=== PATIENT | female | born 1980 | race Caucasian/White ===

== ENCOUNTER 2017-07-31 14:05 | Emergency (ER) | payer SELFPAY ==
[~2017-07-31] VITALS: Ht 162.6 cm; Wt 68.0 kg
[2017-07-31 14:12] VITALS: BP 117/80; PULSE 98; RESP 18; TEMP 98; O2SAT 98
[2017-07-31] MEDS ORDERED: CLINDAMYCIN INJ 600 MG in SODIUM CHLORIDE 0.9% INJ 100 ML IV ONE (15:00)
[2017-07-31] MEDS ORDERED: SODIUM CHLOR 0.9% 1000 ML INJ 1,000 ML IV ONE (15:00)
[2017-07-31] MEDS ORDERED: LIDOCAINE HCL 1% 50 ML VIAL INFIL ONE (15:00)
[2017-07-31] MEDS ORDERED: KETOROLAC TROMETHAMINE 30 MG/ML (IVP) VIAL IVP ONE (15:00)
--- NOTE | 2017-07-31 15:07 | PD ---
HPI Chief Complaint: Skin Problem Time Seen by Provider: 14:38 Travel History International Travel<30 days: No Contact w/Intl Traveler<30days: No Traveled to known affect area: No History of Present Illness HPI The patient is a 37-year-old female who presents to the emergency department for an abscess left forearm. The patient has a history of IV drug abuse, heroin and Dilaudid. The patient states she last used 3-4 days ago. The patient injected the left upper extremity near the elbow, has now developed an abscess. She now notes swelling of the lateral aspect of the elbow with some surrounding erythema and edema. The area is painful. She denies any fever. She denies any Co. chills or sweats. Symptoms are moderate. Pain is worse with palpation and movement. She denies any known history of DVT secondary to IV drug abuse. PFSH Past Medical History Blood Disorders: No Anxiety: Yes Depression: Yes Cancer: No Cardiovascular Problems: No Diminished Hearing: No Endocrine: No Genitourinary: No Headaches: Yes Immune Disorder: No Musculoskeletal: Yes Neurologic: Yes Psychiatric: Yes Reproductive: No Respiratory: No Seizures: No (WHEN GOING THROUGH WITHDRAWAL) ?: Not LMP: 07/26/17 Past Surgical History Other Surgery: Yes (SINUS SURG) Social History Alcohol Use: No Tobacco Use: Yes Substance Use: Yes (TWO DAYS AGO SHE STOPPED BENZO) Allergies-Medications (Allergen,Severity, Reaction): Coded Allergies: No Known Allergies (Unverified , 07/31/17) Review of Systems Except as stated in HPI: all other systems reviewed are Neg General / Constitutional: No: Fever, Chills Cardiovascular: No: Chest Pain or Discomfort Respiratory: No: Shortness of Breath Gastrointestinal: No: Nausea, Vomiting, Abdominal Pain Musculoskeletal: Positive: Edema, Pain Skin: Positive Other (Abscess left elbow) Physical Exam Narrative GENERAL: Awake, alert, pleasant 37-year-old female who appears her stated age and is in no acute respiratory distress. SKIN: Focused skin assessment warm/dry. Multiple tattoos noted. HEAD: Atraumatic. Normocephalic. EYES: Pupils equal and round. No scleral icterus. No injection or drainage. ENT: No nasal bleeding or discharge. Mucous membranes pink and moist. NECK: Trachea midline. No JVD. CARDIOVASCULAR: Regular rate and rhythm. No murmur appreciated. Heart rate in the 90s. RESPIRATORY: No accessory muscle use. Clear to auscultation. Breath sounds equal bilaterally. MUSCULOSKELETAL: The patient has an abscess located in the lateral aspect of the elbow is approximate 4 cm in diameter with underlying fluctuance and surrounding erythema. Positive left radial pulse. The patient is able to flex and extend the elbow, does not appear to be septic joint, however, range of motion does increase her pain. NEUROLOGICAL: Awake and alert. No obvious cranial nerve deficits. Motor grossly within normal limits. Normal speech. PSYCHIATRIC: Appropriate mood and affect; insight and judgment normal. Data Data Last Documented VS Vital Signs Date Time Temp Pulse Resp B/P (MAP) Pulse Ox O2 Delivery O2 Flow Rate FiO2 07/31/17 14:12 98.0 98 18 117/80 (92) 98 Orders Orders Basic Metabolic Panel (Bmp) (07/31/17 14:56) Complete Blood Count With Diff (07/31/17 14:56) Blood Culture (07/31/17 14:56) Wound Culture And Gram Stain (07/31/17 14:56) Iv Access Insert/Monitor (07/31/17 14:56) Ketorolac Inj (Toradol Inj) (07/31/17 15:00) Clindamycin Inj (Cleocin Inj) (07/31/17 15:00) Lidocaine 1% Inj (50 Ml) (Xylocaine 1% I (07/31/17 15:00) Sodium Chlor 0.9% 1000 Ml Inj (Ns 1000 M (07/31/17 15:00) Labs Laboratory Tests Test 07/31/17 15:19 White Blood Count 10.6 TH/MM3 Red Blood Count 3.88 MIL/MM3 Hemoglobin 12.0 GM/DL Hematocrit 35.1 % Mean Corpuscular Volume 90.6 FL Mean Corpuscular Hemoglobin 31.0 PG Mean Corpuscular Hemoglobin Concent 34.2 % Red Cell Distribution Width 15.5 % Platelet Count 530 TH/MM3 Mean Platelet Volume 9.0 FL Neutrophils (%) (Auto) 70.6 % Lymphocytes (%) (Auto) 19.3 % Monocytes (%) (Auto) 8.4 % Eosinophils (%) (Auto) 1.3 % Basophils (%) (Auto) 0.4 % Neutrophils # (Auto) 7.5 TH/MM3 Lymphocytes # (Auto) 2.0 TH/MM3 Monocytes # (Auto) 0.9 TH/MM3 Eosinophils # (Auto) 0.1 TH/MM3 Basophils # (Auto) 0.0 TH/MM3 CBC Comment DIFF FINAL Differential Comment Blood Urea Nitrogen 5 MG/DL Creatinine 0.70 MG/DL Random Glucose 87 MG/DL Calcium Level 8.7 MG/DL Sodium Level 135 MEQ/L Potassium Level 3.6 MEQ/L Chloride Level 99 MEQ/L Carbon Dioxide Level 27.4 MEQ/L Anion Gap 9 MEQ/L Estimat Glomerular Filtration Rate 95 ML/MIN [facility] Medical Decision Making Medical Screen Exam Complete: Yes Emergency Medical Condition: Yes Medical Record Reviewed: Yes Interpretation(s) Laboratory Tests Test 07/31/17 15:19 White Blood Count 10.6 TH/MM3 Red Blood Count 3.88 MIL/MM3 Hemoglobin 12.0 GM/DL Hematocrit 35.1 % Mean Corpuscular Volume 90.6 FL Mean Corpuscular Hemoglobin 31.0 PG Mean Corpuscular Hemoglobin Concent 34.2 % Red Cell Distribution Width 15.5 % Platelet Count 530 TH/MM3 Mean Platelet Volume 9.0 FL Neutrophils (%) (Auto) 70.6 % Lymphocytes (%) (Auto) 19.3 % Monocytes (%) (Auto) 8.4 % Eosinophils (%) (Auto) 1.3 % Basophils (%) (Auto) 0.4 % Neutrophils # (Auto) 7.5 TH/MM3 Lymphocytes # (Auto) 2.0 TH/MM3 Monocytes # (Auto) 0.9 TH/MM3 Eosinophils # (Auto) 0.1 TH/MM3 Basophils # (Auto) 0.0 TH/MM3 CBC Comment DIFF FINAL Differential Comment Blood Urea Nitrogen 5 MG/DL Creatinine 0.70 MG/DL Random Glucose 87 MG/DL Calcium Level 8.7 MG/DL Sodium Level 135 MEQ/L Potassium Level 3.6 MEQ/L Chloride Level 99 MEQ/L Carbon Dioxide Level 27.4 MEQ/L Anion Gap 9 MEQ/L Estimat Glomerular Filtration Rate 95 ML/MIN Differential Diagnosis Differential diagnosis includes abscess, cellulitis, infected wound, septic joint, IVDA, bacteremia, septicemia. Narrative Course IV was established, labs are drawn and sent, and the patient was placed on cardiac telemetry monitoring and continuous pulse oximetry monitoring. The abscess was drained at bedside. Lactic acid and blood culture were sent to lab. The patient was then administered clindamycin 600 mg intravenously 1 L of IV fluids. The patient's abscess was incised and drained by the mid-level provider, Claudio Fung PA-C, please refer to the procedure note. White count is unremarkable. The patient's blood culture and wound culture are pending. The patient is stable for outpatient follow-up, she is advised to follow-up within 48 hours for reevaluation of her abscess. She is also advised to start using drugs. Diagnosis Primary Impression: Abscess of left forearm Patient Instructions: General Instructions Additional Instructions: Medications as directed. Follow-up with your primary physician. Return if symptoms worsen or progress. Reevaluation in 48 hours. Stop using IV drugs. Med/Other Pt SpecificInfo: Prescription(s) given Scripts Clindamycin (Cleocin) 150 Mg Cap 150 MG PO Q6H for Infection for 7 Days, #28 CAP 0 Refills Prov: Kash Sellers MD 07/31/17 Sulfamethoxazole-Trimethoprim (Bactrim DS) 800-160 Mg Tab 1 TAB PO BID for Infection, #14 TAB 0 Refills Prov: Kash Sellers MD 07/31/17 Disposition: 01 DISCHARGE HOME Condition: Stable Kash Sellers MD Jul 31, 2017 15:07
[2017-07-31 15:45] LABS: AUTOMATED NEUTROPHIL # 7.5 TH/MM3 (1.8-7.7); BASOPHIL % 0.4 % (0.0-2.0); EOSINOPHIL # 0.1 TH/MM3 (0-0.4); EOSINOPHIL % 1.3 % (0.0-4.0); HEMATOCRIT 35.1 % (35.0-46.0); LYMPH % 19.3 % (9.0-44.0); MEAN CELL VOLUME 90.6 FL (80.0-100.0); MEAN CORPUSCULAR HGB CONC 34.2 % (32.0-36.0); MONO % 8.4 % (0.0-8.0); MONOCYTE # 0.9 TH/MM3 (0-0.9); NEUT % 70.6 % (16.0-70.0); PLATELET COUNT 530 TH/MM3 (150-450); RED BLOOD COUNT 3.88 MIL/MM3 (4.00-5.30); RED CELL DISTRIBUTION WIDTH 15.5 % (11.6-17.2); WHITE BLOOD COUNT 10.6 TH/MM3 (4.0-11.0)
[2017-07-31 16:16] LABS: BICARBONATE 27.4 MEQ/L (21.0-32.0); CALCIUM 8.7 MG/DL (8.5-10.1); CREATININE 0.7 MG/DL (0.50-1.00)
[2017-07-31] MEDS ORDERED: BACT800T5 PO (16:29)
[2017-07-31] MEDS ORDERED: CLIN150 PO (16:29)
--- NOTE | 2017-07-31 16:32 | PD ---
Physical Exam Date Seen by Provider: Jul 31, 2017 Time Seen by Provider: 16:31 Narrative 37-year-old female that presents to the ED for evaluation of left abscess to her left arm. I was asked drain abscess. Please refer to her note. Data Data Last Documented VS Vital Signs Date Time Temp Pulse Resp B/P (MAP) Pulse Ox O2 Delivery O2 Flow Rate FiO2 07/31/17 14:12 98.0 98 18 117/80 (92) 98 Orders Orders Basic Metabolic Panel (Bmp) (07/31/17 14:56) Complete Blood Count With Diff (07/31/17 14:56) Blood Culture (07/31/17 14:56) Wound Culture And Gram Stain (07/31/17 14:56) Iv Access Insert/Monitor (07/31/17 14:56) Ketorolac Inj (Toradol Inj) (07/31/17 15:00) Clindamycin Inj (Cleocin Inj) (07/31/17 15:00) Lidocaine 1% Inj (50 Ml) (Xylocaine 1% I (07/31/17 15:00) Sodium Chlor 0.9% 1000 Ml Inj (Ns 1000 M (07/31/17 15:00) Ed Discharge Order (07/31/17 16:30) Labs Laboratory Tests Test 07/31/17 15:19 White Blood Count 10.6 TH/MM3 Red Blood Count 3.88 MIL/MM3 Hemoglobin 12.0 GM/DL Hematocrit 35.1 % Mean Corpuscular Volume 90.6 FL Mean Corpuscular Hemoglobin 31.0 PG Mean Corpuscular Hemoglobin Concent 34.2 % Red Cell Distribution Width 15.5 % Platelet Count 530 TH/MM3 Mean Platelet Volume 9.0 FL Neutrophils (%) (Auto) 70.6 % Lymphocytes (%) (Auto) 19.3 % Monocytes (%) (Auto) 8.4 % Eosinophils (%) (Auto) 1.3 % Basophils (%) (Auto) 0.4 % Neutrophils # (Auto) 7.5 TH/MM3 Lymphocytes # (Auto) 2.0 TH/MM3 Monocytes # (Auto) 0.9 TH/MM3 Eosinophils # (Auto) 0.1 TH/MM3 Basophils # (Auto) 0.0 TH/MM3 CBC Comment DIFF FINAL Differential Comment Blood Urea Nitrogen 5 MG/DL Creatinine 0.70 MG/DL Random Glucose 87 MG/DL Calcium Level 8.7 MG/DL Sodium Level 135 MEQ/L Potassium Level 3.6 MEQ/L Chloride Level 99 MEQ/L Carbon Dioxide Level 27.4 MEQ/L Anion Gap 9 MEQ/L Estimat Glomerular Filtration Rate 95 ML/MIN [facility] Medical Record Reviewed: Yes Supervised Visit with RASHIDA: No Procedures Procedure Narrative After the risks and benefits were discussed the following procedure was performed: INCISION AND DRAINAGE OF ABSCESS: The area was prepped and was sterilely draped. A subcutaneous wheal of 1 % Xylocaine with a total number 8 mL was used to anesthetize the area. The area was properly anesthetized. A number 11 scalpel was used to make a 1 -cm incision across the area of the abscess. Cultures were obtained. The abscess was drained an irrigated with normal saline. Quarter inch iodoform packing was placed in the wound. Sterile dressing applied. Patient advised to have packing removed in two days. Diagnosis Primary Impression: Abscess of left forearm Patient Instructions: General Instructions Additional Instruction: Medications as directed. Follow-up with your primary physician. Return if symptoms worsen or progress. Reevaluation in 48 hours. Stop using IV drugs. Scripts Clindamycin (Cleocin) 150 Mg Cap 150 MG PO Q6H for Infection for 7 Days, #28 CAP 0 Refills Prov: Kash Sellers MD 07/31/17 Sulfamethoxazole-Trimethoprim (Bactrim DS) 800-160 Mg Tab 1 TAB PO BID for Infection, #14 TAB 0 Refills Prov: Kash Sellers MD 07/31/17 Disposition: 01 DISCHARGE HOME Condition: Stable Claudio Fung Jul 31, 2017 16:32
== END 2017-07-31 17:22 | disposition home or self-care (01) ==
LOC: NEPC 14:05
DX: L02.414 Cutaneous abscess of left upper limb (principal); F11.10 Opioid abuse, uncomplicated; Z72.0 Tobacco use
CPT/HCPCS: 10060; 80048; 85025; 87040; 96374; 96375; 99283; J1885; J7030

== ENCOUNTER 2017-09-07 07:33 | Inpatient (IN) ==
[2017-09-07 08:21] LABS: Baso % (Auto) 0.2 % (0.0-2.0); Eos # (Auto) 0.2 th/mm3 (0.0-0.4); Eos % (Auto) 1.2 % (0.0-4.0); Hematocrit 36.3 % (35.0-46.0); Hemoglobin 12.2 gm/dL (11.6-15.3); Lymph # (Auto) 1.3 th/mm3 (1.0-4.8); Lymph % (Auto) 8.1 % (9.0-44.0); Mean Corpuscular HGB Conc 33.5 % (32.0-36.0); Mean Corpuscular Hemoglobin 29.8 pg (27.0-34.0); Mean Corpuscular Volume 89.2 fL (80.0-100.0); Mean Platelet Volume 7.5 fL (7.0-11.0); Mono # (Auto) 1.2 th/mm3 (0.0-0.9); Mono % (Auto) 7.3 % (0.0-8.0); Neut # (Auto) 13.3 th/mm3 (1.8-7.7); Neut % (Auto) 83.2 % (16.0-70.0); Platelet Count 559 th/mm3 (150-450); Red Blood Count 4.07 mil/mm3 (4.00-5.30); Red Cell Distribution Width 14.1 % (11.6-17.2); White Blood Count 15.9 th/mm3 (4.0-11.0)
[2017-09-07 08:32] LABS: Anion Gap 5 meq/L (5-15); Blood Urea Nitrogen 7 mg/dL (7-18); Calcium 8.8 mg/dL (8.5-10.1); Carbon Dioxide 32.1 meq/L (21.0-32.0); Chloride 101 meq/L (98-107); Glomerular Filtration Rate Greater Than 89 mL/min (>89); Glucose,Random 98 mg/dL (74-106); Potassium 3.5 meq/L (3.5-5.1); Sodium 138 meq/L (136-145)
[2017-09-07] MEDS ORDERED: Clindamycin 900 mg/NS Premix 900 MG/50 ML PIGGYBACK IV.SIG ONE (10:04)
[2017-09-07] MEDS ORDERED: Morphine Sulfate Inj 2 MG/ML Vial IV.PUSH ONE (10:04)
[2017-09-07] MEDS ORDERED: Piperacil/Tazo 3.375 GM Premix 50 ML IV.SIG ONE (10:04)
--- NOTE | 2017-09-07 12:08 | ED ---
HPI General Chief complaint: Skin/Abscess/Foreign Body Stated complaint: Left arm pain/Evac Time Seen by Provider: 09/07/17 09:19 Source: patient Mode of arrival: ambulatory Limitations: no limitations History of Present Illness MD complaint: rash and abscess/boil Onset (ago): day(s) Tetanus Immunization: <5 Years Location: LUE Severity: moderate Severity scale (1-10): 8 Quality: sharp Pain Consistency: constant Relieving factors: none Exacerbating factors: none Context: none Associated symptoms: denies other symptoms Treatments prior to arrival: none Related Data Home Medications Medication Instructions Recorded Confirmed No Known Home Medications 09/07/17 09/07/17 Previous Rx's Medication Instructions Recorded sulfamethoxazole-trimethoprim 1 tab PO BID #10 tab 09/14/17 [Bactrim DS] Allergies Allergy/AdvReac Type Severity Reaction Status Date / Time vancomycin Allergy Severe Hives Verified 09/07/17 18:37 Review of Systems Except as stated in HPI: all other systems reviewed are negative PMFSH History History Provided By: Patient Medical History Medical History IV drug abuse (Acute) Surgical History Surgical History Hx of sinus surgery (Acute) Social History Social History Substance History: Active Abuse Second Hand Smoke Exposure: Yes Smoking Status: Current every day smoker Tobacco Type: Cigarettes How Often Do You Have a Drink Containing Alcohol: Never Recent Travel in [place] within the Last 8 Weeks: No Recent Out of Country Travel within the Last 8 Weeks: No Substance Abuse Detail Heroin: Substance Use Status: Active Route Used Substance Abuse: Intravenously Reason for Use: Get High Crack/Cocaine: Substance Use Status: Active Route Used Substance Abuse: Inhalation Reason for Use: Get High Immunization History Tetanus Immunization: >5 Years Hx Influenza Vaccine This Season: No Exam Narrative Exam Narrative: GENERAL: Well-nourished, well-developed patient in no apparent distress. SKIN: Warm and dry. HEAD: Atraumatic. Normocephalic. EYES: Pupils equal and round. No scleral icterus. No injection or drainage. ENT: No nasal bleeding or discharge. Mucous membranes pink and moist. NECK: Trachea midline. No JVD. CARDIOVASCULAR: Regular rate and rhythm. no murmurs rubs or gallops RESPIRATORY: No accessory muscle use. Clear to auscultation. Breath sounds equal bilaterally. GASTROINTESTINAL: Abdomen soft, non-tender, nondistended. No rebound or guarding MUSCULOSKELETAL: Extremities without clubbing, cyanosis, or edema. No obvious deformities. left elbow abscess to proximal forearm, ttp, erythematous/warm to touch, size of a softball in diameter. NEUROLOGICAL: Awake and alert. No obvious cranial nerve deficits. Motor grossly within normal limits. Five out of 5 muscle strength in the arms and legs. Normal speech. PSYCHIATRIC: Appropriate mood and affect; insight and judgment normal. Course Initial Documented Vital Signs Temperature 99.0 F 09/07/17 07:42 Pulse Rate 97 H 09/07/17 07:42 Respiratory Rate 18 09/07/17 07:42 Blood Pressure 106/63 09/07/17 07:42 Pulse Oximetry 100 09/07/17 07:42 Last Documented Vital Signs Temperature 97.9 F 09/14/17 12:00 Pulse Rate 68 09/14/17 12:00 Respiratory Rate 21 09/14/17 12:00 Blood Pressure 111/60 09/14/17 12:00 Pulse Oximetry 98 09/14/17 12:00 Medical Decision Making POC Test Results POC Urine Results: Negative Lab Data Lab results reviewed: Yes I reviewed the patient's lab results. Result diagrams: 09/14/17 08:01 09/14/17 08:01 Lab Results 09/07/17 09/07/17 09/07/17 Range/Units 08:00 08:00 08:00 WBC 15.9 H (4.0-11.0) th/mm3 RBC 4.07 (4.00-5.30) mil/mm3 Hgb 12.2 (11.6-15.3) gm/dL Hct 36.3 (35.0-46.0) % MCV 89.2 (80.0-100.0) fL MCH 29.8 (27.0-34.0) pg MCHC 33.5 (32.0-36.0) % RDW 14.1 (11.6-17.2) % Plt Count 559 H (150-450) th/mm3 MPV 7.5 (7.0-11.0) fL Neut % (Auto) 83.2 H (16.0-70.0) % Lymph % (Auto) 8.1 L (9.0-44.0) % [place] % (Auto) 7.3 (0.0-8.0) % Eos % (Auto) 1.2 (0.0-4.0) % Baso % (Auto) 0.2 (0.0-2.0) % Neut # (Auto) 13.3 H (1.8-7.7) th/mm3 Lymph # (Auto) 1.3 (1.0-4.8) th/mm3 [place] # (Auto) 1.2 H (0.0-0.9) th/mm3 Eos # (Auto) 0.2 (0.0-0.4) th/mm3 Baso # (Auto) 0.0 (0.0-0.2) th/mm3 WBC Differential . Differential Comment Auto diff final PT (9.8-11.6) sec INR Ratio Sodium 138 (136-145) meq/L Potassium 3.5 (3.5-5.1) meq/L Chloride 101 (98-107) meq/L Carbon Dioxide 32.1 H (21.0-32.0) meq/L Anion Gap 5 (5-15) meq/L BUN 7 (7-18) mg/dL Creatinine 0.67 (0.50-1.00) mg/dL Estimated GFR Greater than 89 (>89) mL/min Random Glucose 98 (74-106) mg/dL Lactic Acid 0.8 (0.4-2.0) mmol/L Calcium 8.8 (8.5-10.1) mg/dL Total Bilirubin (0.2-1.0) mg/dL Direct Bilirubin (0.0-0.2) mg/dL Indirect Bilirubin (0.0-0.8) mg/dL AST (15-37) U/L ALT (10-53) U/L Alkaline Phosphatase (45-117) U/L Total Creatine Kinase (26-192) U/L Troponin I (0.02-0.05) ng/mL Total Protein (6.4-8.2) g/dL Albumin (3.4-5.0) g/dL Urine Color (Yellw/Straw) Urine Clarity (Clear) Urine pH (5.0-8.5) Ur Specific [place] (1.002-1.035) Urine Protein (Neg-Trace) mg/dL Urine Glucose (UA) (Negative) mg/dL Urine Ketones (Negative) mg/dL Urine Occult Blood (Negative) Urine Nitrate (Negative) Urine Bilirubin (Negative) Urine Urobilinogen (Less than 2) mg/dL Ur Leukocyte Esterase (Negative) Urine RBC (0-3) /hpf Urine WBC (0-5) /hpf Ur Squamous Epith Cells (0-5) /hpf Amorphous Sediment (None) /hpf Urine Bacteria (None) /hpf Micro UA Comment Urine Culture Comments Urine Opiates Screen (Neg) Ur Barbiturates Screen (Neg) Ur Amphetamines Screen (Neg) U Benzodiazepines Scrn (Neg) Urine Cocaine Screen (Neg) U Cannabinoids Screen (Neg) Blood Type Blood Type Recheck Antibody Screen 09/07/17 09/07/17 09/07/17 Range/Units 08:00 16:30 16:30 WBC (4.0-11.0) th/mm3 RBC (4.00-5.30) mil/mm3 Hgb (11.6-15.3) gm/dL Hct (35.0-46.0) % MCV (80.0-100.0) fL MCH (27.0-34.0) pg MCHC (32.0-36.0) % RDW (11.6-17.2) % Plt Count (150-450) th/mm3 MPV (7.0-11.0) fL Neut % (Auto) (16.0-70.0) % Lymph % (Auto) (9.0-44.0) % [place] % (Auto) (0.0-8.0) % Eos % (Auto) (0.0-4.0) % Baso % (Auto) (0.0-2.0) % Neut # (Auto) (1.8-7.7) th/mm3 Lymph # (Auto) (1.0-4.8) th/mm3 [place] # (Auto) (0.0-0.9) th/mm3 Eos # (Auto) (0.0-0.4) th/mm3 Baso # (Auto) (0.0-0.2) th/mm3 WBC Differential Differential Comment PT (9.8-11.6) sec INR Ratio Sodium (136-145) meq/L Potassium (3.5-5.1) meq/L Chloride (98-107) meq/L Carbon Dioxide (21.0-32.0) meq/L Anion Gap (5-15) meq/L BUN (7-18) mg/dL Creatinine (0.50-1.00) mg/dL Estimated GFR (>89) mL/min Random Glucose (74-106) mg/dL Lactic Acid (0.4-2.0) mmol/L Calcium (8.5-10.1) mg/dL Total Bilirubin 0.7 (0.2-1.0) mg/dL Direct Bilirubin 0.2 (0.0-0.2) mg/dL Indirect Bilirubin 0.5 (0.0-0.8) mg/dL AST 13 L (15-37) U/L ALT 15 (10-53) U/L Alkaline Phosphatase 105 (45-117) U/L Total Creatine Kinase (26-192) U/L Troponin I (0.02-0.05) ng/mL Total Protein 7.4 (6.4-8.2) g/dL Albumin 3.1 L (3.4-5.0) g/dL Urine Color [place] (Yellw/Straw) Urine Clarity Turbid H (Clear) Urine pH 7.0 (5.0-8.5) Ur Specific [place] 1.021 (1.002-1.035) Urine Protein 30 H (Neg-Trace) mg/dL Urine Glucose (UA) Negative (Negative) mg/dL Urine Ketones 20 (Negative) mg/dL Urine Occult Blood Negative (Negative) Urine Nitrate Positive H (Negative) Urine Bilirubin Negative (Negative) Urine Urobilinogen 2.0 H (Less than 2) mg/dL Ur Leukocyte Esterase Trace H (Negative) Urine RBC 3 (0-3) /hpf Urine WBC 46 H (0-5) /hpf Ur Squamous Epith Cells 22 (0-5) /hpf Amorphous Sediment Rare H (None) /hpf Urine Bacteria Few H (None) /hpf Micro UA Comment Culture indicated Urine Culture Comments Culture indicated Urine Opiates Screen Pos H (Neg) Ur Barbiturates Screen Neg (Neg) Ur Amphetamines Screen Pos H (Neg) U Benzodiazepines Scrn Neg (Neg) Urine Cocaine Screen Pos H (Neg) U Cannabinoids Screen Neg (Neg) Blood Type Blood Type Recheck Antibody Screen 09/08/17 09/08/17 09/08/17 Range/Units 05:22 05:22 05:22 WBC 16.6 H (4.0-11.0) th/mm3 RBC 3.48 L (4.00-5.30) mil/mm3 Hgb 10.5 L (11.6-15.3) gm/dL Hct 30.9 L (35.0-46.0) % MCV 88.6 (80.0-100.0) fL MCH 30.1 (27.0-34.0) pg MCHC 33.9 (32.0-36.0) % RDW 14.0 (11.6-17.2) % Plt Count 553 H (150-450) th/mm3 MPV 7.4 (7.0-11.0) fL Neut % (Auto) 82.5 H (16.0-70.0) % Lymph % (Auto) 8.9 L (9.0-44.0) % [place] % (Auto) 7.6 (0.0-8.0) % Eos % (Auto) 0.8 (0.0-4.0) % Baso % (Auto) 0.2 (0.0-2.0) % Neut # (Auto) 13.7 H (1.8-7.7) th/mm3 Lymph # (Auto) 1.5 (1.0-4.8) th/mm3 [place] # (Auto) 1.3 H (0.0-0.9) th/mm3 Eos # (Auto) 0.1 (0.0-0.4) th/mm3 Baso # (Auto) 0.0 (0.0-0.2) th/mm3 WBC Differential . Differential Comment Auto diff final PT (9.8-11.6) sec INR Ratio Sodium 137 (136-145) meq/L Potassium 3.2 L (3.5-5.1) meq/L Chloride 102 (98-107) meq/L Carbon Dioxide 23.7 (21.0-32.0) meq/L Anion Gap 11 (5-15) meq/L BUN 6 L (7-18) mg/dL Creatinine 0.64 (0.50-1.00) mg/dL Estimated GFR Greater than 89 (>89) mL/min Random Glucose 76 (74-106) mg/dL Lactic Acid (0.4-2.0) mmol/L Calcium 8.1 L (8.5-10.1) mg/dL Total Bilirubin 0.7 (0.2-1.0) mg/dL Direct Bilirubin (0.0-0.2) mg/dL Indirect Bilirubin (0.0-0.8) mg/dL AST 12 L (15-37) U/L ALT 11 (10-53) U/L Alkaline Phosphatase 117 (45-117) U/L Total Creatine Kinase 26 (26-192) U/L Troponin I Less than 0.02 L (0.02-0.05) ng/mL Total Protein 6.4 D (6.4-8.2) g/dL Albumin 2.4 L D (3.4-5.0) g/dL Urine Color (Yellw/Straw) Urine Clarity (Clear) Urine pH (5.0-8.5) Ur Specific [place] (1.002-1.035) Urine Protein (Neg-Trace) mg/dL Urine Glucose (UA) (Negative) mg/dL Urine Ketones (Negative) mg/dL Urine Occult Blood (Negative) Urine Nitrate (Negative) Urine Bilirubin (Negative) Urine Urobilinogen (Less than 2) mg/dL Ur Leukocyte Esterase (Negative) Urine RBC (0-3) /hpf Urine WBC (0-5) /hpf Ur Squamous Epith Cells (0-5) /hpf Amorphous Sediment (None) /hpf Urine Bacteria (None) /hpf Micro UA Comment Urine Culture Comments Urine Opiates Screen (Neg) Ur Barbiturates Screen (Neg) Ur Amphetamines Screen (Neg) U Benzodiazepines Scrn (Neg) Urine Cocaine Screen (Neg) U Cannabinoids Screen (Neg) Blood Type Blood Type Recheck Antibody Screen 09/08/17 09/08/17 09/09/17 Range/Units 05:22 05:22 12:22 WBC 11.2 H (4.0-11.0) th/mm3 RBC 3.35 L (4.00-5.30) mil/mm3 Hgb 9.7 L (11.6-15.3) gm/dL Hct 29.8 L (35.0-46.0) % MCV 88.8 (80.0-100.0) fL MCH 29.0 (27.0-34.0) pg MCHC 32.7 (32.0-36.0) % RDW 14.5 (11.6-17.2) % Plt Count 550 H (150-450) th/mm3 MPV 7.4 (7.0-11.0) fL Neut % (Auto) 80.7 H (16.0-70.0) % Lymph % (Auto) 13.0 (9.0-44.0) % [place] % (Auto) 5.2 (0.0-8.0) % Eos % (Auto) 0.8 (0.0-4.0) % Baso % (Auto) 0.3 (0.0-2.0) % Neut # (Auto) 9.1 H (1.8-7.7) th/mm3 Lymph # (Auto) 1.5 (1.0-4.8) th/mm3 [place] # (Auto) 0.6 (0.0-0.9) th/mm3 Eos # (Auto) 0.1 (0.0-0.4) th/mm3 Baso # (Auto) 0.0 (0.0-0.2) th/mm3 WBC Differential . Differential Comment Auto diff final PT 11.3 (9.8-11.6) sec INR 1.1 Ratio Sodium (136-145) meq/L Potassium (3.5-5.1) meq/L Chloride (98-107) meq/L Carbon Dioxide (21.0-32.0) meq/L Anion Gap (5-15) meq/L BUN (7-18) mg/dL Creatinine (0.50-1.00) mg/dL Estimated GFR (>89) mL/min Random Glucose (74-106) mg/dL Lactic Acid (0.4-2.0) mmol/L Calcium (8.5-10.1) mg/dL Total Bilirubin (0.2-1.0) mg/dL Direct Bilirubin (0.0-0.2) mg/dL Indirect Bilirubin (0.0-0.8) mg/dL AST (15-37) U/L ALT (10-53) U/L Alkaline Phosphatase (45-117) U/L Total Creatine Kinase (26-192) U/L Troponin I (0.02-0.05) ng/mL Total Protein (6.4-8.2) g/dL Albumin (3.4-5.0) g/dL Urine Color ([place]ellw/Straw) Urine Clarity (Clear) Urine pH (5.0-8.5) Ur Specific [place] (1.002-1.035) Urine Protein (Neg-Trace) mg/dL Urine Glucose (UA) (Negative) mg/dL Urine Ketones (Negative) mg/dL Urine Occult Blood (Negative) Urine Nitrate (Negative) Urine Bilirubin (Negative) Urine Urobilinogen (Less than 2) mg/dL Ur Leukocyte Esterase (Negative) Urine RBC (0-3) /hpf Urine WBC (0-5) /hpf Ur Squamous Epith Cells (0-5) /hpf Amorphous Sediment (None) /hpf Urine Bacteria (None) /hpf Micro UA Comment Urine Culture Comments Urine Opiates Screen (Neg) Ur Barbiturates Screen (Neg) Ur Amphetamines Screen (Neg) U Benzodiazepines Scrn (Neg) Urine Cocaine Screen (Neg) U Cannabinoids Screen (Neg) Blood Type O Positive Blood Type Recheck Required Antibody Screen Negative 09/09/17 09/10/17 09/10/17 Range/Units 12:22 07:44 07:44 WBC 7.5 (4.0-11.0) th/mm3 RBC 3.10 L (4.00-5.30) mil/mm3 Hgb 9.2 L (11.6-15.3) gm/dL Hct 27.3 L (35.0-46.0) % MCV 88.3 (80.0-100.0) fL MCH 29.6 (27.0-34.0) pg MCHC 33.5 (32.0-36.0) % RDW 14.4 (11.6-17.2) % Plt Count 554 H (150-450) th/mm3 MPV 7.6 (7.0-11.0) fL Neut % (Auto) 62.9 (16.0-70.0) % Lymph % (Auto) 26.0 (9.0-44.0) % [place] % (Auto) 7.5 (0.0-8.0) % Eos % (Auto) 3.1 (0.0-4.0) % Baso % (Auto) 0.5 (0.0-2.0) % Neut # (Auto) 4.7 (1.8-7.7) th/mm3 Lymph # (Auto) 1.9 (1.0-4.8) th/mm3 [place] # (Auto) 0.6 (0.0-0.9) th/mm3 Eos # (Auto) 0.2 (0.0-0.4) th/mm3 Baso # (Auto) 0.0 (0.0-0.2) th/mm3 WBC Differential . Differential Comment Auto diff final PT (9.8-11.6) sec INR Ratio Sodium 141 143 (136-145) meq/L Potassium 3.6 4.0 (3.5-5.1) meq/L Chloride 105 108 H (98-107) meq/L Carbon Dioxide 24.7 25.1 (21.0-32.0) meq/L Anion Gap 11 10 (5-15) meq/L BUN 7 10 (7-18) mg/dL Creatinine 0.57 0.69 (0.50-1.00) mg/dL Estimated GFR Greater than 89 Greater than 89 (>89) mL/min Random Glucose 114 H 73 L (74-106) mg/dL Lactic Acid (0.4-2.0) mmol/L Calcium 8.4 L 8.5 (8.5-10.1) mg/dL Total Bilirubin 0.2 (0.2-1.0) mg/dL Direct Bilirubin (0.0-0.2) mg/dL Indirect Bilirubin (0.0-0.8) mg/dL AST 12 L (15-37) U/L ALT 12 (10-53) U/L Alkaline Phosphatase 101 (45-117) U/L Total Creatine Kinase (26-192) U/L Troponin I (0.02-0.05) ng/mL Total Protein 6.3 L (6.4-8.2) g/dL Albumin 2.2 L (3.4-5.0) g/dL Urine Color ([place]/Straw) Urine Clarity (Clear) Urine pH (5.0-8.5) Ur Specific [place] (1.002-1.035) Urine Protein (Neg-Trace) mg/dL Urine Glucose (UA) (Negative) mg/dL Urine Ketones (Negative) mg/dL Urine Occult Blood (Negative) Urine Nitrate (Negative) Urine Bilirubin (Negative) Urine Urobilinogen (Less than 2) mg/dL Ur Leukocyte Esterase (Negative) Urine RBC (0-3) /hpf Urine WBC (0-5) /hpf Ur Squamous Epith Cells (0-5) /hpf Amorphous Sediment (None) /hpf Urine Bacteria (None) /hpf Micro UA Comment Urine Culture Comments Urine Opiates Screen (Neg) Ur Barbiturates Screen (Neg) Ur Amphetamines Screen (Neg) U Benzodiazepines Scrn (Neg) Urine Cocaine Screen (Neg) U Cannabinoids Screen (Neg) Blood Type Blood Type Recheck Antibody Screen 09/11/17 09/11/17 09/12/17 Range/Units 13:40 13:40 07:43 WBC 8.1 8.5 (4.0-11.0) th/mm3 RBC 3.38 L 3.45 L (4.00-5.30) mil/mm3 Hgb 10.0 L 10.2 L (11.6-15.3) gm/dL Hct 30.1 L 30.5 L (35.0-46.0) % MCV 89.1 88.4 (80.0-100.0) fL MCH 29.6 29.4 (27.0-34.0) pg MCHC 33.3 33.3 (32.0-36.0) % RDW 14.6 14.4 (11.6-17.2) % Plt Count 648 H 679 H (150-450) th/mm3 MPV 7.3 7.3 (7.0-11.0) fL Neut % (Auto) 64.0 (16.0-70.0) % Lymph % (Auto) 26.6 (9.0-44.0) % [place] % (Auto) 5.4 (0.0-8.0) % Eos % (Auto) 3.1 (0.0-4.0) % Baso % (Auto) 0.9 (0.0-2.0) % Neut # (Auto) 5.4 (1.8-7.7) th/mm3 Lymph # (Auto) 2.3 (1.0-4.8) th/mm3 [place] # (Auto) 0.5 (0.0-0.9) th/mm3 Eos # (Auto) 0.3 (0.0-0.4) th/mm3 Baso # (Auto) 0.1 (0.0-0.2) th/mm3 WBC Differential . Differential Comment Auto diff final PT (9.8-11.6) sec INR Ratio Sodium 141 (136-145) meq/L Potassium 3.9 (3.5-5.1) meq/L Chloride 106 (98-107) meq/L Carbon Dioxide 26.6 (21.0-32.0) meq/L Anion Gap 8 (5-15) meq/L BUN 10 (7-18) mg/dL Creatinine 0.69 (0.50-1.00) mg/dL Estimated GFR Greater than 89 (>89) mL/min Random Glucose 104 (74-106) mg/dL Lactic Acid (0.4-2.0) mmol/L Calcium 8.3 L (8.5-10.1) mg/dL Total Bilirubin (0.2-1.0) mg/dL Direct Bilirubin (0.0-0.2) mg/dL Indirect Bilirubin (0.0-0.8) mg/dL AST (15-37) U/L ALT (10-53) U/L Alkaline Phosphatase (45-117) U/L Total Creatine Kinase (26-192) U/L Troponin I (0.02-0.05) ng/mL Total Protein (6.4-8.2) g/dL Albumin (3.4-5.0) g/dL Urine Color ([place]/Straw) Urine Clarity (Clear) Urine pH (5.0-8.5) Ur Specific [place] (1.002-1.035) Urine Protein (Neg-Trace) mg/dL Urine Glucose (UA) (Negative) mg/dL Urine Ketones (Negative) mg/dL Urine Occult Blood (Negative) Urine Nitrate (Negative) Urine Bilirubin (Negative) Urine Urobilinogen (Less than 2) mg/dL Ur Leukocyte Esterase (Negative) Urine RBC (0-3) /hpf Urine WBC (0-5) /hpf Ur Squamous Epith Cells (0-5) /hpf Amorphous Sediment (None) /hpf Urine Bacteria (None) /hpf Micro UA Comment Urine Culture Comments Urine Opiates Screen (Neg) Ur Barbiturates Screen (Neg) Ur Amphetamines Screen (Neg) U Benzodiazepines Scrn (Neg) Urine Cocaine Screen (Neg) U Cannabinoids Screen (Neg) Blood Type Blood Type Recheck Antibody Screen 09/12/17 09/13/17 09/13/17 Range/Units 07:43 06:56 06:56 WBC 6.2 (4.0-11.0) th/mm3 RBC 3.53 L (4.00-5.30) mil/mm3 Hgb 10.4 L (11.6-15.3) gm/dL Hct 31.5 L (35.0-46.0) % MCV 89.2 (80.0-100.0) fL MCH 29.4 (27.0-34.0) pg MCHC 33.0 (32.0-36.0) % RDW 14.3 (11.6-17.2) % Plt Count 674 H (150-450) th/mm3 MPV 7.2 (7.0-11.0) fL Neut % (Auto) 44.9 (16.0-70.0) % Lymph % (Auto) 42.3 (9.0-44.0) % [place] % (Auto) 8.0 (0.0-8.0) % Eos % (Auto) 3.9 (0.0-4.0) % Baso % (Auto) 0.9 (0.0-2.0) % Neut # (Auto) 2.8 (1.8-7.7) th/mm3 Lymph # (Auto) 2.6 (1.0-4.8) th/mm3 [place] # (Auto) 0.5 (0.0-0.9) th/mm3 Eos # (Auto) 0.2 (0.0-0.4) th/mm3 Baso # (Auto) 0.1 (0.0-0.2) th/mm3 WBC Differential . Differential Comment Auto diff final PT (9.8-11.6) sec INR Ratio Sodium 140 140 (136-145) meq/L Potassium 4.4 4.3 (3.5-5.1) meq/L Chloride 105 103 (98-107) meq/L Carbon Dioxide 30.1 29.2 (21.0-32.0) meq/L Anion Gap 5 8 (5-15) meq/L BUN 12 16 (7-18) mg/dL Creatinine 0.75 0.73 (0.50-1.00) mg/dL Estimated GFR 88 L Greater than 89 (>89) mL/min Random Glucose 75 78 (74-106) mg/dL Lactic Acid (0.4-2.0) mmol/L Calcium 8.6 8.5 (8.5-10.1) mg/dL Total Bilirubin 0.1 L 0.1 L (0.2-1.0) mg/dL Direct Bilirubin (0.0-0.2) mg/dL Indirect Bilirubin (0.0-0.8) mg/dL AST 11 L 10 L (15-37) U/L ALT 13 11 (10-53) U/L Alkaline Phosphatase 83 83 (45-117) U/L Total Creatine Kinase (26-192) U/L Troponin I (0.02-0.05) ng/mL Total Protein 6.1 L 6.1 L (6.4-8.2) g/dL Albumin 2.4 L 2.5 L (3.4-5.0) g/dL Urine Color ([place]ellw/Straw) Urine Clarity (Clear) Urine pH (5.0-8.5) Ur Specific [place] (1.002-1.035) Urine Protein (Neg-Trace) mg/dL Urine Glucose (UA) (Negative) mg/dL Urine Ketones (Negative) mg/dL Urine Occult Blood (Negative) Urine Nitrate (Negative) Urine Bilirubin (Negative) Urine Urobilinogen (Less than 2) mg/dL Ur Leukocyte Esterase (Negative) Urine RBC (0-3) /hpf Urine WBC (0-5) /hpf Ur Squamous Epith Cells (0-5) /hpf Amorphous Sediment (None) /hpf Urine Bacteria (None) /hpf Micro UA Comment Urine Culture Comments Urine Opiates Screen (Neg) Ur Barbiturates Screen (Neg) Ur Amphetamines Screen (Neg) U Benzodiazepines Scrn (Neg) Urine Cocaine Screen (Neg) U Cannabinoids Screen (Neg) Blood Type Blood Type Recheck Antibody Screen 09/14/17 09/14/17 Range/Units 08:01 08:01 WBC 6.0 (4.0-11.0) th/mm3 RBC 3.42 L (4.00-5.30) mil/mm3 Hgb 10.2 L (11.6-15.3) gm/dL Hct 30.6 L (35.0-46.0) % MCV 89.4 (80.0-100.0) fL MCH 29.9 (27.0-34.0) pg MCHC 33.4 (32.0-36.0) % RDW 14.6 (11.6-17.2) % Plt Count 670 H (150-450) th/mm3 MPV 7.3 (7.0-11.0) fL Neut % (Auto) 44.6 (16.0-70.0) % Lymph % (Auto) 42.6 (9.0-44.0) % [place] % (Auto) 7.8 (0.0-8.0) % Eos % (Auto) 3.7 (0.0-4.0) % Baso % (Auto) 1.3 (0.0-2.0) % Neut # (Auto) 2.7 (1.8-7.7) th/mm3 Lymph # (Auto) 2.5 (1.0-4.8) th/mm3 [place] # (Auto) 0.5 (0.0-0.9) th/mm3 Eos # (Auto) 0.2 (0.0-0.4) th/mm3 Baso # (Auto) 0.1 (0.0-0.2) th/mm3 WBC Differential . Differential Comment Auto diff final PT (9.8-11.6) sec INR Ratio Sodium 140 (136-145) meq/L Potassium 4.3 (3.5-5.1) meq/L Chloride 104 (98-107) meq/L Carbon Dioxide 28.7 (21.0-32.0) meq/L Anion Gap 7 (5-15) meq/L BUN 14 (7-18) mg/dL Creatinine 0.81 (0.50-1.00) mg/dL Estimated GFR 80 L (>89) mL/min Random Glucose 84 (74-106) mg/dL Lactic Acid (0.4-2.0) mmol/L Calcium 8.4 L (8.5-10.1) mg/dL Total Bilirubin Less than 0.1 L (0.2-1.0) mg/dL Direct Bilirubin (0.0-0.2) mg/dL Indirect Bilirubin (0.0-0.8) mg/dL AST 11 L (15-37) U/L ALT 11 (10-53) U/L Alkaline Phosphatase 86 (45-117) U/L Total Creatine Kinase (26-192) U/L Troponin I (0.02-0.05) ng/mL Total Protein 6.0 L (6.4-8.2) g/dL Albumin 2.4 L (3.4-5.0) g/dL Urine Color (Yellw/Straw) Urine Clarity (Clear) Urine pH (5.0-8.5) Ur Specific [place] (1.002-1.035) Urine Protein (Neg-Trace) mg/dL Urine Glucose (UA) (Negative) mg/dL Urine Ketones (Negative) mg/dL Urine Occult Blood (Negative) Urine Nitrate (Negative) Urine Bilirubin (Negative) Urine Urobilinogen (Less than 2) mg/dL Ur Leukocyte Esterase (Negative) Urine RBC (0-3) /hpf Urine WBC (0-5) /hpf Ur Squamous Epith Cells (0-5) /hpf Amorphous Sediment (None) /hpf Urine Bacteria (None) /hpf Micro UA Comment Urine Culture Comments Urine Opiates Screen (Neg) Ur Barbiturates Screen (Neg) Ur Amphetamines Screen (Neg) U Benzodiazepines Scrn (Neg) Urine Cocaine Screen (Neg) U Cannabinoids Screen (Neg) Blood Type Blood Type Recheck Antibody Screen Imaging Data Radiologist's impression: Forearm MRI 09/07/17 00:00 CONCLUSION: 1. Greater than 9 cm subcutaneous abscess about the medial aspect of the proximal forearm surrounding the ulna without signal abnormality within the marrow of the ulna. There is evidence of some involvement of the adjacent dorsal musculature. Discharge Plan Discharge Disposition Patient Disposition: 01 Discharge Home Discharge Condition Condition: Stable Discharge Order Discharge Orders: Discharge Order (Routine); Ordered 09/14/17 Ordered By: Olga Roberts Discharge Details Anticipated Discharge Date: 09/14/17 Discharge Comment: pt has ride to sober living house. Diagnosis: IVDU (intravenous drug user), Abscess of upper arm and forearm, left Physicians Team ED Provider: Papi Cannon Primary Care Provider: Primary Care Naima,Suad Attending Provider: Mali Womack Other Providers: Kodak Morillo Discharge Interventions Interventions: ED Discharge Assessment Last Done: 09/07/17 18:35 Status ED Status: Left Department Discharge Information Discharge Date/Time: 09/07/17 18:36
[2017-09-07] MEDS ORDERED: Gadobutrol PF 7.5 MMOL/7.5 ML Vial (for RAD) IV.SIG ONE (13:13)
--- NOTE | 2017-09-07 14:23 | P.HPFP ---
History of Present Illness Primary Care Physician: No Primary Care Physician <Mali Womack - 09/07/17 21:30> No Primary Care Physician <Marta Grace - 09/07/17 14:23> Chief Complaint: Left arm pain <Marta Grace 09/07/17 20:15> History of Present Illness: Ms. Contreras is a 37-year-old white female with a past medical history of IV drug use presenting today with left arm pain. She states that she started having excruciating pain in that arm about 1-2 days ago. She originally thought she that she had an abscess. She used heroin in that arm 2 days ago. She uses it daily. She last used yesterday. She usually injects in her right arm wherever there is an open area. She states that the pain was preceded by swelling and redness a few days before. She reports fevers/chills since last night, night sweats, racing heart. She also states that she has had left-sided chest pain, but is unable to describe it due to her drifting in and out of sleep. PMH: none PSH: sinus surgery Meds: none FHx Mother- healthy father- healthy [place] Alcohol- none Cigarettes- 1 ppd since 18yo Illicit- cocaine, heroin <Marta Grace 09/07/17 20:15> - Diagnosis (1) Cellulitis of left arm (2) UTI (urinary tract infection) (3) IVDU (intravenous drug user) (4) Nutrition, metabolism, and development symptoms (5) DVT prophylaxis <Mali Womack - 09/07/17 21:30> (1) Cellulitis of left arm (2) UTI (urinary tract infection) (3) IVDU (intravenous drug user) (4) Nutrition, metabolism, and development symptoms (5) DVT prophylaxis <Marta Grace 09/07/17 20:16> Review of Systems Constitutional: Reports chills, Reports fever(s), Reports headache(s) <Marta Grace 09/07/17 14:23> Eyes: Reports blurry vision <Marta Grace 09/07/17 14:23> Cardiovascular: Reports chest pain, Reports excessive sweating <Marta Grace 09/07/17 14:23> Respiratory: Denies cough, Denies shortness of breath <Marta Grace 14:23> Gastrointestinal: Reports abdominal pain <Marta Grace 09/07/17 14:23> Genitourinary: Reports difficulty urinating, Reports painful urination, Denies blood in urine <Marta Grace 09/07/17 14:23> Neurologic: Reports tingling/numbness/burning sensations <Marta Grace 09/07 14:23> PMFSH - History History Provided By: Patient <Marta Grace 09/07/17 14:23> - Medical History Medical History: Medical History (Last Reviewed 09/07/17 @ 18:37 by Yecenia Dale RN) IV drug abuse <Mali Womack 09/07/17 21:28> Medical History (Last Reviewed 09/07/17 @ 18:37 by Yecenia Dale RN) IV drug abuse <Marta Grace 09/07/17 20:15> - Surgical History Surgical History: Surgical History (Last Reviewed 09/07/17 @ 18:37 by Yecenia Dale RN) Hx of sinus surgery <Mali Womack 09/07/17 21:28> Surgical History (Last Reviewed 09/07/17 @ 18:37 by Yecenia aDle, KARLA) Hx of sinus surgery <Marta Grace 09/07/17 20:15> - Tobacco History Second Hand Smoke Exposure: Yes <Marta Grace 09/07/17 14:23> Tobacco Use In Past 30 Days: Yes <Marta Grace 09/07/17 14:23> Smoking Status: Current every day smoker <Marta Grace 09/07/17 14:23> Tobacco Type: Cigarettes <Marta Grace 09/07/17 14:23> - Alcohol History How Often Do You Have a Drink Containing Alcohol: Never <Marta Grace 14:23> - Substance Use History Substance History: Active Abuse <Marta Grace 09/07/17 14:23> - Substance Use Type Crack/Cocaine Status: Active <Marta Grace 09/07/17 14:23> Route Used: Inhalation <Marta Grace 09/07/17 14:23> Reason for Use: Get High <Marta Grace 09/07/17 14:23> Heroin Status: Active <Marta Grace 09/07/17 14:23> Route Used: Intravenously <Marta Grace 09/07/17 14:23> Reason for Use: Get High <Marta Grace 09/07/17 14:23> Methamphetamine Status: Active <Marta Grace 09/07/17 20:15> Route Used: Intravenously <Marta Grace 09/07/17 20:15> Frequency: STATES RECENTLY <Marta Grace 09/07/17 20:15> Reason for Use: Get High <Marta Grace 09/07/17 20:15> - Travel History Recent Travel in the [facility] Within the Last 8 Weeks: No <Marta Grace 09/07/17 14:23> Recent Travel Out of the Country Within the Last 8 Weeks: No <Marta Grace 09/07/17 14:23> - Immunization History Tetanus Immunization: >5 Years <Marta Grace 09/07/17 14:23> Hx Influenza Vaccine This Season: No <Marta Grace 09/07/17 14:23> Medications and Allergies Allergies Allergy/AdvReac Type Severity Reaction Status Date / Time vancomycin Allergy Severe Hives Verified 09/07/17 18:37 <Mali Womack - 09/07/17 21:30> Home Medications Medication Instructions Recorded Confirmed Type No Known Home Medications 09/07/17 09/07/17 History <Mali Womack - 09/07/17 21:30> Active Medications: Active Medications Acetaminophen (Tylenol) 650 mg PO Q4H PRN PRN Reason: Temp > 100.4 Last Admin: 09/07/17 17:39 Dose: 650 mg Heparin Sodium (Porcine) (Heparin Inj) 5,000 units SQ Q12H BRIE Last Admin: 09/07/17 17:39 Dose: 5,000 units Sodium Chloride (Ns Inj) 1,000 mls @ 100 mls/hr IV.CONT .Q10H BRIE Last Admin: 09/07/17 17:39 Dose: 100 mls/hr Piperacillin/Tazobactam/Dextrose (Zosyn 3.375 Gm Premix) 50 mls @ 100 mls/hr IV.SIG Q6H BRIE Clindamycin/Sodium Chloride (Cleocin 900 Mg/Ns Premix) 900 mg in 50 mls @ 100 mls/hr IV.SIG Q8H BRIE Lactobacillus Acidophilus (Lactinex) 1 tab PO TID BRIE Morphine Sulfate (Morphine Inj) 4 mg IV.PUSH Q3H PRN PRN Reason: PAIN 6-10;IF UNABLE TO TAKE PO Last Admin: 09/07/17 19:40 Dose: 4 mg Morphine Sulfate (Morphine Inj) 4 mg IV.PUSH Q3H PRN PRN Reason: BREAKTHROUGH PAIN Morphine Sulfate (Morphine Inj) 2 mg IV.PUSH Q3H PRN PRN Reason: PAIN 3-5; IF UABLE TO TAKE PO Naloxone HCl (Narcan Inj) 0.4 mg IV.PUSH UNSCH PRN PRN Reason: SEE LABEL COMMENTS Ondansetron HCl (Zofran Odt) 4 mg PO Q6H PRN PRN Reason: NAUSEA OR VOMITING Senna/Docusate Sodium (Miguelina-Colace) 1 tab PO BID BRIE Sodium Chloride (Ns Flush) 2 ml IV.FLUSH BID BRIE Sodium Chloride (Ns Flush) 2 ml IV.FLUSH UNSCH PRN PRN Reason: FLUSH AFTER USING IV ACCESS <Mali Womack - 09/07/17 21:30> Active Medications Sodium Chloride (Ns Flush) 2 ml IV.FLUSH BID BRIE Sodium Chloride (Ns Flush) 2 ml IV.FLUSH UNSCH PRN PRN Reason: FLUSH AFTER USING IV ACCESS <Marta Grace - 09/07/17 14:23> Exam Vital signs: Vital Signs 09/07/17 07:42 09/07/17 08:01 09/07/17 10:37 Temperature 99.0 F 98.1 F Pulse Rate 97 H 81 Respiratory Rate 18 17 Blood Pressure 106/63 114/69 Pulse Oximetry 100 99 99 09/07/17 10:38 09/07/17 11:36 09/07/17 13:55 Temperature 97.8 F 98.1 F Pulse Rate 83 86 Respiratory Rate 17 16 17 Blood Pressure 120/71 118/83 Pulse Oximetry 99 09/07/17 14:50 09/07/17 18:25 09/07/17 19:47 Temperature 101.4 F H 100.4 F H Pulse Rate 96 H 105 H 98 H Respiratory Rate 18 18 16 Blood Pressure 112/71 116/68 111/64 Pulse Oximetry 97 98 98 Intake & Output 09/07/17 09/07/17 09/08/17 06:59 18:59 06:59 Intake Total 100 / 100 Balance 100 / 100 Weight 56.8 kg Intake: IV 100 / 100 Cleocin 900 mg/NS Premix 900 mg 50 / 50 In 50 ml @ 100 mls/hr IV.SIG ONCE ONE Rx#:[id number] Zosyn 3.375 GM Premix 50 ML @ 50 / 50 100 mls/hr IV.SIG ONCE ONE Rx#: [id number] Other: # Voids 1 Weight On Admission 56.8 kg <Mali Womack - 09/07/17 21:30> Vital Signs 09/07/17 07:42 09/07/17 08:01 09/07/17 10:37 Temperature 99.0 F 98.1 F Pulse Rate 97 H 81 Respiratory Rate 18 17 Blood Pressure 106/63 114/69 Pulse Oximetry 100 99 99 09/07/17 10:38 09/07/17 11:36 Temperature 97.8 F Pulse Rate 83 Respiratory Rate 17 16 Blood Pressure 120/71 Pulse Oximetry 99 Intake & Output 09/06/17 09/07/17 09/07/17 18:59 06:59 18:59 Intake Total 100 / 100 Balance 100 / 100 Weight 49.895 kg Intake: IV 100 / 100 Cleocin 900 mg/NS Premix 900 mg 50 / 50 In 50 ml @ 100 mls/hr IV.SIG ONCE ONE Rx#:[id number] Zosyn 3.375 GM Premix 50 ML @ 50 / 50 100 mls/hr IV.SIG ONCE ONE Rx#: [id number] <LeslyMarta G - 09/07/17 14:23> Narrative: GENERAL: Thin white female asleep in bed, in no acute distress ( became tearful during examination) SKIN: Warm and dry. Left forearm: [id number] raised (3cm) indurated area with warmth and erythema. Exquisitely tender to palpation. Right arm: 2x2cm raised erythematous, indurated area lateral to antecubital fossa. Tender to palpation. HEAD: Atraumatic. Normocephalic. EYES: No scleral icterus. No injection or drainage. ENT: No nasal bleeding or discharge. NECK: Trachea midline. No JVD. CARDIOVASCULAR: Regular rate and rhythm. Prominent S1 heard best in mitral area. RESPIRATORY: No accessory muscle use. Clear to auscultation anteriorly. Breath sounds equal bilaterally. GASTROINTESTINAL: Abdomen soft, non-tender, nondistended. Hepatic and splenic margins not palpable. MUSCULOSKELETAL: Extremities without clubbing, cyanosis, or edema. No obvious deformities. NEUROLOGICAL: Awake and alert. No obvious cranial nerve deficits. Motor grossly within normal limits. Normal speech. <Marta Grace - 09/07/17 20:15> Results - Labs Result diagrams: 09/07/17 08:00 09/07/17 08:00 <Mali Womack - 09/07/17 21:30> Abnormal lab results 09/07/17 09/07/17 09/07/17 Range/Units 08:00 08:00 08:00 WBC 15.9 H (4.0-11.0) th/mm3 Plt Count 559 H (150-450) th/mm3 Neut % (Auto) 83.2 H (16.0-70.0) % Lymph % (Auto) 8.1 L (9.0-44.0) % Neut # (Auto) 13.3 H (1.8-7.7) th/mm3 [place] # (Auto) 1.2 H (0.0-0.9) th/mm3 Carbon Dioxide 32.1 H (21.0-32.0) meq/L AST 13 L (15-37) U/L Albumin 3.1 L (3.4-5.0) g/dL Urine Clarity (Clear) Urine Protein (Neg-Trace) mg/dL Urine Nitrate (Negative) Urine Urobilinogen (Less than 2) mg/dL Ur Leukocyte Esterase (Negative) Urine WBC (0-5) /hpf Amorphous Sediment (None) /hpf Urine Bacteria (None) /hpf Urine Opiates Screen (Neg) Ur Amphetamines Screen (Neg) Urine Cocaine Screen (Neg) 09/07/17 09/07/17 Range/Units 16:30 16:30 WBC (4.0-11.0) th/mm3 Plt Count (150-450) th/mm3 Neut % (Auto) (16.0-70.0) % Lymph % (Auto) (9.0-44.0) % Neut # (Auto) (1.8-7.7) th/mm3 [place] # (Auto) (0.0-0.9) th/mm3 Carbon Dioxide (21.0-32.0) meq/L AST (15-37) U/L Albumin (3.4-5.0) g/dL Urine Clarity Turbid H (Clear) Urine Protein 30 H (Neg-Trace) mg/dL Urine Nitrate Positive H (Negative) Urine Urobilinogen 2.0 H (Less than 2) mg/dL Ur Leukocyte Esterase Trace H (Negative) Urine WBC 46 H (0-5) /hpf Amorphous Sediment Rare H (None) /hpf Urine Bacteria Few H (None) /hpf Urine Opiates Screen Pos H (Neg) Ur Amphetamines Screen Pos H (Neg) Urine Cocaine Screen Pos H (Neg) Short CBC 09/07/17 Range/Units 08:00 WBC 15.9 H (4.0-11.0) th/mm3 Hgb 12.2 (11.6-15.3) gm/dL Hct 36.3 (35.0-46.0) % Plt Count 559 H (150-450) th/mm3 BMP 09/07/17 08:00 Sodium 138 Potassium 3.5 Chloride 101 Carbon Dioxide 32.1 H BUN 7 Creatinine 0.67 Calcium 8.8 Liver Function 09/07/17 Range/Units 08:00 Total Bilirubin 0.7 (0.2-1.0) mg/dL Direct Bilirubin 0.2 (0.0-0.2) mg/dL AST 13 L (15-37) U/L ALT 15 (10-53) U/L Alkaline Phosphatase 105 (45-117) U/L Albumin 3.1 L (3.4-5.0) g/dL Urine 09/07/17 Range/Units 16:30 Urine Color Yanna (Yellw/Straw) Urine Clarity Turbid H (Clear) Urine pH 7.0 (5.0-8.5) Ur Specific [place] 1.021 (1.002-1.035) Urine Protein 30 H (Neg-Trace) mg/dL Urine Glucose (UA) Negative (Negative) mg/dL <Katina Womacke - 09/07/17 21:30> Abnormal lab results 09/07/17 09/07/17 Range/Units 08:00 08:00 WBC 15.9 H (4.0-11.0) th/mm3 Plt Count 559 H (150-450) th/mm3 Neut % (Auto) 83.2 H (16.0-70.0) % Lymph % (Auto) 8.1 L (9.0-44.0) % Neut # (Auto) 13.3 H (1.8-7.7) th/mm3 [place] # (Auto) 1.2 H (0.0-0.9) th/mm3 Carbon Dioxide 32.1 H (21.0-32.0) meq/L Short CBC 09/07/17 Range/Units 08:00 WBC 15.9 H (4.0-11.0) th/mm3 Hgb 12.2 (11.6-15.3) gm/dL Hct 36.3 (35.0-46.0) % Plt Count 559 H (150-450) th/mm3 BMP 09/07/17 08:00 Sodium 138 Potassium 3.5 Chloride 101 Carbon Dioxide 32.1 H BUN 7 Creatinine 0.67 Calcium 8.8 <Marta Grace - 09/07/17 14:23> Caprini VTE Risk Assessment Caprini VTE Risk Assessment: Moderate/High Risk (score >= 2) <Marta Grace - 09/07/17 20:15> Caprini Risk Assessment Model: Point Value = 1 Point Value = 2 Point Value = 3 Point Value = 5 Age 41-60 Minor surgery BMI > 25 kg/m2 Swollen legs Varicose veins or History of unexplained or recurrent spontaneous Oral contraceptives or hormone replacement Sepsis (< 1 month) Serious lung disease, including pneumonia (< 1 month) Abnormal pulmonary function Acute myocardial infarction Congestive heart failure (< 1 month) History of inflammatory bowel disease Medical patient at bed rest Age 61-74 Arthroscopic surgery Major open surgery (> 45 min) Laparoscopic surgery (> 45 min) Malignancy Confined to bed (> 72 hours) Immobilizing plaster cast Central venous access Age >= 75 History of VTE Family history of VTE Factor V Leiden Prothrombin [id number] Lupus anticoagulant Anticardiolipin antibodies Elevated serum homocysteine Heparin-induced thrombocytopenia Other congenital or acquired thrombophilia Stroke (< 1 month) Elective arthroplasty Hip, pelvis, or leg fracture Acute spinal cord injury (< 1 month) <Mali Womack - 09/07/17 21:30> Point Value = 1 Point Value = 2 Point Value = 3 Point Value = 5 Age 41-60 Minor surgery BMI > 25 kg/m2 Swollen legs Varicose veins or History of unexplained or recurrent spontaneous Oral contraceptives or hormone replacement Sepsis (< 1 month) Serious lung disease, including pneumonia (< 1 month) Abnormal pulmonary function Acute myocardial infarction Congestive heart failure (< 1 month) History of inflammatory bowel disease Medical patient at bed rest Age 61-74 Arthroscopic surgery Major open surgery (> 45 min) Laparoscopic surgery (> 45 min) Malignancy Confined to bed (> 72 hours) Immobilizing plaster cast Central venous access Age >= 75 History of VTE Family history of VTE Factor V Leiden Prothrombin [id number] Lupus anticoagulant Anticardiolipin antibodies Elevated serum homocysteine Heparin-induced thrombocytopenia Other congenital or acquired thrombophilia Stroke (< 1 month) Elective arthroplasty Hip, pelvis, or leg fracture Acute spinal cord injury (< 1 month) <Marta Grace - 09/07/17 14:23> Prophylaxis Regimen: Total Risk Factor Score Risk Level Prophylaxis Regimen 0-1 Low Early ambulation 2 Moderate Order ONE of the following: *Sequential Compression Device (SCD) *Heparin 5000 units SQ BID 3-4 Higher Order ONE of the following medications: *Heparin 5000 units SQ TID *Enoxaparin/Lovenox 40 mg SQ daily (WT < 150 kg, CrCl > 30 mL/min) *Enoxaparin/Lovenox 30 mg SQ daily (WT < 150 kg, CrCl > 10-29 mL/min) *Enoxaparin/Lovenox 30 mg SQ BID (WT < 150 kg, CrCl > 30 mL/min) AND/OR *Sequential Compression Device (SCD) 5 or more Highest Order ONE of the following medications: *Heparin 5000 units SQ TID (Preferred with Epidurals) *Enoxaparin/Lovenox 40 mg SQ daily (WT < 150 kg, CrCl > 30 mL/min) *Enoxaparin/Lovenox 30 mg SQ daily (WT < 150 kg, CrCl > 10-29 mL/min) *Enoxaparin/Lovenox 30 mg SQ BID (WT < 150 kg, CrCl > 30 mL/min) AND *Sequential Compression Device (SCD) <Mali Womack - 09/07/17 21:30> Total Risk Factor Score Risk Level Prophylaxis Regimen 0-1 Low Early ambulation 2 Moderate Order ONE of the following: *Sequential Compression Device (SCD) *Heparin 5000 units SQ BID 3-4 Higher Order ONE of the following medications: *Heparin 5000 units SQ TID *Enoxaparin/Lovenox 40 mg SQ daily (WT < 150 kg, CrCl > 30 mL/min) *Enoxaparin/Lovenox 30 mg SQ daily (WT < 150 kg, CrCl > 10-29 mL/min) *Enoxaparin/Lovenox 30 mg SQ BID (WT < 150 kg, CrCl > 30 mL/min) AND/OR *Sequential Compression Device (SCD) 5 or more Highest Order ONE of the following medications: *Heparin 5000 units SQ TID (Preferred with Epidurals) *Enoxaparin/Lovenox 40 mg SQ daily (WT < 150 kg, CrCl > 30 mL/min) *Enoxaparin/Lovenox 30 mg SQ daily (WT < 150 kg, CrCl > 10-29 mL/min) *Enoxaparin/Lovenox 30 mg SQ BID (WT < 150 kg, CrCl > 30 mL/min) AND *Sequential Compression Device (SCD) <Marta Grace - 09/07/17 14:23> Assessment and Plan - Assessment (1) Cellulitis of left arm Code(s): L03.114 - Cellulitis of left upper limb Status: Acute (2) UTI (urinary tract infection) Code(s): N39.0 - Urinary tract infection, site not specified Status: Acute (3) IVDU (intravenous drug user) Code(s): F19.90 - Other psychoactive substance use, unspecified, uncomplicated Status: Chronic (4) Nutrition, metabolism, and development symptoms Code(s): R63.8 - Other symptoms and signs concerning food and fluid intake Status: Acute (5) DVT prophylaxis Status: Acute <Mali Womack - 09/07/17 21:30> (1) Cellulitis of left arm Code(s): L03.114 - Cellulitis of left upper limb Status: Acute Plan: 37-year-old female with history of IV drug use presenting with left arm pain with cellulitis and likely abscess. She had leukocytosis, neutrophil predominate, up to 15.9. Patient did not meet SIRS criteria on admission. However, she developed a fever and tachycardia later. Fluctuance was not noted on exam and imaging was not performed in ED. -MRI of left forearm ordered -When MRI has resulted, will use that to determine whether to consult surgery -N.p.o. -NS at 100 mLs/hour -Clindamycin 900 mg IV given in ED, will continue this every 8 hours -Zosyn 3.375 g IV given in ED, will continue this every 6 hours -Patient has a high tolerance to opioids, will give morphine as needed for pain and adjust as needed -Tylenol as needed for fever -Warm compresses (2) UTI (urinary tract infection) Code(s): N39.0 - Urinary tract infection, site not specified Status: Acute Plan: Patient reports painful urination and difficulty urinating. UA on admission is positive for nitrate, trace leukocyte esterase, few bacteria -culture pending -Patient already is on Zosyn as above, can act as a dual therapy (3) IVDU (intravenous drug user) Code(s): F19.90 - Other psychoactive substance use, unspecified, uncomplicated Status: Chronic Plan: Patient admits to using cocaine and heroin. Admitted to nursing staff that she was injecting meth as well. -UDS pending -Will monitor for signs of withdrawal (4) Nutrition, metabolism, and development symptoms Code(s): R63.8 - Other symptoms and signs concerning food and fluid intake Status: Acute Plan: Fluids: NS @ 100ml/hr Electrolytes: monitor and replete as needed Nutrition: N.p.o. GI Prophylaxis: None indicated at this time (5) DVT prophylaxis Status: Acute Plan: DVT Prophylaxis: Early ambulation. Heparin 5000U subQ q12hr <Marta Grace - 09/07/17 20:16> - Assessment and Plan 37-year-old white female with history of IVDU presenting with left arm pain. Diagnosed with cellulitis and likely abscess. MRI pending. Once resulted will determine whether we need to consult surgery. <Marta Grace - 09/07/17 20:15> Discussed Condition With: Dr. Womack, Dr. Treadwell, Dr. Rodriguez, ED physician <LeslyGustavo marshyahaira Hood - 09/07/17 20:15> Discharge Planning: Case management consulted. Patient is homeless and self- pay status. <Marta Grace Sana - 09/07/17 20:15> - Attending Attestation Patient seen and examined, and discussed with resident team this afternoon. I agree with assessment and management as documented and discussed with me. Pt admitted for left arm cellulitis and abscess, after injecting arm with heroin. Await MRI results to determine if surgery indicated - and if gen surg vs ortho vs hand surg. Additional diagnosis: Sepsis: Pt meets sepsis criteria based on fever, WBC count, and tachycardia. Antibiotics have been initiated. I certify that two-midnight stay is anticipated based on diagnoses and documentation provided. <Mali Womack - 09/07/17 21:28>
[2017-09-07] MEDS ORDERED: Heparin - SQ 10,000 UNITS/ML Vial SQ SCH (17:00)
[2017-09-07] MEDS: Acetaminophen 325 MG Tablet PO PRN (17:39)
[2017-09-07] MEDS: Sod Chloride 0.9% Inj 1,000 ML IV.CONT SCH (17:39)
[2017-09-07] MEDS ORDERED: Naloxone Inj 0.4 MG/ML Vial IV.PUSH PRN (17:49)
[2017-09-07] MEDS ORDERED: Morphine Inj 4 MG/ML Vial IV.PUSH PRN (17:49)
[2017-09-07 18:22] LABS: Amorphous Sediment,Urine Rare /hpf; Bacteria,Urine Few /hpf; Bilirubin,Urine Negative (Negative); Clarity,Urine Turbid (Clear); Color,Urine Amber (Yellw/Straw); Glucose,Urine (UA) Negative (Negative); Leukocyte Esterase,Urine Trace (Negative); Nitrite,Urine Positive (Negative); Specific Gravity,Urine 1.021 (1.002-1.035); Squamous Epithelial Cell,Urine 22 /hpf (0-5)
[2017-09-07 18:30] LABS: Albumin 3.1 g/dL (3.4-5.0)
[2017-09-07 18:32] LABS: Total Protein 7.4 g/dL (6.4-8.2)
[2017-09-07] MEDS: Morphine Inj 4 MG/ML Vial IV.PUSH PRN (19:40)
[2017-09-07 21:07] LABS: Amphetamine Screen,Urine Pos (Neg); Barbiturate Screen,Urine Neg (Neg); Cannabinoid Screen,Urine Neg (Neg); Cocaine Screen,Urine Pos (Neg)
[2017-09-07 21:19] LABS: Opiate Screen,Urine Pos (Neg)
[2017-09-07] MEDS: Senna/Docusate Sodium 8.6/50 MG Tablet PO SCH (21:53)
[2017-09-07] MEDS: Piperacil/Tazo 3.375 GM Premix 50 ML IV.SIG SCH (21:53)
[2017-09-07] MEDS: Clindamycin 900 mg/NS Premix 900 MG/50 ML PIGGYBACK IV.SIG SCH (21:54)
[2017-09-07] MEDS: Lactobacillus Acidophilus/L. Spores Tablet PO SCH (22:00)
--- NOTE | 2017-09-07 23:26 | MR ---
EXAM DATE: 09/07/2017 8:31 PM EDT AGE/SEX: 37 years / Female INDICATIONS: Evaluate for abscess CLINICAL DATA: This is the patient's initial encounter. Patient reports that signs and symptoms have been present for 1 day and indicates a pain score of 5/10. MEDICAL/SURGICAL HISTORY: . IVDU. . Sinus surgery. COMPARISON: No prior exams available for comparison. TECHNIQUE: Multiplanar, multisequence MRI examination was performed without and with ml Gadavist (ga dobutrol) contrast as single exam dose. FINDINGS: There is an irregular margin fluid collection in the subcutaneous soft tissues medial to the proximal ulna which demonstrates irregular peripheral enhancement and measures 9.1 cm in length and 3.1 cm in width, characteristic of abscess. This surrounds the medial aspect of the proximal ulna, but no sign al abnormality within the marrow of the ulna. There is some signal abnormality and abnormal enhanceme nt within the adjacent muscles dorsally with the vascular enhancement measuring 1.5 x 1.0 cm. There i s diffuse skin thickening about the proximal forearm.. CONCLUSION: 1. Greater than 9 cm subcutaneous abscess about the medial aspect of the proximal forearm surroundin g the ulna without signal abnormality within the marrow of the ulna. There is evidence of some involv ement of the adjacent dorsal musculature. Electronically signed by: Onel Hui MD 09/07/2017 11:24 PM EDT
[2017-09-08] MEDS: Piperacil/Tazo 3.375 GM Premix 50 ML IV.SIG SCH ×4 (02:25→20:39)
[2017-09-08] MEDS: Morphine Inj 4 MG/ML Vial IV.PUSH PRN ×6 (04:05→20:36)
[2017-09-08] MEDS: Clindamycin 900 mg/NS Premix 900 MG/50 ML PIGGYBACK IV.SIG SCH ×3 (04:08→20:41)
[2017-09-08] MEDS: Sod Chloride 0.9% Inj 1,000 ML IV.CONT SCH ×2 (04:09→14:14)
[2017-09-08 05:54] LABS: INR 1.1 Ratio; Prothrombin Time 11.3 sec (9.8-11.6)
[2017-09-08 05:59] LABS: Baso % (Auto) 0.2 % (0.0-2.0); Eos # (Auto) 0.1 th/mm3 (0.0-0.4); Eos % (Auto) 0.8 % (0.0-4.0); Hematocrit 30.9 % (35.0-46.0); Hemoglobin 10.5 gm/dL (11.6-15.3); Lymph # (Auto) 1.5 th/mm3 (1.0-4.8); Lymph % (Auto) 8.9 % (9.0-44.0); Mean Corpuscular HGB Conc 33.9 % (32.0-36.0); Mean Corpuscular Hemoglobin 30.1 pg (27.0-34.0); Mean Corpuscular Volume 88.6 fL (80.0-100.0); Mean Platelet Volume 7.4 fL (7.0-11.0); Mono # (Auto) 1.3 th/mm3 (0.0-0.9); Mono % (Auto) 7.6 % (0.0-8.0); Neut # (Auto) 13.7 th/mm3 (1.8-7.7); Neut % (Auto) 82.5 % (16.0-70.0); Platelet Count 553 th/mm3 (150-450); Red Blood Count 3.48 mil/mm3 (4.00-5.30); White Blood Count 16.6 th/mm3 (4.0-11.0)
[2017-09-08 06:19] LABS: Creatine Kinase 26 U/L (26-192)
[2017-09-08 06:20] LABS: Alanine Aminotransferase 11 U/L (10-53); Albumin 2.4 g/dL (3.4-5.0); Alkaline Phosphatase 117 U/L (45-117); Anion Gap 11 meq/L (5-15); Aspartate Aminotransferase 12 U/L (15-37); Blood Urea Nitrogen 6 mg/dL (7-18); Calcium 8.1 mg/dL (8.5-10.1); Carbon Dioxide 23.7 meq/L (21.0-32.0); Chloride 102 meq/L (98-107); Glomerular Filtration Rate Greater Than 89 mL/min (>89); Glucose,Random 76 mg/dL (74-106); Potassium 3.2 meq/L (3.5-5.1); Sodium 137 meq/L (136-145); Total Protein 6.4 g/dL (6.4-8.2)
[2017-09-08] MEDS: Lactobacillus Acidophilus/L. Spores Tablet PO SCH ×3 (08:23→17:24)
[2017-09-08] MEDS: Senna/Docusate Sodium 8.6/50 MG Tablet PO SCH ×2 (08:23→20:40)
[2017-09-08] MEDS ORDERED: Lidocaine 1% Inj 50 ML Vial INFILTRATN ONE (10:30)
[2017-09-08] MEDS ORDERED: Lidocaine PF 1% Inj 30 ML Vial INFILTRATN ONE (11:00)
--- NOTE | 2017-09-08 11:32 | P.PCN ---
<Marta Grace - Last Filed: 09/08/17 18:38> Date of procedure: 09/08/17 Pre-op diagnosis: left forearm abscess Post-op diagnosis: same Procedure: Incision and Drainage, wound culture Was given Ativan 1 mg and morphine 4 mg IV 45 minutes before the procedure The procedure was explained and consents were signed Procedure - Incision and Drainage Resident - Marta Grace MD Attending - Mali Womack MD Time Out 1100 Patient positioned appropriately, 5 cc lidocaine without epinephrine was used as a local anesthetic. #11 blade scalpel used for single incision. Blunt dissection of loculated adhesions was performed. Copius drainage of pus of about 200ml (culture obtained). Wound packed with gauze. Procedure tolerated without complications. Wound dressed with sterile 4x4 guaze and paper tape. Anesthesia: local Surgeon: Marta Grace [employer] Suspension Coordinator: Mali Womack Estimated blood loss (mL): 50 (Estimated 200ml of pus drained) Pathology: other (wound culture sent) Condition: stable Disposition: no change <Mali Womack - Last Filed: 09/08/17 20:36> Procedure: Attending note: I was present for entire procedure. MALI WOMACK MD
--- NOTE | 2017-09-08 12:16 | P.PNFP ---
Subjective Interval history: Patient seen and examined this morning. She states that she had fevers and chills overnight along with significant pain in her left arm and left shoulder. No chest pain, no shortness of breath, no abdominal pain, she was able to use the bedside commode. She is still n.p.o. and would like to eat. She consented for us to do a bedside I&D. See previous procedure note. <LeslyMarta G - 09/08/17 18:33> Results - Labs Result diagrams: 09/08/17 05:22 09/08/17 05:22 <Katina Womacke - 09/08/17 20:35> Abnormal lab results 09/07/17 09/08/17 09/08/17 Range/Units 16:30 05:22 05:22 WBC 16.6 H (4.0-11.0) th/mm3 RBC 3.48 L (4.00-5.30) mil/mm3 Hgb 10.5 L (11.6-15.3) gm/dL Hct 30.9 L (35.0-46.0) % Plt Count 553 H (150-450) th/mm3 Neut % (Auto) 82.5 H (16.0-70.0) % Lymph % (Auto) 8.9 L (9.0-44.0) % Neut # (Auto) 13.7 H (1.8-7.7) th/mm3 [place] # (Auto) 1.3 H (0.0-0.9) th/mm3 Potassium (3.5-5.1) meq/L BUN (7-18) mg/dL Calcium (8.5-10.1) mg/dL AST (15-37) U/L Troponin I Less than 0.02 L (0.02-0.05) ng/mL Albumin (3.4-5.0) g/dL Urine Opiates Screen Pos H (Neg) Ur Amphetamines Screen Pos H (Neg) Urine Cocaine Screen Pos H (Neg) 09/08/17 Range/Units 05:22 WBC (4.0-11.0) th/mm3 RBC (4.00-5.30) mil/mm3 Hgb (11.6-15.3) gm/dL Hct (35.0-46.0) % Plt Count (150-450) th/mm3 Neut % (Auto) (16.0-70.0) % Lymph % (Auto) (9.0-44.0) % Neut # (Auto) (1.8-7.7) th/mm3 [place] # (Auto) (0.0-0.9) th/mm3 Potassium 3.2 L (3.5-5.1) meq/L BUN 6 L (7-18) mg/dL Calcium 8.1 L (8.5-10.1) mg/dL AST 12 L (15-37) U/L Troponin I (0.02-0.05) ng/mL Albumin 2.4 L D (3.4-5.0) g/dL Urine Opiates Screen (Neg) Ur Amphetamines Screen (Neg) Urine Cocaine Screen (Neg) Short CBC 09/08/17 Range/Units 05:22 WBC 16.6 H (4.0-11.0) th/mm3 Hgb 10.5 L (11.6-15.3) gm/dL Hct 30.9 L (35.0-46.0) % Plt Count 553 H (150-450) th/mm3 BMP 09/08/17 05:22 Sodium 137 Potassium 3.2 L Chloride 102 Carbon Dioxide 23.7 BUN 6 L Creatinine 0.64 Calcium 8.1 L Cardiac Enzymes 09/08/17 Range/Units 05:22 Total Creatine Kinase 26 (26-192) U/L Troponin I Less than 0.02 L (0.02-0.05) ng/mL Liver Function 09/08/17 Range/Units 05:22 Total Bilirubin 0.7 (0.2-1.0) mg/dL AST 12 L (15-37) U/L ALT 11 (10-53) U/L Alkaline Phosphatase 117 (45-117) U/L Albumin 2.4 L D (3.4-5.0) g/dL <Mali Womack - 09/08/17 20:35> Abnormal lab results 09/07/17 09/07/17 09/07/17 Range/Units 08:00 16:30 16:30 WBC (4.0-11.0) th/mm3 RBC (4.00-5.30) mil/mm3 Hgb (11.6-15.3) gm/dL Hct (35.0-46.0) % Plt Count (150-450) th/mm3 Neut % (Auto) (16.0-70.0) % Lymph % (Auto) (9.0-44.0) % Neut # (Auto) (1.8-7.7) th/mm3 [place] # (Auto) (0.0-0.9) th/mm3 Potassium (3.5-5.1) meq/L BUN (7-18) mg/dL Calcium (8.5-10.1) mg/dL AST 13 L (15-37) U/L Troponin I (0.02-0.05) ng/mL Albumin 3.1 L (3.4-5.0) g/dL Urine Clarity Turbid H (Clear) Urine Protein 30 H (Neg-Trace) mg/dL Urine Nitrate Positive H (Negative) Urine Urobilinogen 2.0 H (Less than 2) mg/dL Ur Leukocyte Esterase Trace H (Negative) Urine WBC 46 H (0-5) /hpf Amorphous Sediment Rare H (None) /hpf Urine Bacteria Few H (None) /hpf Urine Opiates Screen Pos H (Neg) Ur Amphetamines Screen Pos H (Neg) Urine Cocaine Screen Pos H (Neg) 09/08/17 09/08/17 09/08/17 Range/Units 05:22 05:22 05:22 WBC 16.6 H (4.0-11.0) th/mm3 RBC 3.48 L (4.00-5.30) mil/mm3 Hgb 10.5 L (11.6-15.3) gm/dL Hct 30.9 L (35.0-46.0) % Plt Count 553 H (150-450) th/mm3 Neut % (Auto) 82.5 H (16.0-70.0) % Lymph % (Auto) 8.9 L (9.0-44.0) % Neut # (Auto) 13.7 H (1.8-7.7) th/mm3 [place] # (Auto) 1.3 H (0.0-0.9) th/mm3 Potassium 3.2 L (3.5-5.1) meq/L BUN 6 L (7-18) mg/dL Calcium 8.1 L (8.5-10.1) mg/dL AST 12 L (15-37) U/L Troponin I Less than 0.02 L (0.02-0.05) ng/mL Albumin 2.4 L D (3.4-5.0) g/dL Urine Clarity (Clear) Urine Protein (Neg-Trace) mg/dL Urine Nitrate (Negative) Urine Urobilinogen (Less than 2) mg/dL Ur Leukocyte Esterase (Negative) Urine WBC (0-5) /hpf Amorphous Sediment (None) /hpf Urine Bacteria (None) /hpf Urine Opiates Screen (Neg) Ur Amphetamines Screen (Neg) Urine Cocaine Screen (Neg) Short CBC 09/08/17 Range/Units 05:22 WBC 16.6 H (4.0-11.0) th/mm3 Hgb 10.5 L (11.6-15.3) gm/dL Hct 30.9 L (35.0-46.0) % Plt Count 553 H (150-450) th/mm3 BMP 09/08/17 05:22 Sodium 137 Potassium 3.2 L Chloride 102 Carbon Dioxide 23.7 BUN 6 L Creatinine 0.64 Calcium 8.1 L Cardiac Enzymes 09/08/17 Range/Units 05:22 Total Creatine Kinase 26 (26-192) U/L Troponin I Less than 0.02 L (0.02-0.05) ng/mL Liver Function 09/07/17 09/08/17 Range/Units 08:00 05:22 Total Bilirubin 0.7 0.7 (0.2-1.0) mg/dL Direct Bilirubin 0.2 (0.0-0.2) mg/dL AST 13 L 12 L (15-37) U/L ALT 15 11 (10-53) U/L Alkaline Phosphatase 105 117 (45-117) U/L Albumin 3.1 L 2.4 L D (3.4-5.0) g/dL Urine 09/07/17 Range/Units 16:30 Urine Color Y[place] (Yellw/Straw) Urine Clarity Turbid H (Clear) Urine pH 7.0 (5.0-8.5) Ur Specific [place] 1.021 (1.002-1.035) Urine Protein 30 H (Neg-Trace) mg/dL Urine Glucose (UA) Negative (Negative) mg/dL <[place]a G - 09/08/17 12:16> - Imaging Impressions Forearm MRI 09/07/17 00:00 CONCLUSION: 1. Greater than 9 cm subcutaneous abscess about the medial aspect of the proximal forearm surrounding the ulna without signal abnormality within the marrow of the ulna. There is evidence of some involvement of the adjacent dorsal musculature. <Mali Womack - 09/08/17 20:35> Impressions Forearm MRI 09/07/17 00:00 CONCLUSION: 1. Greater than 9 cm subcutaneous abscess about the medial aspect of the proximal forearm surrounding the ulna without signal abnormality within the marrow of the ulna. There is evidence of some involvement of the adjacent dorsal musculature. <Marta Grace - 09/08/17 12:16> Physical Exam Vital signs: Vital Signs 09/07/17 23:21 09/08/17 00:53 09/08/17 03:42 Temperature 98.9 F Pulse Rate 83 94 H Respiratory Rate 17 18 17 Blood Pressure 117/74 109/62 Pulse Oximetry 100 99 09/08/17 08:00 09/08/17 09:32 09/08/17 10:09 Temperature 99.1 F Pulse Rate 86 82 Respiratory Rate 16 16 18 Blood Pressure 103/62 104/66 Pulse Oximetry 99 99 09/08/17 11:55 09/08/17 12:46 09/08/17 16:00 Temperature 98.7 F 100.0 F H Pulse Rate 90 105 H Respiratory Rate 16 16 18 Blood Pressure 117/73 119/66 Pulse Oximetry 97 100 09/08/17 19:52 09/08/17 20:11 Temperature 100.4 F H Pulse Rate 109 H Respiratory Rate 18 18 Blood Pressure 100/58 L Pulse Oximetry 98 Intake & Output 09/08/17 09/08/17 09/09/17 06:59 18:59 06:59 Intake Total 1200 / 1200 1150 / 1150 Balance 1200 / 1200 1150 / 1150 Intake: IV 1200 / 1200 1150 / 1150 NS Inj 1,000 ML @ 100 mls/hr IV 1000 / 1000 1000 / 1000 .CONT .Q10H BRIE Rx#:[id number] Cleocin 900 mg/NS Premix 900 mg 100 / 100 50 / 50 In 50 ml @ 100 mls/hr IV.SIG Q8H BRIE Rx#:[id number] Zosyn 3.375 GM Premix 50 ML @ 100 / 100 100 / 100 100 mls/hr IV.SIG Q6H BRIE Rx#: [id number] Other: # Voids 3 # Bowel Movements 0 <Mali Womack - 09/08/17 20:35> Vital Signs 09/07/17 13:55 09/07/17 14:50 09/07/17 18:25 Temperature 98.1 F 101.4 F H 100.4 F H Pulse Rate 86 96 H 105 H Respiratory Rate 17 18 18 Blood Pressure 118/83 112/71 116/68 Pulse Oximetry 97 98 09/07/17 19:47 09/07/17 23:21 09/08/17 00:53 Temperature Pulse Rate 98 H 83 Respiratory Rate 16 17 18 Blood Pressure 111/64 117/74 Pulse Oximetry 98 100 09/08/17 03:42 09/08/17 08:00 09/08/17 09:32 Temperature 98.9 F 99.1 F Pulse Rate 94 H 86 Respiratory Rate 17 16 16 Blood Pressure 109/62 103/62 Pulse Oximetry 99 99 09/08/17 10:09 09/08/17 11:55 Temperature 98.7 F Pulse Rate 82 90 Respiratory Rate 18 16 Blood Pressure 104/66 117/73 Pulse Oximetry 99 97 Intake & Output 09/07/17 09/08/17 09/08/17 18:59 06:59 18:59 Intake Total 100 / 100 1200 / 1200 50 / 50 Balance 100 / 100 1200 / 1200 50 / 50 Weight 56.8 kg Intake: IV 100 / 100 1200 / 1200 50 / 50 NS Inj 1,000 ML @ 100 mls/hr IV 1000 / 1000 .CONT .Q10H BRIE Rx#:[id number] Cleocin 900 mg/NS Premix 900 mg 50 / 50 100 / 100 In 50 ml @ 100 mls/hr IV.SIG Q8H BRIE Rx#:[id number] Zosyn 3.375 GM Premix 50 ML @ 50 / 50 100 / 100 50 / 50 100 mls/hr IV.SIG Q6H BRIE Rx#: [id number] Other: # Voids 1 Weight On Admission 56.8 kg <Marta Grace Sana - 09/08/17 12:16> Narrative: GENERAL: Thin white female asleep in bed, in no acute distress ( became tearful during examination) SKIN: Warm and dry. Left forearm: [id number] raised (3cm) indurated area with warmth and erythema. The more centralized area was fluctuant and showed areas with pus formation. Exquisitely tender to palpation. Right arm: 2x2cm raised erythematous, indurated area lateral to antecubital fossa. Tender to palpation. HEAD: Atraumatic. Normocephalic. EYES: No scleral icterus. No injection or drainage. ENT: No nasal bleeding or discharge. NECK: Trachea midline. No JVD. CARDIOVASCULAR: Regular rate and rhythm. Prominent S1 heard best in mitral area. RESPIRATORY: No accessory muscle use. Clear to auscultation anteriorly. Breath sounds equal bilaterally. GASTROINTESTINAL: Abdomen soft, non-tender, nondistended. Hepatic and splenic margins not palpable. MUSCULOSKELETAL: Extremities without clubbing, cyanosis, or edema. No obvious deformities. NEUROLOGICAL: Awake and alert. No obvious cranial nerve deficits. Motor grossly within normal limits. Normal speech. <Marta Grace - 09/08/17 18:10> Assessment and Plan - Assessment (1) Cellulitis of left arm Code(s): L03.114 - Cellulitis of left upper limb Status: Acute (2) UTI (urinary tract infection) Code(s): N39.0 - Urinary tract infection, site not specified Status: Acute (3) IVDU (intravenous drug user) Code(s): F19.90 - Other psychoactive substance use, unspecified, uncomplicated Status: Chronic (4) Nutrition, metabolism, and development symptoms Code(s): R63.8 - Other symptoms and signs concerning food and fluid intake Status: Acute (5) DVT prophylaxis Status: Acute <Mali Womack - 09/08/17 20:35> (1) Cellulitis of left arm Code(s): L03.114 - Cellulitis of left upper limb Status: Acute Plan: 37-year-old female with history of IV drug use presenting with left arm pain with cellulitis and likely abscess. She had leukocytosis, neutrophil predominate, up to 15.9. Patient did not meet SIRS criteria on admission. However, she developed a fever and tachycardia later. Fluctuance was not noted on exam and imaging was not performed in ED. MRI of left forearm showed a greater than 9 cm subcutaneous abscess about the medial aspect of the proximal forearm from surrounding the ulna without signal abnormality within the marrow of the ulna. There is evidence of some involvement of the adjacent dorsal musculature. -status post bedside I&D on 09/08 -NS at 100 mLs/hour -Clindamycin 900 mg IV every 8 hours (09/07- ) -Zosyn 3.375 g IV every 6 hours (09/07- ) -Patient has a high tolerance to opioids, will DC morphine pain scale post I&D and give Percocets with morphine as needed for breakthrough, can adjust as needed -Tylenol as needed for fever (2) UTI (urinary tract infection) Code(s): N39.0 - Urinary tract infection, site not specified Status: Acute Plan: Patient reports painful urination and difficulty urinating. UA on admission is positive for nitrate, trace leukocyte esterase, few bacteria -culture shows immature growth, requires reintubation -Patient already is on Zosyn as above, can act as a dual therapy (3) IVDU (intravenous drug user) Code(s): F19.90 - Other psychoactive substance use, unspecified, uncomplicated Status: Chronic Plan: Patient admits to using cocaine and heroin. Admitted to nursing staff that she was injecting meth as well. -UDS positive for opiates, amphetamines, cocaine -Will monitor for signs of withdrawal (4) Nutrition, metabolism, and development symptoms Code(s): R63.8 - Other symptoms and signs concerning food and fluid intake Status: Acute Plan: Fluids: NS @ 100ml/hr Electrolytes: monitor and replete as needed Nutrition: Regular diet GI Prophylaxis: None indicated at this time (5) DVT prophylaxis Status: Acute Plan: DVT Prophylaxis: Early ambulation. SCDs <Marta Grace - 09/08/17 18:22> - Assessment and Plan 37-year-old white female with history of IVDU presenting with left arm pain. Diagnosed with cellulitis and likely abscess. MRI shows a large abscess. Patient status post bedside I&D on 09/08 <Marta Grace - 09/08/17 18:33> Discussed Condition With: Dr. Womack <Marta Grace - 09/08/17 18:33> Discharge Planning: Case management consulted. Patient is homeless and self- pay status. <Marta Grace 09/08/17 18:33> - Attending Attestation Patient seen and examined, discussed with resident team. I agree with assessment and management as documented and discussed with me. I&D performed today. Pt continues to complain of pain at left forearm, at site of abscess. Continue IV antibiotics. <Mali Womack - 09/08/17 20:35>
--- NOTE | 2017-09-08 15:04 | ECHRPT ---
Indication: SEPSIS POSS. ENDOCARDITIS CONCLUSIONS The left ventricular systolic function is normal with an estimated ejection fraction in the range of 60-65%. Normal left ventricular size. Wall thickness is normal. No regional wall motion abnormalities are present. BP: / HR: Rhythm: Sinus MEASUREMENTS (Male / Female) Normal Values Technical Quality:Fair 2D ECHO LV Diastolic Diameter PLAX 3.5 cm 4.2 - 5.9 / 3.9 - 5.3 cm LV Systolic Diameter PLAX 2.5 cm IVS Diastolic Thickness 0.9 cm 0.6 - 1.0 / 0.6 - 0.9 cm LVPW Diastolic Thickness 0.9 cm 0.6 - 1.0 / 0.6 - 0.9 cm LV Relative Wall Thickness 0.5 RV Internal Dim ED PLAX 2.3 cm LVOT Diameter 1.9 cm LA Systolic Diameter LX 1.8 cm 3.0 - 4.0 / 2.7 - 3.8 cm M-MODE Aortic Root Diameter MM 1.8 cm AV Cusp Separation MM 1.7 cm DOPPLER PV Peak Velocity 102.0 cm/s PV Peak Gradient 4.2 mmHg FINDINGS LEFT VENTRICLE The left ventricular systolic function is normal with an estimated ejection fraction in the range of 60-65%. Normal left ventricular size. Wall thickness is normal. No regional wall motion abnormalities are present. Clay Bee MD, FACC, [facility] [place] (Electronically Signed) Final Date:08 September 2017 15:03
[2017-09-08] MEDS ORDERED: Diphtheria/Tetanus/Pertussis Vaccine Inj 0.5 ML Syringe IM ONE (15:54)
[2017-09-08] MEDS: Acetaminophen 325 MG Tablet PO PRN (20:40)
[2017-09-09] MEDS: Piperacil/Tazo 3.375 GM Premix 50 ML IV.SIG SCH ×4 (04:40→23:22)
[2017-09-09] MEDS: Sod Chloride 0.9% Inj 1,000 ML IV.CONT SCH ×2 (05:06→11:29)
[2017-09-09] MEDS: Clindamycin 900 mg/NS Premix 900 MG/50 ML PIGGYBACK IV.SIG SCH ×3 (05:40→23:23)
[2017-09-09] MEDS: Senna/Docusate Sodium 8.6/50 MG Tablet PO SCH ×2 (08:43→23:33)
[2017-09-09] MEDS: oxyCODONE/Acetaminophen 10/325 Tablet PO PRN ×3 (08:43→23:30)
[2017-09-09] MEDS: Lactobacillus Acidophilus/L. Spores Tablet PO SCH ×3 (08:43→23:32)
--- NOTE | 2017-09-09 11:59 | P.PNFP ---
Subjective Interval history: Patient seen and examined this morning. She states that her pain medications are not working and she feeling pain in her left shoulder now. She is also feeling feverish. She states that she ate a little bit of her food. She has had 2 loose stools this morning. No nausea or vomiting. No chest pain or shortness of breath. <Marta Grace Sana - 09/09/17 15:00> Results - Labs Result diagrams: 09/09/17 12:22 09/09/17 12:22 <Katina Womacke - 09/09/17 20:54> Abnormal lab results 09/09/17 09/09/17 Range/Units 12:22 12:22 WBC 11.2 H (4.0-11.0) th/mm3 RBC 3.35 L (4.00-5.30) mil/mm3 Hgb 9.7 L (11.6-15.3) gm/dL Hct 29.8 L (35.0-46.0) % Plt Count 550 H (150-450) th/mm3 Neut % (Auto) 80.7 H (16.0-70.0) % Neut # (Auto) 9.1 H (1.8-7.7) th/mm3 Random Glucose 114 H (74-106) mg/dL Calcium 8.4 L (8.5-10.1) mg/dL AST 12 L (15-37) U/L Total Protein 6.3 L (6.4-8.2) g/dL Albumin 2.2 L (3.4-5.0) g/dL Short CBC 09/09/17 Range/Units 12:22 WBC 11.2 H (4.0-11.0) th/mm3 Hgb 9.7 L (11.6-15.3) gm/dL Hct 29.8 L (35.0-46.0) % Plt Count 550 H (150-450) th/mm3 BMP 09/09/17 12:22 Sodium 141 Potassium 3.6 Chloride 105 Carbon Dioxide 24.7 BUN 7 Creatinine 0.57 Calcium 8.4 L Liver Function 09/09/17 Range/Units 12:22 Total Bilirubin 0.2 (0.2-1.0) mg/dL AST 12 L (15-37) U/L ALT 12 (10-53) U/L Alkaline Phosphatase 101 (45-117) U/L Albumin 2.2 L (3.4-5.0) g/dL <Mali Womack - 09/09/17 20:54> Physical Exam Vital signs: Vital Signs 09/08/17 23:35 09/09/17 04:00 09/09/17 08:00 Temperature 98.5 F 98.4 F 98.5 F Pulse Rate 91 H 78 82 Respiratory Rate 16 16 18 Blood Pressure 98/53 L 101/59 L 120/73 Pulse Oximetry 97 98 98 09/09/17 12:00 09/09/17 16:00 09/09/17 18:00 Temperature 98.3 F 97.8 F 97.2 F L Pulse Rate 77 70 64 Respiratory Rate 16 16 14 Blood Pressure 94/49 L 94/59 L Pulse Oximetry 99 100 Intake & Output 09/09/17 09/09/17 09/10/17 06:59 18:59 06:59 Intake Total 1150 / 1150 2260 / 2260 Balance 1150 / 1150 2260 / 2260 Intake: IV 1150 / 1150 1200 / 1200 NS Inj 1,000 ML @ 100 mls/hr IV 1000 / 1000 1000 / 1000 .CONT .Q10H BRIE Rx#:[id number] Cleocin 900 mg/NS Premix 900 mg 50 / 50 100 / 100 In 50 ml @ 100 mls/hr IV.SIG Q8H BRIE Rx#:[id number] Zosyn 3.375 GM Premix 50 ML @ 100 / 100 100 / 100 100 mls/hr IV.SIG Q6H BRIE Rx#: [id number] Oral 1060 / 1060 Other: # Voids 4 # Bowel Movements 1 <Mali Womack - 09/09/17 20:54> Vital Signs 09/08/17 12:46 09/08/17 16:00 09/08/17 19:52 Temperature 100.0 F H 100.4 F H Pulse Rate 105 H 109 H Respiratory Rate 16 18 18 Blood Pressure 119/66 100/58 L Pulse Oximetry 100 98 09/08/17 20:11 09/08/17 23:35 09/09/17 04:00 Temperature 98.5 F 98.4 F Pulse Rate 91 H 78 Respiratory Rate 18 16 16 Blood Pressure 98/53 L 101/59 L Pulse Oximetry 97 98 09/09/17 08:00 Temperature 98.5 F Pulse Rate 82 Respiratory Rate 18 Blood Pressure 120/73 Pulse Oximetry 98 Intake & Output 09/08/17 09/09/17 09/09/17 18:59 06:59 18:59 Intake Total 1150 / 1150 1150 / 1150 50 / 50 Balance 1150 / 1150 1150 / 1150 50 / 50 Intake: IV 1150 / 1150 1150 / 1150 50 / 50 NS Inj 1,000 ML @ 100 mls/hr IV 1000 / 1000 1000 / 1000 .CONT .Q10H BRIE Rx#:[id number] Cleocin 900 mg/NS Premix 900 mg 50 / 50 50 / 50 50 / 50 In 50 ml @ 100 mls/hr IV.SIG Q8H BRIE Rx#:[id number] Zosyn 3.375 GM Premix 50 ML @ 100 / 100 100 / 100 100 mls/hr IV.SIG Q6H BRIE Rx#: [id number] Other: # Voids 3 # Bowel Movements 0 <Marta Grace - 09/09/17 11:59> Narrative: GENERAL: Thin white female asleep in bed, in no acute distress ( became tearful during examination) SKIN: Warm and dry. Left forearm: [id number] area with edema, less erythema than yesterday. Incision site with packing that is draining blood mixed with pus. 2x3cm ecchymosis inferior to incision Exquisitely tender to palpation. Right arm: 3x2cm raised erythematous, indurated area lateral to antecubital fossa. Has expanded since yesterday. Tender to palpation. HEAD: Atraumatic. Normocephalic. EYES: No scleral icterus. No injection or drainage. ENT: No nasal bleeding or discharge. NECK: Trachea midline. No JVD. CARDIOVASCULAR: Regular rate and rhythm. Prominent S1 heard best in mitral area. RESPIRATORY: No accessory muscle use. Clear to auscultation anteriorly. Breath sounds equal bilaterally. GASTROINTESTINAL: Abdomen soft, non-tender, nondistended. Hepatic and splenic margins not palpable. MUSCULOSKELETAL: Extremities without clubbing, cyanosis, or edema. No obvious deformities. NEUROLOGICAL: Awake and alert. No obvious cranial nerve deficits. Motor grossly within normal limits. Normal speech. <Marta Grace - 09/09/17 15:00> Assessment and Plan - Assessment (1) Cellulitis of left arm Code(s): L03.114 - Cellulitis of left upper limb Status: Acute (2) UTI (urinary tract infection) Code(s): N39.0 - Urinary tract infection, site not specified Status: Acute (3) IVDU (intravenous drug user) Code(s): F19.90 - Other psychoactive substance use, unspecified, uncomplicated Status: Chronic (4) Nutrition, metabolism, and development symptoms Code(s): R63.8 - Other symptoms and signs concerning food and fluid intake Status: Acute (5) DVT prophylaxis Status: Acute <Mali Womack - 09/09/17 20:54> (1) Cellulitis of left arm Code(s): L03.114 - Cellulitis of left upper limb Status: Acute Plan: 37-year-old female with history of IV drug use presenting with left arm pain with cellulitis and likely abscess. She had leukocytosis, neutrophil predominate, up to 15.9. Patient did not meet SIRS criteria on admission. However, she developed a fever and tachycardia later. Fluctuance was not noted on exam and imaging was not performed in ED. Patient is status post bedside I&D on 09/08 with about 200ml of pus drained. 09/09 Leukocytosis is decreasing, now at 11.2. No fevers overnight. MRI of left forearm showed a greater than 9 cm subcutaneous abscess about the medial aspect of the proximal forearm from surrounding the ulna without signal abnormality within the marrow of the ulna. There is evidence of some involvement of the adjacent dorsal musculature. -Bld cx NGTD (note that it was drawn after patient had received abx in ED) -Clindamycin 900 mg IV every 8 hours (09/07- ) -Zosyn 3.375 g IV every 6 hours (09/07- ) -Patient has a high tolerance to opioids, will DC morphine pain scale post I&D and give Percocets with morphine as needed for breakthrough, can adjust as needed -Tylenol as needed for fever (2) UTI (urinary tract infection) Code(s): N39.0 - Urinary tract infection, site not specified Status: Acute Plan: Patient reports painful urination and difficulty urinating. UA on admission is positive for nitrate, trace leukocyte esterase, few bacteria -culture shows mixed shelli, probable contaminants -Patient already is on Zosyn as above, can act as a dual therapy (3) IVDU (intravenous drug user) Code(s): F19.90 - Other psychoactive substance use, unspecified, uncomplicated Status: Chronic Plan: Patient admits to using cocaine and heroin. Admitted to nursing staff that she was injecting meth as well. -UDS positive for opiates, amphetamines, cocaine -Will monitor for signs of withdrawal (4) Nutrition, metabolism, and development symptoms Code(s): R63.8 - Other symptoms and signs concerning food and fluid intake Status: Acute Plan: Fluids: tolerating po Electrolytes: monitor and replete as needed Nutrition: Regular diet GI Prophylaxis: None indicated at this time (5) DVT prophylaxis Status: Acute Plan: DVT Prophylaxis: Early ambulation. SCDs <Marta Grace - 09/09/17 14:35> - Assessment and Plan 37-year-old white female with history of IVDU presenting with left arm pain. Diagnosed with cellulitis and likely abscess. MRI shows a large abscess. Patient status post bedside I&D on 09/08 <Marta Grace - 09/09/17 11:59> Discharge Planning: Case management consulted. Patient is homeless and self- pay status. <Marta Grace - 09/09/17 11:59> - Attending Attestation Patient seen and examined, discussed this morning with Dr. Grace. I agree with assessment and management as documented and discussed with me. Pt complains of left arm pain. She does report pain is a little better. Dressing/packing change today. Discussed with patient she should try to determine where she could go after discharge / contact any friends/family to make discharge plans. Continue IV antibiotics. Await wound culture. <Mali Womack - 09/09/17 20:54>
[2017-09-09] MEDS: Morphine Inj 4 MG/ML Vial IV.PUSH PRN ×2 (12:03→16:00)
[2017-09-09 12:40] LABS: Baso % (Auto) 0.3 % (0.0-2.0); Eos # (Auto) 0.1 th/mm3 (0.0-0.4); Eos % (Auto) 0.8 % (0.0-4.0); Hematocrit 29.8 % (35.0-46.0); Hemoglobin 9.7 gm/dL (11.6-15.3); Lymph # (Auto) 1.5 th/mm3 (1.0-4.8); Mean Corpuscular HGB Conc 32.7 % (32.0-36.0); Mean Corpuscular Volume 88.8 fL (80.0-100.0); Mean Platelet Volume 7.4 fL (7.0-11.0); Mono # (Auto) 0.6 th/mm3 (0.0-0.9); Mono % (Auto) 5.2 % (0.0-8.0); Neut # (Auto) 9.1 th/mm3 (1.8-7.7); Neut % (Auto) 80.7 % (16.0-70.0); Platelet Count 550 th/mm3 (150-450); Red Blood Count 3.35 mil/mm3 (4.00-5.30); Red Cell Distribution Width 14.5 % (11.6-17.2); White Blood Count 11.2 th/mm3 (4.0-11.0)
[2017-09-09 13:03] LABS: Alanine Aminotransferase 12 U/L (10-53); Albumin 2.2 g/dL (3.4-5.0); Anion Gap 11 meq/L (5-15); Aspartate Aminotransferase 12 U/L (15-37); Blood Urea Nitrogen 7 mg/dL (7-18); Calcium 8.4 mg/dL (8.5-10.1); Carbon Dioxide 24.7 meq/L (21.0-32.0); Chloride 105 meq/L (98-107); Glomerular Filtration Rate Greater Than 89 mL/min (>89); Glucose,Random 114 mg/dL (74-106); Potassium 3.6 meq/L (3.5-5.1); Sodium 141 meq/L (136-145)
[2017-09-09 13:06] LABS: Alkaline Phosphatase 101 U/L (45-117); Total Protein 6.3 g/dL (6.4-8.2)
[2017-09-09] MEDS: Ketorolac Inj 30 MG/ML (IVP) Vial IV.PUSH SCH ×2 (15:13→23:31)
[2017-09-10] MEDS: Morphine Inj 4 MG/ML Vial IV.PUSH PRN ×5 (00:22→23:03)
[2017-09-10] MEDS: Piperacil/Tazo 3.375 GM Premix 50 ML IV.SIG SCH ×2 (04:45→06:32)
[2017-09-10] MEDS: Ketorolac Inj 30 MG/ML (IVP) Vial IV.PUSH SCH ×4 (04:46→21:13)
[2017-09-10] MEDS: Clindamycin 900 mg/NS Premix 900 MG/50 ML PIGGYBACK IV.SIG SCH (05:08)
[2017-09-10] MEDS ORDERED: Piperacil/Tazo 3.375 GM Premix 50 ML IV.SIG SCH (06:00)
[2017-09-10] MEDS: oxyCODONE/Acetaminophen 10/325 Tablet PO PRN ×3 (06:08→21:33)
[2017-09-10] MEDS: Lactobacillus Acidophilus/L. Spores Tablet PO SCH ×3 (08:14→18:02)
[2017-09-10] MEDS: Senna/Docusate Sodium 8.6/50 MG Tablet PO SCH ×2 (08:14→21:14)
[2017-09-10 08:43] LABS: Baso % (Auto) 0.5 % (0.0-2.0); Eos # (Auto) 0.2 th/mm3 (0.0-0.4); Eos % (Auto) 3.1 % (0.0-4.0); Hematocrit 27.3 % (35.0-46.0); Hemoglobin 9.2 gm/dL (11.6-15.3); Lymph # (Auto) 1.9 th/mm3 (1.0-4.8); Mean Corpuscular HGB Conc 33.5 % (32.0-36.0); Mean Corpuscular Hemoglobin 29.6 pg (27.0-34.0); Mean Corpuscular Volume 88.3 fL (80.0-100.0); Mean Platelet Volume 7.6 fL (7.0-11.0); Mono # (Auto) 0.6 th/mm3 (0.0-0.9); Mono % (Auto) 7.5 % (0.0-8.0); Neut # (Auto) 4.7 th/mm3 (1.8-7.7); Neut % (Auto) 62.9 % (16.0-70.0); Platelet Count 554 th/mm3 (150-450); Red Cell Distribution Width 14.4 % (11.6-17.2); White Blood Count 7.5 th/mm3 (4.0-11.0)
[2017-09-10 09:13] LABS: Anion Gap 10 meq/L (5-15); Blood Urea Nitrogen 10 mg/dL (7-18); Calcium 8.5 mg/dL (8.5-10.1); Carbon Dioxide 25.1 meq/L (21.0-32.0); Chloride 108 meq/L (98-107); Glomerular Filtration Rate Greater Than 89 mL/min (>89); Glucose,Random 73 mg/dL (74-106); Sodium 143 meq/L (136-145)
--- NOTE | 2017-09-10 10:43 | P.PNFP ---
Subjective Interval history: Patient seen and examined this morning. Patient has moderate pain in the right arm worse upon movement and palpation. She states that the pain medication helps relieve her pain temporarily, but does not take it away completely. It has continued to drain blood and pus since the packing was changed yesterday. She has been tolerating food well since yesterday evening. Denies fever, chills, nausea, vomiting, abdominal pain, urinary problems, diarrhea, constipation or leg pain. Patient is currently homeless, but states that she may have a friend that she will be able to stay with upon discharge. Discussed patient's situation with case management yesterday, who states they can look into temporary hotel stay if patient does not have safe discharge. <Ashley Treadwell - 09/10/17 12:26> Results - Labs Result diagrams: 09/10/17 07:44 09/10/17 07:44 <Mali Womack - 09/10/17 15:47> Abnormal lab results 09/10/17 09/10/17 Range/Units 07:44 07:44 RBC 3.10 L (4.00-5.30) mil/mm3 Hgb 9.2 L (11.6-15.3) gm/dL Hct 27.3 L (35.0-46.0) % Plt Count 554 H (150-450) th/mm3 Chloride 108 H (98-107) meq/L Random Glucose 73 L (74-106) mg/dL Short CBC 09/10/17 Range/Units 07:44 WBC 7.5 (4.0-11.0) th/mm3 Hgb 9.2 L (11.6-15.3) gm/dL Hct 27.3 L (35.0-46.0) % Plt Count 554 H (150-450) th/mm3 BMP 09/10/17 07:44 Sodium 143 Potassium 4.0 Chloride 108 H Carbon Dioxide 25.1 BUN 10 Creatinine 0.69 Calcium 8.5 <Mali Womack - 09/10/17 15:47> Abnormal lab results 09/09/17 09/09/17 09/10/17 Range/Units 12:22 12:22 07:44 WBC 11.2 H (4.0-11.0) th/mm3 RBC 3.35 L 3.10 L (4.00-5.30) mil/mm3 Hgb 9.7 L 9.2 L (11.6-15.3) gm/dL Hct 29.8 L 27.3 L (35.0-46.0) % Plt Count 550 H 554 H (150-450) th/mm3 Neut % (Auto) 80.7 H (16.0-70.0) % Neut # (Auto) 9.1 H (1.8-7.7) th/mm3 Chloride (98-107) meq/L Random Glucose 114 H (74-106) mg/dL Calcium 8.4 L (8.5-10.1) mg/dL AST 12 L (15-37) U/L Total Protein 6.3 L (6.4-8.2) g/dL Albumin 2.2 L (3.4-5.0) g/dL 09/10/17 Range/Units 07:44 WBC (4.0-11.0) th/mm3 RBC (4.00-5.30) mil/mm3 Hgb (11.6-15.3) gm/dL Hct (35.0-46.0) % Plt Count (150-450) th/mm3 Neut % (Auto) (16.0-70.0) % Neut # (Auto) (1.8-7.7) th/mm3 Chloride 108 H (98-107) meq/L Random Glucose 73 L (74-106) mg/dL Calcium (8.5-10.1) mg/dL AST (15-37) U/L Total Protein (6.4-8.2) g/dL Albumin (3.4-5.0) g/dL Short CBC 09/09/17 09/10/17 Range/Units 12:22 07:44 WBC 11.2 H 7.5 (4.0-11.0) th/mm3 Hgb 9.7 L 9.2 L (11.6-15.3) gm/dL Hct 29.8 L 27.3 L (35.0-46.0) % Plt Count 550 H 554 H (150-450) th/mm3 BMP 09/09/17 09/10/17 12:22 07:44 Sodium 141 143 Potassium 3.6 4.0 Chloride 105 108 H Carbon Dioxide 24.7 25.1 BUN 7 10 Creatinine 0.57 0.69 Calcium 8.4 L 8.5 Liver Function 09/09/17 Range/Units 12:22 Total Bilirubin 0.2 (0.2-1.0) mg/dL AST 12 L (15-37) U/L ALT 12 (10-53) U/L Alkaline Phosphatase 101 (45-117) U/L Albumin 2.2 L (3.4-5.0) g/dL <Ashley Treadwell B - 09/10/17 10:43> Physical Exam Vital signs: Vital Signs 09/09/17 16:00 09/09/17 18:00 09/09/17 20:00 Temperature 97.8 F 97.2 F L 98.1 F Pulse Rate 70 64 60 Respiratory Rate 16 14 18 Blood Pressure 94/49 L 94/59 L 99/56 L Pulse Oximetry 99 100 99 09/10/17 00:00 09/10/17 04:00 09/10/17 08:00 Temperature 98 F 97.8 F 97 F L Pulse Rate 65 64 62 Respiratory Rate 17 15 16 Blood Pressure 100/62 109/59 L 102/66 Pulse Oximetry 100 99 98 09/10/17 12:00 Temperature 97.8 F Pulse Rate 70 Respiratory Rate 17 Blood Pressure 102/58 L Pulse Oximetry 97 Intake & Output 09/09/17 09/10/17 09/10/17 18:59 06:59 18:59 Intake Total 2260 / 2260 680 / 680 Balance 2260 / 2260 680 / 680 Intake: IV 1200 / 1200 200 / 200 NS Inj 1,000 ML @ 100 mls/hr IV 1000 / 1000 .CONT .Q10H BRIE Rx#:[id number] Cleocin 900 mg/NS Premix 900 mg 100 / 100 100 / 100 In 50 ml @ 100 mls/hr IV.SIG Q8H BRIE Rx#:[id number] Zosyn 3.375 GM Premix 50 ML @ 100 / 100 100 / 100 100 mls/hr IV.SIG Q6H BRIE Rx#: [id number] Oral 1060 / 1060 480 / 480 Other: # Voids 4 Date of Last Bowel Movement 09/09/17 # Bowel Movements 1 <Mali Womack - 09/10/17 15:47> Vital Signs 09/09/17 12:00 09/09/17 16:00 09/09/17 18:00 Temperature 98.3 F 97.8 F 97.2 F L Pulse Rate 77 70 64 Respiratory Rate 16 16 14 Blood Pressure 94/49 L 94/59 L Pulse Oximetry 99 100 09/09/17 20:00 09/10/17 00:00 09/10/17 04:00 Temperature 98.1 F 98 F 97.8 F Pulse Rate 60 65 64 Respiratory Rate 18 17 15 Blood Pressure 99/56 L 100/62 109/59 L Pulse Oximetry 99 100 99 09/10/17 08:00 Temperature 97 F L Pulse Rate 62 Respiratory Rate 16 Blood Pressure 102/66 Pulse Oximetry 98 Intake & Output 09/09/17 09/10/17 09/10/17 18:59 06:59 18:59 Intake Total 2260 / 2260 680 / 680 Balance 2260 / 2260 680 / 680 Intake: IV 1200 / 1200 200 / 200 NS Inj 1,000 ML @ 100 mls/hr IV 1000 / 1000 .CONT .Q10H BRIE Rx#:[id number] Cleocin 900 mg/NS Premix 900 mg 100 / 100 100 / 100 In 50 ml @ 100 mls/hr IV.SIG Q8H BRIE Rx#:[id number] Zosyn 3.375 GM Premix 50 ML @ 100 / 100 100 / 100 100 mls/hr IV.SIG Q6H BRIE Rx#: [id number] Oral 1060 / 1060 480 / 480 Other: # Voids 4 Date of Last Bowel Movement 09/09/17 # Bowel Movements 1 <Ashley Treadwell B - 09/10/17 10:43> Narrative: GENERAL: Thin white female asleep in bed, in no acute distress SKIN: Warm and dry. Left forearm: [id number] area with induration, less erythema than yesterday. Incision site with packing that is draining blood mixed with pus. 2 4x4cm gauze soaked in blood and pus, changed on exam. 2x3cm ecchymosis inferior to incision. Moderately tender to palpation. Left arm from elbow to dorsum of hand with non-pitting edema. Radial pulses 2+. Normal sensation. Capillary refill under 2 seconds. Right arm: 3x2cm raised erythematous, indurated area lateral to antecubital fossa. Has expanded since yesterday. Tender to palpation. HEAD: Atraumatic. Normocephalic. EYES: No scleral icterus. No injection or drainage. ENT: No nasal bleeding or discharge. NECK: Trachea midline. No JVD. CARDIOVASCULAR: Regular rate and rhythm. Prominent S1 heard best in mitral area. RESPIRATORY: No accessory muscle use. Clear to auscultation anteriorly. Breath sounds equal bilaterally. GASTROINTESTINAL: Abdomen soft, non-tender, nondistended. Hepatic and splenic margins not palpable. MUSCULOSKELETAL: Extremities without clubbing, or cyanosis. NEUROLOGICAL: Awake and alert. No obvious cranial nerve deficits. Motor grossly within normal limits. Normal speech. <Ashley Treadwell Aneudy - 09/10/17 12:26> Assessment and Plan - Assessment (1) Cellulitis of left arm Code(s): L03.114 - Cellulitis of left upper limb Status: Acute (2) UTI (urinary tract infection) Code(s): N39.0 - Urinary tract infection, site not specified Status: Acute (3) IVDU (intravenous drug user) Code(s): F19.90 - Other psychoactive substance use, unspecified, uncomplicated Status: Chronic (4) Nutrition, metabolism, and development symptoms Code(s): R63.8 - Other symptoms and signs concerning food and fluid intake Status: Acute (5) DVT prophylaxis Status: Acute <Mali Womack - 09/10/17 15:47> (1) Cellulitis of left arm Code(s): L03.114 - Cellulitis of left upper limb Status: Acute Plan: 37-year-old female with history of IV drug use presenting with left arm pain with cellulitis and likely abscess. She had leukocytosis, neutrophil predominate, up to 15.9. Patient did not meet SIRS criteria on admission. However, she developed a fever and tachycardia later. Fluctuance was not noted on exam and imaging was not performed in ED. Patient is status post bedside I&D on 09/08 with about 200ml of pus drained. 09/10 Leukocytosis is decreasing, now at 7.5. No fevers overnight. MRI of left forearm showed a greater than 9 cm subcutaneous abscess about the medial aspect of the proximal forearm from surrounding the ulna without signal abnormality within the marrow of the ulna. There is evidence of some involvement of the adjacent dorsal musculature. -Bld cx NGTD (note that it was drawn after patient had received abx in ED) -wound culture grew heavy normal skin shelli -will de-escalate antibiotics as appropriate -Started Cefazolin 1g every 8 hours (09/10- ) -Clindamycin 900 mg IV every 8 hours (09/07-09/10), discontinued following wound culture results. -Zosyn 3.375 g IV every 6 hours (09/07-09/10), discontinued following wound culture results. -Patient has a high tolerance to opioids, will DC morphine pain scale post I&D and give Percocets with morphine as needed for breakthrough, can adjust as needed. -Tylenol as needed for fever -Continue to pack and re-dress wound daily (2) UTI (urinary tract infection) Code(s): N39.0 - Urinary tract infection, site not specified Status: Acute Plan: Patient reports painful urination and difficulty urinating. UA on admission is positive for nitrate, trace leukocyte esterase, few bacteria -culture shows mixed shelli, probable contaminants (3) IVDU (intravenous drug user) Code(s): F19.90 - Other psychoactive substance use, unspecified, uncomplicated Status: Chronic Plan: Patient admits to using cocaine and heroin. Admitted to nursing staff that she was injecting meth as well. -UDS positive for opiates, amphetamines, cocaine -Will monitor for signs of withdrawal (4) Nutrition, metabolism, and development symptoms Code(s): R63.8 - Other symptoms and signs concerning food and fluid intake Status: Acute Plan: Fluids: tolerating po Electrolytes: monitor and replete as needed Nutrition: Regular diet GI Prophylaxis: None indicated at this time (5) DVT prophylaxis Status: Acute Plan: DVT Prophylaxis: Early ambulation. SCDs <Ashley Treadwell - 09/10/17 12:03> - Assessment and Plan 37-year-old white female with history of IVDU presenting with left arm pain. Diagnosed with cellulitis and likely abscess. MRI shows a large abscess. Patient status post bedside I&D on 09/08. <Ashley Treadwell - 09/10/17 12:26> - Attending Attestation Patient seen, examined, and discussed with Dr Treadwell this morning. I agree with assessment and management as documented and discussed with me. Corrected documentation: In subjective: it is Left arm with pain and tenderness. Pt reports overall pain is a little improved. She continues to have drainage from I&D site. Packing changed yesterday by nursing. Deescalate antibiotics, based on wound culture. <Mali Womack - 09/10/17 15:47>
[2017-09-11] MEDS: Ketorolac Inj 30 MG/ML (IVP) Vial IV.PUSH SCH ×4 (03:31→20:46)
[2017-09-11] MEDS: oxyCODONE/Acetaminophen 10/325 Tablet PO PRN ×4 (03:33→21:33)
[2017-09-11] MEDS: Morphine Inj 4 MG/ML Vial IV.PUSH PRN ×6 (05:50→22:50)
[2017-09-11] MEDS: Senna/Docusate Sodium 8.6/50 MG Tablet PO SCH ×2 (08:50→20:47)
[2017-09-11] MEDS: Lactobacillus Acidophilus/L. Spores Tablet PO SCH ×3 (08:50→18:57)
--- NOTE | 2017-09-11 09:22 | P.PNADD ---
Addendum to Inpatient Note Reason for Addendum: Additional Documentation Additional information: Off Service Note This is a pleasant 37 year old female with history of IVDA presented with left arm abscess following heroin injection into that arm two days prior. Patient placed on Clindamycin and Zosyn due to patients allergy to Vancomycin in the ED. MR of left arm ordered at admission, which showed 9x9 cm subcutaneous abscess about the medial aspect of the proximal forearm from surrounding the ulna without signal abnormality within the marrow of the ulna. Hand surgery consulted, who stated that bedside I&D would be sufficient due to lack of involvement of underlying musculature or bone. Patient is now s/p bedside I&D on 09/08. Continued packing and re-dressing of the wound daily. Patient has a high tolerance to opioids, patient given scheduled Percocet, with morphine as needed for breakthrough, which can be adjusted as needed. Patient is currently homeless. CM consulted for anticipated discharge in a couple of days due to patients unstable living situation and open wound on discharge. Patient states that she may be able to stay with a friend who lives in a house in [place]. She states that she is not close with her mother, Emily Villarreal ([phone]), but notes that if she is called and updated of the patient's situation and course of hospital stay, she may be able to be discharged to her mother's house in [place]. CM states that they can provide transport. If neither of these options for discharge work, may consider short stay at [facility].
--- NOTE | 2017-09-11 09:48 | P.PNFP ---
Subjective Interval history: Patient was seen and examined this morning. She complains of nausea and diffuse abdominal pain. She describes the pain as a dull pain located diffusely around the abdomen, that started this morning. She also complains of left arm pain upon movement. She has been tolerating food well. She denies any fevers, chills, vomiting, dizziness, urinary problems, diarrhea, chest pain or shortness of breath. Case management was consulted today regarding her discharge status. Patient states that she has a friend that she can possibly stay with, or her mother in [place]. Patient provided us with mother's number and asked for us to call her. Her number is [phone] and her name is Emily Villarreal. Patient will talk to her friend and update us later today. <Olga Roberts - 09/11/17 09:52> Results - Labs Result diagrams: 09/11/17 13:40 09/11/17 13:40 <Mali Womack - 09/11/17 20:30> Abnormal lab results 09/11/17 09/11/17 Range/Units 13:40 13:40 RBC 3.38 L (4.00-5.30) mil/mm3 Hgb 10.0 L (11.6-15.3) gm/dL Hct 30.1 L (35.0-46.0) % Plt Count 648 H (150-450) th/mm3 Calcium 8.3 L (8.5-10.1) mg/dL Short CBC 09/11/17 Range/Units 13:40 WBC 8.1 (4.0-11.0) th/mm3 Hgb 10.0 L (11.6-15.3) gm/dL Hct 30.1 L (35.0-46.0) % Plt Count 648 H (150-450) th/mm3 [facility] 09/11/17 13:40 Sodium 141 Potassium 3.9 Chloride 106 Carbon Dioxide 26.6 BUN 10 Creatinine 0.69 Calcium 8.3 L <Mali Womack - 09/11/17 20:30> Abnormal lab results 09/10/17 Range/Units 07:44 Chloride 108 H (98-107) meq/L Random Glucose 73 L (74-106) mg/dL [facility] 09/10/17 07:44 Sodium 143 Potassium 4.0 Chloride 108 H Carbon Dioxide 25.1 BUN 10 Creatinine 0.69 Calcium 8.5 <Olga Roberts - 09/11/17 09:48> Physical Exam Vital signs: Vital Signs 09/10/17 23:44 09/11/17 04:00 09/11/17 08:00 Temperature 97.8 F 98.1 F 97.7 F Pulse Rate 69 64 92 H Respiratory Rate 16 15 16 Blood Pressure 101/62 96/50 L 106/65 Pulse Oximetry 100 99 98 09/11/17 12:00 09/11/17 16:00 Temperature 97.6 F 97.7 F Pulse Rate 72 63 Respiratory Rate 18 16 Blood Pressure 91/49 L 90/60 L Pulse Oximetry 97 98 Intake & Output 09/11/17 09/11/17 09/12/17 06:59 18:59 06:59 Intake Total 100 / 100 1640 / 1640 Output Total 4 / 4 Balance 100 / 100 1636 / 1636 Intake: IV 100 / 100 200 / 200 Ancef Inj 1,000 MG In NS Inj 100 / 100 200 / 200 100 ML @ 200 mls/hr IV.SIG Q8H BRIE Rx#:[id number] Oral 1440 / 1440 Output: Urine 4 / 4 Other: # Bowel Movements 0 <Mali Womack - 09/11/17 20:30> Vital Signs 09/10/17 12:00 09/10/17 16:00 09/10/17 20:00 Temperature 97.8 F 98.0 F 97.9 F Pulse Rate 70 71 69 Respiratory Rate 17 14 16 Blood Pressure 102/58 L 95/56 L 98/61 L Pulse Oximetry 97 97 99 09/10/17 23:44 09/11/17 04:00 Temperature 97.8 F 98.1 F Pulse Rate 69 64 Respiratory Rate 16 15 Blood Pressure 101/62 96/50 L Pulse Oximetry 100 99 Intake & Output 09/10/17 09/11/17 09/11/17 18:59 06:59 18:59 Intake Total 100 / 100 100 / 100 Balance 100 / 100 100 / 100 Intake: IV 100 / 100 100 / 100 Ancef Inj 1,000 MG In NS Inj 100 / 100 100 / 100 100 ML @ 200 mls/hr IV.SIG Q8H BRIE Rx#:[id number] Other: # Voids 3 # Bowel Movements 1 <Olga Roberts 09/11/17 09:48> Narrative: General: Thin white female laying in bed, in no acute distress. <Olga Roberts 09/11/17 09:48> - Routine HEENT Exam Head: Present: normocephalic, atraumatic <Olga Roberts 09/11/17 09:48> - Routine Respiratory Exam Present: CTA bilaterally. Absent: accessory muscle use, rhonchi, wheezes, crackles <Olga Roberts 09/11/17 09:48> - Routine Cardiovascular Exam Present: RRR, murmur <Olga Roberts 09/11/17 09:48> Comments: Grade 2 systolic murmur appreciated over the L sternal border <Olga Roberts 09/11/17 09:48> - Routine Abdominal Exam Present: soft, normoactive bowel sounds, tenderness <Olga Roberts 09:48> Comments: tenderness to deep palpation in the periumbilical region <Olga Roberts 09/11/17 09:48> - Routine Extremities Exam Present: pulses intact, tenderness <Olga Roberts 09/11/17 09:48> - Routine Skin Exam Comments: Right forearm: 3 X3 cm area of erythematous fluctuance. Possibly abscess. Located lateral to the antecubital fossa. Size has remained the same since yesterday. Tender to palpation. Area is not warm to touch. Left forearm: 10 x 10 cm area with induration, less erythema than yesterday. Incision site seems to no longer be draining pus, more like a serosanguineous fluid. Packing was filled with blood mixed with pus when dressing was changed. Area is tender to palpation. Slight swelling surrounding the lesion that has decreased from yesterday's evaluation. Radial pulses 2+. Normal sensation in the left fingertips. Cap refill under 2 seconds. Hand Scudder strength 5 out of 5. <Olga Roberts 09/11/17 09:48> Assessment and Plan - Assessment (1) Cellulitis of left arm Code(s): L03.114 - Cellulitis of left upper limb Status: Acute (2) Systolic murmur Code(s): R01.1 - Cardiac murmur, unspecified Status: Acute (3) Abdominal pain Code(s): R10.9 - Unspecified abdominal pain Status: Acute (4) IVDU (intravenous drug user) Code(s): F19.90 - Other psychoactive substance use, unspecified, uncomplicated Status: Chronic (5) UTI (urinary tract infection) Code(s): N39.0 - Urinary tract infection, site not specified Status: Resolved (6) Nutrition, metabolism, and development symptoms Code(s): R63.8 - Other symptoms and signs concerning food and fluid intake Status: Acute (7) DVT prophylaxis Status: Acute <Mali Womack - 09/11/17 20:30> (1) Cellulitis of left arm Code(s): L03.114 - Cellulitis of left upper limb Status: Acute Plan: 37-year-old female with history of IV drug use presenting with left arm pain with cellulitis and likely abscess. She had leukocytosis, neutrophil predominate, up to 15.9. Patient did not meet SIRS criteria on admission. However, she developed a fever and tachycardia later. Fluctuance was not noted on exam and imaging was not performed in ED. Patient is status post bedside I&D on 09/08 with about 200ml of pus drained. 09/10 Leukocytosis is decreasing, was at 7.5 from yesterday. 09/11: Pending a.m. labs. No fevers overnight. Vitals Stable. MRI of left forearm showed a greater than 9 cm subcutaneous abscess about the medial aspect of the proximal forearm from surrounding the ulna without signal abnormality within the marrow of the ulna. There is evidence of some involvement of the adjacent dorsal musculature. -Bld cx NGTD (note that it was drawn after patient had received abx in ED) -wound culture grew heavy normal skin shelli -will de-escalate antibiotics as appropriate -Started Cefazolin 1g every 8 hours (09/10- ) Plan to switch to p.o. in anticipation of discharge. -Clindamycin 900 mg IV every 8 hours (09/07-09/10): Discontinued following wound culture results. -Zosyn 3.375 g IV every 6 hours (09/07-09/10): discontinued following wound culture results. -Patient has a high tolerance to opioids, will DC morphine pain scale post I&D and give Percocet with morphine as needed for breakthrough, can adjust as needed. -Tylenol as needed for fever. -Continue to pack and re-dress wound daily Patient is unable to be discharged due to unstable living situation and an open wound that needs frequent redressing. Case management was consulted and is aware of the need to provide a secure living situation for patient before discharge. Patient is aware and will try to reach out to her friend. The medicine team will contact her mother and gain more information on the living situation and if she can return to mother's house. (2) Systolic murmur Code(s): R01.1 - Cardiac murmur, unspecified Status: Acute Plan: Grade 2 systolic murmur appreciated over the L sternal Border. With Hx of IVDU, Concerns for Endocarditis: No Splinter hemorrhages seen on PE. Echo Done on 09/[address] Parnell: but no specific details on vegetations. Will reach out to Cardiology tomorrow. Appreciate recommendations (3) Abdominal pain Code(s): R10.9 - Unspecified abdominal pain Status: Acute Plan: Patient describes diffuse abdominal pain with associated nausea this morning. Patient has no change in bowel movements. Denies any dysuria. Could possibly be due to withdrawal symptoms. Zofran 4 mg p.o. every 6 as needed. Monitor for withdrawal symptoms: Diaphoresis, tachycardia, abdominal pain, anxiety. (4) IVDU (intravenous drug user) Code(s): F19.90 - Other psychoactive substance use, unspecified, uncomplicated Status: Chronic Plan: Patient admits to using cocaine and heroin. Admitted to nursing staff that she was injecting meth as well. -UDS positive for opiates, amphetamines, cocaine -Will monitor for signs of withdrawal (5) UTI (urinary tract infection) Code(s): N39.0 - Urinary tract infection, site not specified Status: Resolved Plan: Patient reported painful urination and difficulty urinating on admission. UA on admission is positive for nitrate, trace leukocyte esterase, few bacteria -culture shows mixed shelli, probable contaminants Patient denies any urinary symptoms today. Now resolved. (6) Nutrition, metabolism, and development symptoms Code(s): R63.8 - Other symptoms and signs concerning food and fluid intake Status: Acute Plan: Fluids: tolerating po Electrolytes: monitor and replete as needed Nutrition: Regular diet GI Prophylaxis: None indicated at this time (7) DVT prophylaxis Status: Acute Plan: DVT Prophylaxis: Early ambulation. SCDs <Olga Roberts - 09/11/17 10:01> - Assessment and Plan 37-year-old white female with history of IVDU presenting with left arm pain. Diagnosed with cellulitis and likely abscess. MRI shows a large abscess. Patient status post bedside I&D on 09/08. <Olga Roberts - 09/11/17 09:52> - Attending Attestation Patient seen and examined this afternoon, discussed with resident team. I agree with assessment and management as documented and discussed with me. Pt reports not feeling well today, when asked to describe further, she stated " I don't know". Area is less edematous. Less induration. Discussed pt with nurse, who reports that patient refused packing change yesterday. Discussed with patient the importance of having daily packing changes. <Mali Womack - 09/11/17 20:30>
[2017-09-11 14:20] LABS: Hematocrit 30.1 % (35.0-46.0); Mean Corpuscular HGB Conc 33.3 % (32.0-36.0); Mean Corpuscular Hemoglobin 29.6 pg (27.0-34.0); Mean Corpuscular Volume 89.1 fL (80.0-100.0); Mean Platelet Volume 7.3 fL (7.0-11.0); Platelet Count 648 th/mm3 (150-450); Red Blood Count 3.38 mil/mm3 (4.00-5.30); Red Cell Distribution Width 14.6 % (11.6-17.2); White Blood Count 8.1 th/mm3 (4.0-11.0)
[2017-09-11 14:44] LABS: Anion Gap 8 meq/L (5-15); Blood Urea Nitrogen 10 mg/dL (7-18); Calcium 8.3 mg/dL (8.5-10.1); Carbon Dioxide 26.6 meq/L (21.0-32.0); Chloride 106 meq/L (98-107); Glomerular Filtration Rate Greater Than 89 mL/min (>89); Glucose,Random 104 mg/dL (74-106); Potassium 3.9 meq/L (3.5-5.1); Sodium 141 meq/L (136-145)
[2017-09-12] MEDS: Ketorolac Inj 30 MG/ML (IVP) Vial IV.PUSH SCH ×5 (01:45→21:22)
[2017-09-12] MEDS: oxyCODONE/Acetaminophen 10/325 Tablet PO PRN ×3 (05:07→18:53)
[2017-09-12] MEDS: Morphine Inj 4 MG/ML Vial IV.PUSH PRN ×4 (06:41→21:30)
[2017-09-12 08:17] LABS: Baso # (Auto) 0.1 th/mm3 (0.0-0.2); Baso % (Auto) 0.9 % (0.0-2.0); Eos # (Auto) 0.3 th/mm3 (0.0-0.4); Eos % (Auto) 3.1 % (0.0-4.0); Hematocrit 30.5 % (35.0-46.0); Hemoglobin 10.2 gm/dL (11.6-15.3); Lymph # (Auto) 2.3 th/mm3 (1.0-4.8); Lymph % (Auto) 26.6 % (9.0-44.0); Mean Corpuscular HGB Conc 33.3 % (32.0-36.0); Mean Corpuscular Hemoglobin 29.4 pg (27.0-34.0); Mean Corpuscular Volume 88.4 fL (80.0-100.0); Mean Platelet Volume 7.3 fL (7.0-11.0); Mono # (Auto) 0.5 th/mm3 (0.0-0.9); Mono % (Auto) 5.4 % (0.0-8.0); Neut # (Auto) 5.4 th/mm3 (1.8-7.7); Platelet Count 679 th/mm3 (150-450); Red Blood Count 3.45 mil/mm3 (4.00-5.30); Red Cell Distribution Width 14.4 % (11.6-17.2); White Blood Count 8.5 th/mm3 (4.0-11.0)
[2017-09-12 08:42] LABS: Alanine Aminotransferase 13 U/L (10-53); Albumin 2.4 g/dL (3.4-5.0); Anion Gap 5 meq/L (5-15); Aspartate Aminotransferase 11 U/L (15-37); Blood Urea Nitrogen 12 mg/dL (7-18); Calcium 8.6 mg/dL (8.5-10.1); Carbon Dioxide 30.1 meq/L (21.0-32.0); Chloride 105 meq/L (98-107); Glomerular Filtration Rate 88 mL/min (>89); Glucose,Random 75 mg/dL (74-106); Potassium 4.4 meq/L (3.5-5.1); Sodium 140 meq/L (136-145)
[2017-09-12 08:44] LABS: Alkaline Phosphatase 83 U/L (45-117); Total Protein 6.1 g/dL (6.4-8.2)
[2017-09-12] MEDS: Senna/Docusate Sodium 8.6/50 MG Tablet PO SCH ×2 (09:02→21:23)
[2017-09-12] MEDS: Lactobacillus Acidophilus/L. Spores Tablet PO SCH ×3 (09:02→17:57)
--- NOTE | 2017-09-12 13:15 | P.PNFP ---
Subjective Interval history: Patient was seen and examined this morning. She states that she is not feeling well this morning. She complains of nausea and abdominal pain. Has not taken anything for the nausea. She states that the abscess on her right elbow has gotten worse and grown in size. The pain on her left arm wound has remained the same. She has spoken to her friend about possibly living with him in anticipation for discharge. She says he is still unsure about her living with him but she will continue to ask. She is requested for us to speak to her mother in hopes of staying with her after discharge. She denies any fevers, night sweats, chills, chest pain, shortness of breath, abdominal pain, or urinary symptoms. No other events occurred overnight. All questions and concerns were answered at bedside. <Olga Roberts - 09/12/17 13:15> Results - Labs Result diagrams: 09/12/17 07:43 09/12/17 07:43 <Mali Womack - 09/12/17 20:47> Abnormal lab results 09/12/17 09/12/17 Range/Units 07:43 07:43 RBC 3.45 L (4.00-5.30) mil/mm3 Hgb 10.2 L (11.6-15.3) gm/dL Hct 30.5 L (35.0-46.0) % Plt Count 679 H (150-450) th/mm3 Estimated GFR 88 L (>89) mL/min Total Bilirubin 0.1 L (0.2-1.0) mg/dL AST 11 L (15-37) U/L Total Protein 6.1 L (6.4-8.2) g/dL Albumin 2.4 L (3.4-5.0) g/dL Short CBC 09/12/17 Range/Units 07:43 WBC 8.5 (4.0-11.0) th/mm3 Hgb 10.2 L (11.6-15.3) gm/dL Hct 30.5 L (35.0-46.0) % Plt Count 679 H (150-450) th/mm3 BMP 09/12/17 07:43 Sodium 140 Potassium 4.4 Chloride 105 Carbon Dioxide 30.1 BUN 12 Creatinine 0.75 Calcium 8.6 Liver Function 09/12/17 Range/Units 07:43 Total Bilirubin 0.1 L (0.2-1.0) mg/dL AST 11 L (15-37) U/L ALT 13 (10-53) U/L Alkaline Phosphatase 83 (45-117) U/L Albumin 2.4 L (3.4-5.0) g/dL <Mali Womack - 09/12/17 20:47> Abnormal lab results 09/11/17 09/11/17 09/12/17 Range/Units 13:40 13:40 07:43 RBC 3.38 L 3.45 L (4.00-5.30) mil/mm3 Hgb 10.0 L 10.2 L (11.6-15.3) gm/dL Hct 30.1 L 30.5 L (35.0-46.0) % Plt Count 648 H 679 H (150-450) th/mm3 Estimated GFR (>89) mL/min Calcium 8.3 L (8.5-10.1) mg/dL Total Bilirubin (0.2-1.0) mg/dL AST (15-37) U/L Total Protein (6.4-8.2) g/dL Albumin (3.4-5.0) g/dL 09/12/17 Range/Units 07:43 RBC (4.00-5.30) mil/mm3 Hgb (11.6-15.3) gm/dL Hct (35.0-46.0) % Plt Count (150-450) th/mm3 Estimated GFR 88 L (>89) mL/min Calcium (8.5-10.1) mg/dL Total Bilirubin 0.1 L (0.2-1.0) mg/dL AST 11 L (15-37) U/L Total Protein 6.1 L (6.4-8.2) g/dL Albumin 2.4 L (3.4-5.0) g/dL Short CBC 09/11/17 09/12/17 Range/Units 13:40 07:43 WBC 8.1 8.5 (4.0-11.0) th/mm3 Hgb 10.0 L 10.2 L (11.6-15.3) gm/dL Hct 30.1 L 30.5 L (35.0-46.0) % Plt Count 648 H 679 H (150-450) th/mm3 BMP 09/11/17 09/12/17 13:40 07:43 Sodium 141 140 Potassium 3.9 4.4 Chloride 106 105 Carbon Dioxide 26.6 30.1 BUN 10 12 Creatinine 0.69 0.75 Calcium 8.3 L 8.6 Liver Function 09/12/17 Range/Units 07:43 Total Bilirubin 0.1 L (0.2-1.0) mg/dL AST 11 L (15-37) U/L ALT 13 (10-53) U/L Alkaline Phosphatase 83 (45-117) U/L Albumin 2.4 L (3.4-5.0) g/dL <Olga Roberts - 09/12/17 13:15> Physical Exam Vital signs: Vital Signs 09/12/17 00:00 09/12/17 04:00 09/12/17 07:52 Temperature 98.3 F 98 F 97.6 F Pulse Rate 67 65 58 L Respiratory Rate 16 16 19 Blood Pressure 97/60 L 94/64 L 106/6 L Pulse Oximetry 98 97 98 09/12/17 12:00 09/12/17 12:06 09/12/17 15:33 Temperature 98 F 97.2 F L Pulse Rate 68 72 Respiratory Rate 18 16 18 Blood Pressure 103/56 L 100/55 L Pulse Oximetry 98 100 Intake & Output 09/12/17 09/12/17 09/13/17 06:59 18:59 06:59 Intake Total 100 / 100 450 / 450 Balance 100 / 100 450 / 450 Intake: IV 100 / 100 100 / 100 Ancef Inj 1,000 MG In NS Inj 100 / 100 100 / 100 100 ML @ 200 mls/hr IV.SIG Q8H [facility] Rx#:[id number] Oral 350 / 350 Other: # Voids 2 <Vey,Mali - 09/12/17 20:47> Vital Signs 09/11/17 16:00 09/11/17 20:00 09/12/17 00:00 Temperature 97.7 F 98.1 F 98.3 F Pulse Rate 63 65 67 Respiratory Rate 16 16 16 Blood Pressure 90/60 L 106/66 97/60 L Pulse Oximetry 98 98 98 09/12/17 04:00 09/12/17 07:52 09/12/17 12:00 Temperature 98 F 97.6 F 98 F Pulse Rate 65 58 L 68 Respiratory Rate 16 19 18 Blood Pressure 94/64 L 106/6 L 103/56 L Pulse Oximetry 97 98 98 09/12/17 12:06 Temperature Pulse Rate Respiratory Rate 16 Blood Pressure Pulse Oximetry Intake & Output 09/11/17 09/12/17 09/12/17 18:59 06:59 18:59 Intake Total 1640 / 1640 100 / 100 100 / 100 Output Total 4 / 4 Balance 1636 / 1636 100 / 100 100 / 100 Intake: IV 200 / 200 100 / 100 100 / 100 Ancef Inj 1,000 MG In NS Inj 200 / 200 100 / 100 100 / 100 100 ML @ 200 mls/hr IV.SIG Q8H [facility] Rx#:[id number] Oral 1440 / 1440 Output: Urine 4 / Other: # Bowel Movements 0 <ZairapatrickOlga 09/12/17 13:15> Narrative: Female laying in bed, groaning, grimacing in pain. <ArmandoOlga - 09/12/17 13:28> - Constitutional no acute distress <ArmandoOlga - 09/12/17 13:28> - Routine HEENT Exam Head: Present: normocephalic, atraumatic <ZairapatrickOlga - 09/12/17 13:28> - Routine Respiratory Exam Present: CTA bilaterally. Absent: rhonchi, stridor, wheezes <ArmandoOlga - 09/12/17 13:28> - Routine Cardiovascular Exam Present: RRR, S1, S2 <ArmandoOlga - 09/12/17 13:28> - Routine Abdominal Exam Present: soft, normoactive bowel sounds, tenderness <ArmandoOlga - 13:28> Comments: Suprapubic tenderness to palpation. <ArmandoOlga - 09/12/17 13:28> - Routine Skin Exam Comments: Right forearm: 44 cm area of erythematous fluctuance. Possibly abscess. Located lateral to the antecubital fossa. Size is increased from yesterday. It is tender to palpation and warm to the touch. Forearm: 10 x 10 cm area of induration, scant amount of erythema present as yesterday. Incision site continues to drain serosanguineous fluid. Incision site seems to be draining less than yesterday. Area is dye tank tender to palpation and warm to the touch. <Olga Roberts - 09/12/17 13:28> Assessment and Plan - Assessment (1) Cellulitis of left arm Code(s): L03.114 - Cellulitis of left upper limb Status: Acute (2) Systolic murmur Code(s): R01.1 - Cardiac murmur, unspecified Status: Acute (3) Abdominal pain Code(s): R10.9 - Unspecified abdominal pain Status: Acute (4) IVDU (intravenous drug user) Code(s): F19.90 - Other psychoactive substance use, unspecified, uncomplicated Status: Chronic (5) UTI (urinary tract infection) Code(s): N39.0 - Urinary tract infection, site not specified Status: Resolved (6) Nutrition, metabolism, and development symptoms Code(s): R63.8 - Other symptoms and signs concerning food and fluid intake Status: Acute (7) DVT prophylaxis Status: Acute <Mali Womack - 09/12/17 20:47> (1) Cellulitis of left arm Code(s): L03.114 - Cellulitis of left upper limb Status: Acute Plan: 37-year-old female with history of IV drug use presenting with left arm pain with cellulitis and likely abscess. She had leukocytosis, neutrophil predominate, up to 15.9. Patient did not meet SIRS criteria on admission. However, she developed a fever and tachycardia later. Fluctuance was not noted on exam and imaging was not performed in ED. Patient is status post bedside I&D on 09/08 with about 200ml of pus drained. 09/10 Leukocytosis is decreasing, was at 7.5 from yesterday. 09/11: Pending a.m. labs. No fevers overnight. Vitals Stable. 09/12: WBC count increased from 7.5 to 8.5 overnight. Continue to monitor. MRI of left forearm showed a greater than 9 cm subcutaneous abscess about the medial aspect of the proximal forearm from surrounding the ulna without signal abnormality within the marrow of the ulna. There is evidence of some involvement of the adjacent dorsal musculature. -Bld cx NGTD (note that it was drawn after patient had received abx in ED) -wound culture grew heavy normal skin shelli -will de-escalate antibiotics as appropriate -Started Cefazolin 1g every 8 hours (09/10- ) Plan to switch to p.o. in anticipation of discharge. -Clindamycin 900 mg IV every 8 hours (09/07-09/10): Discontinued following wound culture results. -Zosyn 3.375 g IV every 6 hours (09/07-09/10): discontinued following wound culture results. -Patient has a high tolerance to opioids, will DC morphine pain scale post I&D and give Percocet with morphine as needed for breakthrough, can adjust as needed. -Tylenol as needed for fever. -Continue to pack and re-dress wound daily Patient is unable to be discharged due to unstable living situation and an open wound that needs frequent redressing. Case management was consulted and is aware of the need to provide a secure living situation for patient before discharge. Patient has contacted her friend who was hesitant to take her into his house after discharge. She will continue to ask him. Tried contacting Emily Villarreal her mother, with no response. Went to Voicemail. Will retry at a later time. - Right arm abscess has increased in size and is fluctuant. Plan for I&D later today. (2) Systolic murmur Code(s): R01.1 - Cardiac murmur, unspecified Status: Acute Plan: Grade 2 systolic murmur appreciated over the L sternal Border. With Hx of IVDU, Concerns for Endocarditis: No Splinter hemorrhages seen on PE. Echo Done on 09/[address] Parnell: but no specific details on vegetations. Will reach out to Cardiology. Appreciate recommendations (3) Abdominal pain Code(s): R10.9 - Unspecified abdominal pain Status: Acute Plan: Patient describes suprapubic abdominal pain with associated nausea this morning. Patient has no change in bowel movements. Denies any dysuria. Could possibly be due to withdrawal symptoms. Zofran 4 mg p.o. every 6 as needed. Monitor for withdrawal symptoms: Diaphoresis, tachycardia, abdominal pain, anxiety. (4) IVDU (intravenous drug user) Code(s): F19.90 - Other psychoactive substance use, unspecified, uncomplicated Status: Chronic Plan: Patient admits to using cocaine and heroin. Admitted to nursing staff that she was injecting meth as well. -UDS positive for opiates, amphetamines, cocaine -Will monitor for signs of withdrawal (5) UTI (urinary tract infection) Code(s): N39.0 - Urinary tract infection, site not specified Status: Resolved Plan: Patient reported painful urination and difficulty urinating on admission. UA on admission is positive for nitrate, trace leukocyte esterase, few bacteria -culture shows mixed shelli, probable contaminants Patient denies any urinary symptoms today. Now resolved. (6) Nutrition, metabolism, and development symptoms Code(s): R63.8 - Other symptoms and signs concerning food and fluid intake Status: Acute Plan: Fluids: tolerating po Electrolytes: monitor and replete as needed Nutrition: Regular diet GI Prophylaxis: None indicated at this time (7) DVT prophylaxis Status: Acute Plan: DVT Prophylaxis: Early ambulation. SCDs <Olga Roberts - 09/12/17 16:08> - Assessment and Plan 37-year-old white female with history of IVDU presenting with left arm pain. Diagnosed with cellulitis and likely abscess. MRI shows a large abscess. Patient status post bedside I&D on 09/08. <Olga Roberts - 09/12/17 13:15> - Attending Attestation Patient seen, examined, and discussed this morning with resident team. I agree with assessment and management as documented with me. Left forearm abscess is much improved. This afternoon: At packing change today of left forearm abscess by physicians after Right elbow abscess I&D, wound was cleaned with lidocaine 1%. Healthy granulation tissue was noted, and the decision was to no longer pack the wound, as it was superficial. Silvadene with daily dressing changes was ordered. <Mali Womack - 09/12/17 20:47>
[2017-09-12] MEDS ORDERED: Morphine Inj 4 MG/ML Vial IV.PUSH ONE (14:15)
--- NOTE | 2017-09-12 16:04 | P.PCN ---
<Olga Proctor - Last Filed: 09/12/17 16:07> Date of procedure: 09/12/17 Pre-op diagnosis: Right forearm abscess Post-op diagnosis: same Procedure: Incision and drainage, wound culture Ativan 1 mg and morphine 4 mg IV was given 30 minutes before the procedure The procedure was explained and consents were signed Procedure: Incision and drainage Resident: Olga Proctor MD Attending: Mali Nayak MD Timeout 1500 Patient positioned appropriately, 5 cc of lidocaine without epinephrine was used as a local anesthetic. #15 blade scalpel was used for single incision. Blunt dissection of loculated adhesions was performed. Copious drainage of pus and serosanguineous fluid of about 50 mL was seen. Cultures obtained. Procedure tolerated without complications. Wound dressed with sterile 4 x 4 gauze and paper tape. Anesthesia: local Surgeon: Olga Proctor Technical Cable Jointer: Mali Montes Estimated blood loss (mL): 50 Pathology: other (wound culture sent) Condition: stable Disposition: no change <Mali Montes - Last Filed: 09/12/17 20:45> Procedure: Attending note: I was present for entire procedure. MALI MONTES MD
[2017-09-13] MEDS: Ketorolac Inj 30 MG/ML (IVP) Vial IV.PUSH SCH ×4 (02:10→20:38)
[2017-09-13] MEDS: oxyCODONE/Acetaminophen 10/325 Tablet PO PRN ×3 (02:14→14:54)
[2017-09-13] MEDS: Morphine Inj 4 MG/ML Vial IV.PUSH PRN ×5 (04:19→20:40)
[2017-09-13 07:53] LABS: Baso # (Auto) 0.1 th/mm3 (0.0-0.2); Baso % (Auto) 0.9 % (0.0-2.0); Eos # (Auto) 0.2 th/mm3 (0.0-0.4); Eos % (Auto) 3.9 % (0.0-4.0); Hematocrit 31.5 % (35.0-46.0); Hemoglobin 10.4 gm/dL (11.6-15.3); Lymph # (Auto) 2.6 th/mm3 (1.0-4.8); Lymph % (Auto) 42.3 % (9.0-44.0); Mean Corpuscular Hemoglobin 29.4 pg (27.0-34.0); Mean Corpuscular Volume 89.2 fL (80.0-100.0); Mean Platelet Volume 7.2 fL (7.0-11.0); Mono # (Auto) 0.5 th/mm3 (0.0-0.9); Neut # (Auto) 2.8 th/mm3 (1.8-7.7); Neut % (Auto) 44.9 % (16.0-70.0); Platelet Count 674 th/mm3 (150-450); Red Blood Count 3.53 mil/mm3 (4.00-5.30); Red Cell Distribution Width 14.3 % (11.6-17.2); White Blood Count 6.2 th/mm3 (4.0-11.0)
[2017-09-13 08:20] LABS: Albumin 2.5 g/dL (3.4-5.0); Anion Gap 8 meq/L (5-15); Aspartate Aminotransferase 10 U/L (15-37); Blood Urea Nitrogen 16 mg/dL (7-18); Calcium 8.5 mg/dL (8.5-10.1); Carbon Dioxide 29.2 meq/L (21.0-32.0); Chloride 103 meq/L (98-107); Glomerular Filtration Rate Greater Than 89 mL/min (>89); Glucose,Random 78 mg/dL (74-106); Potassium 4.3 meq/L (3.5-5.1); Sodium 140 meq/L (136-145)
[2017-09-13 08:22] LABS: Alanine Aminotransferase 11 U/L (10-53)
[2017-09-13 08:24] LABS: Alkaline Phosphatase 83 U/L (45-117); Total Protein 6.1 g/dL (6.4-8.2)
[2017-09-13] MEDS: Lactobacillus Acidophilus/L. Spores Tablet PO SCH ×3 (08:36→18:09)
[2017-09-13] MEDS: Senna/Docusate Sodium 8.6/50 MG Tablet PO SCH ×2 (08:37→20:40)
--- NOTE | 2017-09-13 16:35 | P.PNFP ---
Subjective Interval history: Patient was examined and seen at bedside this morning. She still complains of abdominal pain and nausea with associated body aches. She states that the pain in both her arms feel a little bit better today. She she has not used any anti- emetic Meds for nausea. Her last menstrual period was about 2 months ago. She doubts that this abdominal pain is due to withdrawal symptoms. She thinks that her abdominal pain could be the onset of her menstrual cycle. She denies any fevers, night sweats, chills, chest pain, shortness of breath, abdominal pain, urinary symptoms. <Olga Roberts - 09/13/17 16:35> Results - Labs Result diagrams: 09/13/17 06:56 09/13/17 06:56 <Mali Womack - 09/13/17 20:09> Abnormal lab results 09/13/17 09/13/17 Range/Units 06:56 06:56 RBC 3.53 L (4.00-5.30) mil/mm3 Hgb 10.4 L (11.6-15.3) gm/dL Hct 31.5 L (35.0-46.0) % Plt Count 674 H (150-450) th/mm3 Total Bilirubin 0.1 L (0.2-1.0) mg/dL AST 10 L (15-37) U/L Total Protein 6.1 L (6.4-8.2) g/dL Albumin 2.5 L (3.4-5.0) g/dL Short CBC 09/13/17 Range/Units 06:56 WBC 6.2 (4.0-11.0) th/mm3 Hgb 10.4 L (11.6-15.3) gm/dL Hct 31.5 L (35.0-46.0) % Plt Count 674 H (150-450) th/mm3 BMP 09/13/17 06:56 Sodium 140 Potassium 4.3 Chloride 103 Carbon Dioxide 29.2 BUN 16 Creatinine 0.73 Calcium 8.5 Liver Function 09/13/17 Range/Units 06:56 Total Bilirubin 0.1 L (0.2-1.0) mg/dL AST 10 L (15-37) U/L ALT 11 (10-53) U/L Alkaline Phosphatase 83 (45-117) U/L Albumin 2.5 L (3.4-5.0) g/dL <Mali Womack - 09/13/17 20:09> Abnormal lab results 09/13/17 09/13/17 Range/Units 06:56 06:56 RBC 3.53 L (4.00-5.30) mil/mm3 Hgb 10.4 L (11.6-15.3) gm/dL Hct 31.5 L (35.0-46.0) % Plt Count 674 H (150-450) th/mm3 Total Bilirubin 0.1 L (0.2-1.0) mg/dL AST 10 L (15-37) U/L Total Protein 6.1 L (6.4-8.2) g/dL Albumin 2.5 L (3.4-5.0) g/dL Short CBC 09/13/17 Range/Units 06:56 WBC 6.2 (4.0-11.0) th/mm3 Hgb 10.4 L (11.6-15.3) gm/dL Hct 31.5 L (35.0-46.0) % Plt Count 674 H (150-450) th/mm3 BMP 09/13/17 06:56 Sodium 140 Potassium 4.3 Chloride 103 Carbon Dioxide 29.2 BUN 16 Creatinine 0.73 Calcium 8.5 Liver Function 09/13/17 Range/Units 06:56 Total Bilirubin 0.1 L (0.2-1.0) mg/dL AST 10 L (15-37) U/L ALT 11 (10-53) U/L Alkaline Phosphatase 83 (45-117) U/L Albumin 2.5 L (3.4-5.0) g/dL <Olga Roberts - 09/13/17 16:35> Physical Exam Vital signs: Vital Signs 09/12/17 22:30 09/13/17 00:00 09/13/17 04:23 Temperature 98.8 F 98 F Pulse Rate 64 67 Respiratory Rate 17 18 18 Blood Pressure 101/62 105/65 Pulse Oximetry 97 96 09/13/17 06:00 09/13/17 08:00 09/13/17 12:00 Temperature 98 F 98 F 98.5 F Pulse Rate 60 56 L 64 Respiratory Rate 19 8 L 20 Blood Pressure 113/55 L 104/58 L Pulse Oximetry 98 99 98 09/13/17 16:00 Temperature 98.5 F Pulse Rate 76 Respiratory Rate 20 Blood Pressure 108/69 Pulse Oximetry 99 Intake & Output 09/13/17 09/13/17 09/14/17 06:59 18:59 06:59 Intake Total 1790 / 1790 1280 / 1280 Output Total 2 / 2 Balance 1790 / 1790 1278 / 1278 Intake: IV 200 / 200 200 / 200 Ancef Inj 1,000 MG In NS Inj 200 / 200 200 / 200 100 ML @ 200 mls/hr IV.SIG Q8H BRIE Rx#:[id number] Oral 1590 / 1590 1080 / 1080 Output: Urine 2 / 2 Other: # Voids 3 3 Date of Last Bowel Movement 09/11/17 09/10/17 # Bowel Movements 0 0 <MellissaKatina rameye - 09/13/17 20:09> Vital Signs 09/12/17 20:00 09/12/17 22:30 09/13/17 00:00 Temperature 98.8 F 98 F Pulse Rate 64 67 Respiratory Rate 17 17 18 Blood Pressure 101/62 105/65 Pulse Oximetry 97 96 09/13/17 04:23 09/13/17 06:00 09/13/17 08:00 Temperature 98 F 98 F Pulse Rate 60 56 L Respiratory Rate 18 19 8 L Blood Pressure 113/55 L Pulse Oximetry 98 99 09/13/17 12:00 Temperature 98.5 F Pulse Rate 64 Respiratory Rate 20 Blood Pressure 104/58 L Pulse Oximetry 98 Intake & Output 09/12/17 09/13/17 09/13/17 18:59 06:59 18:59 Intake Total 450 / 450 1790 / 1790 460 / 460 Output Total 2 / 2 Balance 450 / 450 1790 / 1790 458 / 458 Intake: IV 100 / 100 200 / 200 100 / 100 Ancef Inj 1,000 MG In NS Inj 100 / 100 200 / 200 100 / 100 100 ML @ 200 mls/hr IV.SIG Q8H BRIE Rx#:[id number] Oral 350 / 350 1590 / 1590 360 / 360 Output: Urine 2 / 2 Other: # Voids 2 3 Date of Last Bowel Movement 09/11/17 09/11/17 # Bowel Movements 0 <LaquaOlga - 09/13/17 16:35> Narrative: Well-appearing female, laying in bed, in no acute distress. <Olga Roberts 09/13/17 16:35> - Routine HEENT Exam Head: Present: normocephalic, atraumatic <Olga Roberts 09/13/17 16:35> - Routine Respiratory Exam Present: CTA bilaterally <Olga Roberts 09/13/17 16:35> - Routine Cardiovascular Exam Present: RRR, murmur <Olga Roberts 09/13/17 16:35> Comments: Grade 2 out of 3 systolic murmur appreciated over the left sternal border. <Olga Roberts 09/13/17 16:35> - Routine Abdominal Exam Present: soft, normoactive bowel sounds <Olga Roberts 09/13/17 16:35> Comments: Suprapubic tenderness to palpation. <Olga Roberts 09/13/17 16:35> - Routine Skin Exam Comments: Right forearm: 2 x 2 centimeter area of erythematous fluctuance. Located lateral to the antecubital fossa. 1 cm healed scab present from incision due to I&D yesterday. Tender to palpation and warm to the touch. Left forearm: 9 x 9 cm area of induration, no pus seen in the wound today. The wound is still erythematous. Incision site draining less serosanguineous fluid. Area is less tender to palpation and still warm to the touch. <Olga Roberts 09/13/17 16:35> Assessment and Plan - Assessment (1) Cellulitis of left arm Code(s): L03.114 - Cellulitis of left upper limb Status: Acute (2) Systolic murmur Code(s): R01.1 - Cardiac murmur, unspecified Status: Acute (3) Abdominal pain Code(s): R10.9 - Unspecified abdominal pain Status: Acute (4) IVDU (intravenous drug user) Code(s): F19.90 - Other psychoactive substance use, unspecified, uncomplicated Status: Chronic (5) UTI (urinary tract infection) Code(s): N39.0 - Urinary tract infection, site not specified Status: Resolved (6) Nutrition, metabolism, and development symptoms Code(s): R63.8 - Other symptoms and signs concerning food and fluid intake Status: Acute (7) DVT prophylaxis Status: Acute <Mali Womack - 09/13/17 20:09> (1) Cellulitis of left arm Code(s): L03.114 - Cellulitis of left upper limb Status: Acute Plan: 37-year-old female with history of IV drug use presenting with left arm pain with cellulitis and likely abscess. She had leukocytosis, neutrophil predominate, up to 15.9. Patient did not meet SIRS criteria on admission. However, she developed a fever and tachycardia later. Fluctuance was not noted on exam and imaging was not performed in ED. Patient is status post bedside I&D on 09/08 with about 200ml of pus drained. 09/10 Leukocytosis is decreasing, was at 7.5 from yesterday. 09/11: Pending a.m. labs. No fevers overnight. Vitals Stable. 09/12: WBC count increased from 7.5 to 8.5 overnight. Continue to monitor. MRI of left forearm showed a greater than 9 cm subcutaneous abscess about the medial aspect of the proximal forearm from surrounding the ulna without signal abnormality within the marrow of the ulna. There is evidence of some involvement of the adjacent dorsal musculature. -Bld cx NGTD (note that it was drawn after patient had received abx in ED) -wound culture grew heavy normal skin shelli -will de-escalate antibiotics as appropriate -Started Cefazolin 1g every 8 hours (09/10- ) Plan to switch to p.o. in anticipation of discharge. -Clindamycin 900 mg IV every 8 hours (09/07-09/10): Discontinued following wound culture results. -Zosyn 3.375 g IV every 6 hours (09/07-09/10): discontinued following wound culture results. -Patient has a high tolerance to opioids, will DC morphine pain scale post I&D and give Percocet with morphine as needed for breakthrough, can adjust as needed. -Tylenol as needed for fever. 09/13: I&D done successfully on 09/12. 50 mL of serosanguineous fluid and pus drained. Wound culture from right arm I&D (09/12): Staph coag positive. Considering that her white count is trending downward from 8.5 to 6.2 today. Vital signs stable. Patient is afebrile. Will continue on current antibiotics. Will consider switching to clindamycin if vital signs become worse overnight. -Continue to re-dress both wounds daily. Continue to apply silver sulfadiazine to left forearm wound. Patient is unable to be discharged due to unstable living situation and an open wound that needs frequent redressing. Case management was consulted and is aware of the need to provide a secure living situation for patient before discharge. Case management will organize patient to have a 3 day stay at the [facility]. Patient has contacted her friend who was hesitant to take her into his house after discharge. She will continue to ask him. Tried contacting Emily Villarreal her mother, with no response. Left a voicemail stating to call the [facility] call center and to page me directly. (2) Systolic murmur Code(s): R01.1 - Cardiac murmur, unspecified Status: Acute Plan: Grade 2 systolic murmur appreciated over the L sternal Border. With Hx of IVDU, Concerns for Endocarditis: No Splinter hemorrhages seen on PE. Echo Done on 09/[address] Parnell: No pathology and vegetations noted. (3) Abdominal pain Code(s): R10.9 - Unspecified abdominal pain Status: Acute Plan: Patient describes suprapubic abdominal pain with associated nausea this morning. Patient has no change in bowel movements. Denies any dysuria. Could possibly be due to withdrawal symptoms. Could be onset of menstrual cycle. Patient unsure of the last sexual encounter. Beta-hCG in ED was negative. Could potentially be positive now that it is a later date. Zofran 4 mg p.o. every 6 as needed. Beta hCG ordered. Monitor for withdrawal symptoms: Diaphoresis, tachycardia, abdominal pain, anxiety. (4) IVDU (intravenous drug user) Code(s): F19.90 - Other psychoactive substance use, unspecified, uncomplicated Status: Chronic Plan: Patient admits to using cocaine and heroin. Admitted to nursing staff that she was injecting meth as well. -UDS positive for opiates, amphetamines, cocaine -Will monitor for signs of withdrawal (5) UTI (urinary tract infection) Code(s): N39.0 - Urinary tract infection, site not specified Status: Resolved Plan: Patient reported painful urination and difficulty urinating on admission. UA on admission is positive for nitrate, trace leukocyte esterase, few bacteria -culture shows mixed shelli, probable contaminants Patient denies any urinary symptoms today. Now resolved. (6) Nutrition, metabolism, and development symptoms Code(s): R63.8 - Other symptoms and signs concerning food and fluid intake Status: Acute Plan: Fluids: tolerating po Electrolytes: monitor and replete as needed Nutrition: Regular diet GI Prophylaxis: None indicated at this time (7) DVT prophylaxis Status: Acute Plan: DVT Prophylaxis: Early ambulation. SCDs <Olga Roberts - 09/13/17 16:39> - Assessment and Plan 37-year-old white female with history of IVDU presenting with left arm pain. Diagnosed with cellulitis and likely abscess. MRI shows a large abscess. Patient status post bedside I&D on 09/08 (L arm) and 09/12 (R arm) <Olga Roberts - 09/13/17 16:35> - Attending Attestation Patient seen and examined this morning, discussed with resident team. I agree with assessment and management as documented and discussed with me. I was present for dressing change by RN today. Left forearm wound is healing well, with good granulation tissue. Silvadene applied. Right elbow abscess - incision gently repoened and bloody drainage expressed, although minimal. Anticipate discharge tomorrow. <Mali Womack - 09/13/17 20:09>
[2017-09-14] MEDS: oxyCODONE/Acetaminophen 10/325 Tablet PO PRN ×2 (00:39→09:54)
[2017-09-14] MEDS: Morphine Inj 4 MG/ML Vial IV.PUSH PRN ×2 (02:13→11:58)
[2017-09-14] MEDS: Ketorolac Inj 30 MG/ML (IVP) Vial IV.PUSH SCH ×2 (02:13→09:55)
[2017-09-14 08:51] LABS: Baso # (Auto) 0.1 th/mm3 (0.0-0.2); Baso % (Auto) 1.3 % (0.0-2.0); Eos # (Auto) 0.2 th/mm3 (0.0-0.4); Eos % (Auto) 3.7 % (0.0-4.0); Hematocrit 30.6 % (35.0-46.0); Hemoglobin 10.2 gm/dL (11.6-15.3); Lymph # (Auto) 2.5 th/mm3 (1.0-4.8); Lymph % (Auto) 42.6 % (9.0-44.0); Mean Corpuscular HGB Conc 33.4 % (32.0-36.0); Mean Corpuscular Hemoglobin 29.9 pg (27.0-34.0); Mean Corpuscular Volume 89.4 fL (80.0-100.0); Mean Platelet Volume 7.3 fL (7.0-11.0); Mono # (Auto) 0.5 th/mm3 (0.0-0.9); Mono % (Auto) 7.8 % (0.0-8.0); Neut # (Auto) 2.7 th/mm3 (1.8-7.7); Neut % (Auto) 44.6 % (16.0-70.0); Platelet Count 670 th/mm3 (150-450); Red Blood Count 3.42 mil/mm3 (4.00-5.30); Red Cell Distribution Width 14.6 % (11.6-17.2)
[2017-09-14 09:15] LABS: Albumin 2.4 g/dL (3.4-5.0); Anion Gap 7 meq/L (5-15); Aspartate Aminotransferase 11 U/L (15-37); Blood Urea Nitrogen 14 mg/dL (7-18); Calcium 8.4 mg/dL (8.5-10.1); Carbon Dioxide 28.7 meq/L (21.0-32.0); Chloride 104 meq/L (98-107); Glomerular Filtration Rate 80 mL/min (>89); Glucose,Random 84 mg/dL (74-106); Potassium 4.3 meq/L (3.5-5.1); Sodium 140 meq/L (136-145)
[2017-09-14 09:19] LABS: Alanine Aminotransferase 11 U/L (10-53); Alkaline Phosphatase 86 U/L (45-117)
[2017-09-14] MEDS: Lactobacillus Acidophilus/L. Spores Tablet PO SCH ×2 (09:54→12:30)
[2017-09-14] MEDS: Senna/Docusate Sodium 8.6/50 MG Tablet PO SCH (09:56)
--- NOTE | 2017-09-14 10:22 | P.PNFP ---
Subjective Interval history: Patient was seen and examined at bedside this morning. When asked how she was feeling overnight she says she is doing fine. Patient was able to talk to her mother yesterday and will be going to a sober living home, "[facility]". She states that she was in some pain overnight but was denied any pain medications. She also had associated chills overnight. States that she is not currently in pain today. Denies any chest pain, shortness of breath, abdominal pain, nausea, problems with urination or defecation. All questions were answered at bedside. <Olga Roberts - 09/14/17 10:21> Results - Labs Result diagrams: 09/14/17 08:01 09/14/17 08:01 <Mali Womack - 09/14/17 16:48> Abnormal lab results 09/14/17 09/14/17 Range/Units 08:01 08:01 RBC 3.42 L (4.00-5.30) mil/mm3 Hgb 10.2 L (11.6-15.3) gm/dL Hct 30.6 L (35.0-46.0) % Plt Count 670 H (150-450) th/mm3 Estimated GFR 80 L (>89) mL/min Calcium 8.4 L (8.5-10.1) mg/dL Total Bilirubin Less than 0.1 L (0.2-1.0) mg/dL AST 11 L (15-37) U/L Total Protein 6.0 L (6.4-8.2) g/dL Albumin 2.4 L (3.4-5.0) g/dL Short CBC 09/14/17 Range/Units 08:01 WBC 6.0 (4.0-11.0) th/mm3 Hgb 10.2 L (11.6-15.3) gm/dL Hct 30.6 L (35.0-46.0) % Plt Count 670 H (150-450) th/mm3 BMP 09/14/17 08:01 Sodium 140 Potassium 4.3 Chloride 104 Carbon Dioxide 28.7 BUN 14 Creatinine 0.81 Calcium 8.4 L Liver Function 09/14/17 Range/Units 08:01 Total Bilirubin Less than 0.1 L (0.2-1.0) mg/dL AST 11 L (15-37) U/L ALT 11 (10-53) U/L Alkaline Phosphatase 86 (45-117) U/L Albumin 2.4 L (3.4-5.0) g/dL <Mali Womack - 09/14/17 16:48> Abnormal lab results 09/14/17 09/14/17 Range/Units 08:01 08:01 RBC 3.42 L (4.00-5.30) mil/mm3 Hgb 10.2 L (11.6-15.3) gm/dL Hct 30.6 L (35.0-46.0) % Plt Count 670 H (150-450) th/mm3 Estimated GFR 80 L (>89) mL/min Calcium 8.4 L (8.5-10.1) mg/dL Total Bilirubin Less than 0.1 L (0.2-1.0) mg/dL AST 11 L (15-37) U/L Total Protein 6.0 L (6.4-8.2) g/dL Albumin 2.4 L (3.4-5.0) g/dL Short CBC 09/14/17 Range/Units 08:01 WBC 6.0 (4.0-11.0) th/mm3 Hgb 10.2 L (11.6-15.3) gm/dL Hct 30.6 L (35.0-46.0) % Plt Count 670 H (150-450) th/mm3 BMP 09/14/17 08:01 Sodium 140 Potassium 4.3 Chloride 104 Carbon Dioxide 28.7 BUN 14 Creatinine 0.81 Calcium 8.4 L Liver Function 09/14/17 Range/Units 08:01 Total Bilirubin Less than 0.1 L (0.2-1.0) mg/dL AST 11 L (15-37) U/L ALT 11 (10-53) U/L Alkaline Phosphatase 86 (45-117) U/L Albumin 2.4 L (3.4-5.0) g/dL <ArmandoOlga - 09/14/17 10:21> Physical Exam Vital signs: Vital Signs 09/13/17 20:50 09/14/17 00:00 09/14/17 03:20 Temperature 98 F 97.7 F 98.9 F Pulse Rate 65 60 69 Respiratory Rate 19 18 20 Blood Pressure 108/60 110/59 L 115/62 Pulse Oximetry 96 98 96 09/14/17 08:00 09/14/17 12:00 Temperature 97.7 F 97.9 F Pulse Rate 67 68 Respiratory Rate 20 21 Blood Pressure 108/56 L 111/60 Pulse Oximetry 97 98 Intake & Output 09/13/17 09/14/17 09/14/17 18:59 06:59 18:59 Intake Total 1280 / 1280 2375 / 2375 Output Total 2 / 2 Balance 1278 / 1278 2375 / 2375 Weight 57 kg Intake: IV 200 / 200 100 / 100 Ancef Inj 1,000 MG In NS Inj 200 / 200 100 / 100 100 ML @ 200 mls/hr IV.SIG Q8H BRIE Rx#:[id number] Oral 1080 / 1080 2275 / 2275 Output: Urine 2 / 2 Other: # Voids 3 4 Date of Last Bowel Movement 09/10/17 # Bowel Movements 0 0 <Mali Womack - 09/14/17 16:48> Vital Signs 09/13/17 12:00 09/13/17 16:00 09/13/17 20:50 Temperature 98.5 F 98.5 F 98 F Pulse Rate 64 76 65 Respiratory Rate 20 20 19 Blood Pressure 104/58 L 108/69 108/60 Pulse Oximetry 98 99 96 09/14/17 00:00 09/14/17 03:20 Temperature 97.7 F 98.9 F Pulse Rate 60 69 Respiratory Rate 18 20 Blood Pressure 110/59 L 115/62 Pulse Oximetry 98 96 Intake & Output 09/13/17 09/14/17 09/14/17 18:59 06:59 18:59 Intake Total 1280 / 1280 2375 / 2375 Output Total 2 / 2 Balance 1278 / 1278 2375 / 2375 Weight 57 kg Intake: IV 200 / 200 100 / 100 Ancef Inj 1,000 MG In NS Inj 200 / 200 100 / 100 100 ML @ 200 mls/hr IV.SIG Q8H BRIE Rx#:[id number] Oral 1080 / 1080 2275 / 2275 Output: Urine 2 / 2 Other: # Voids 3 4 Date of Last Bowel Movement 09/10/17 # Bowel Movements 0 0 <George Robertsa - 09/14/17 10:21> Narrative: Well-appearing female, sleeping comfortably in bed, in no acute distress. <Olga Roberts 09/14/17 10:21> - Routine HEENT Exam Head: Present: normocephalic, atraumatic <Olga Roberts 09/14/17 10:21> - Routine Respiratory Exam Present: CTA bilaterally <Olga Roberts 09/14/17 10:21> - Routine Cardiovascular Exam Present: RRR, murmur <Olga Roberts 09/14/17 10:21> Comments: Grade 3 systolic murmur heard over the left sternal border. <Olga Roberts 09/14/17 10:21> - Routine Abdominal Exam Present: soft, normoactive bowel sounds. Absent: tenderness, distended <Olga Roberts 09/14/17 10:21> - Routine Skin Exam Comments: Right forearm:2 x 2 centimeter area of erythematous fluctuance. Located lateral to the antecubital fossa. 1 cm healed scab present from incision and drainage on 09/12. The area is warm to the touch and tender to palpation. Incision was gently reopened and bloody drainage was expressed, no pus appreciated. Left forearm: 9 x 9 cm area of induration, copious amount of pus seen in wound today. The wound is still erythematous. Draining serosanguineous fluid and pus. Area is tender to palpation and still warm to the touch. <Olga Roberts 09/14/17 10:21> Assessment and Plan - Assessment (1) Abscess of right arm Code(s): L02.413 - Cutaneous abscess of right upper limb Status: Acute (2) Cellulitis of left arm Code(s): L03.114 - Cellulitis of left upper limb Status: Acute (3) Systolic murmur Code(s): R01.1 - Cardiac murmur, unspecified Status: Acute (4) Abdominal pain Code(s): R10.9 - Unspecified abdominal pain Status: Resolved (5) IVDU (intravenous drug user) Code(s): F19.90 - Other psychoactive substance use, unspecified, uncomplicated Status: Chronic (6) UTI (urinary tract infection) Code(s): N39.0 - Urinary tract infection, site not specified Status: Resolved (7) Nutrition, metabolism, and development symptoms Code(s): R63.8 - Other symptoms and signs concerning food and fluid intake Status: Acute (8) DVT prophylaxis Status: Acute <Mali Womack - 09/14/17 16:48> (1) Abscess of right arm Code(s): L02.413 - Cutaneous abscess of right upper limb Status: Acute Plan: 2 x 2 centimeter area of erythematous fluctuance that is tender to palpation and warm to the touch. Status post I&D on 09/12. 50 mL of serosanguineous fluid and pus drained. Wound culture from right arm I&D (09/12): Staph coag positive. Patient expresses chills overnight. Vital signs stable. Abscess seems to still have areas of fluctuance, incision gently reopened and bloody drainage expressed. Unable to fully drain. Will do I&D today. Due to the results from blood culture, and after assessment of abscesses today. Abscess not improving. Will switch from cefazolin to clindamycin IV. Patient is allergic to vancomycin. Lactobacillus added for GI prophylaxis. (2) Cellulitis of left arm Code(s): L03.114 - Cellulitis of left upper limb Status: Acute Plan: 37-year-old female with history of IV drug use presenting with left arm pain with cellulitis and likely abscess. She had leukocytosis, neutrophil predominate, up to 15.9. Patient did not meet SIRS criteria on admission. However, she developed a fever and tachycardia later. Fluctuance was not noted on exam and imaging was not performed in ED. Patient is status post bedside I&D on 09/08 with about 200ml of pus drained. 09/10 Leukocytosis is decreasing, was at 7.5 from yesterday. 09/11: Pending a.m. labs. No fevers overnight. Vitals Stable. 09/12: WBC count increased from 7.5 to 8.5 overnight. Continue to monitor. MRI of left forearm showed a greater than 9 cm subcutaneous abscess about the medial aspect of the proximal forearm from surrounding the ulna without signal abnormality within the marrow of the ulna. There is evidence of some involvement of the adjacent dorsal musculature. -Bld cx NGTD (note that it was drawn after patient had received abx in ED) -wound culture grew heavy normal skin shelli -will de-escalate antibiotics as appropriate -Started Cefazolin 1g every 8 hours (09/10- ) Plan to switch to p.o. in anticipation of discharge. -Clindamycin 900 mg IV every 8 hours (09/07-09/10): Discontinued following wound culture results. -Zosyn 3.375 g IV every 6 hours (09/07-09/10): discontinued following wound culture results. -Patient has a high tolerance to opioids, will DC morphine pain scale post I&D and give Percocet with morphine as needed for breakthrough, can adjust as needed. -Tylenol as needed for fever. 09/14: Wound of the left arm is filled with copious amounts of pus today. Patient had chills overnight. Considering wound culture results, concerns of possible MRSA infection. We will switch antibiotics from cefazolin to clindamycin 900 mg every 8 IV. CBC pending. Continue to monitor vital signs. -Continue to re-dress both wounds daily. -Continue to apply silver sulfadiazine to left forearm wound. Patient will be discharged to a sober living home called "[facility] (3) Systolic murmur Code(s): R01.1 - Cardiac murmur, unspecified Status: Acute Plan: Grade 2 systolic murmur appreciated over the L sternal Border. With Hx of IVDU, Concerns for Endocarditis: No Splinter hemorrhages seen on PE. Echo Done on 09/[address] Parnell: No pathology and vegetations noted. (4) Abdominal pain Code(s): R10.9 - Unspecified abdominal pain Status: Resolved Plan: Patient has no abdominal pain this morning. Resolved. Zofran 4 mg p.o. every 6 as needed. Beta hCG pending. Monitor for withdrawal symptoms: Diaphoresis, tachycardia, abdominal pain, anxiety. (5) IVDU (intravenous drug user) Code(s): F19.90 - Other psychoactive substance use, unspecified, uncomplicated Status: Chronic Plan: Patient admits to using cocaine and heroin. Admitted to nursing staff that she was injecting meth as well. -UDS positive for opiates, amphetamines, cocaine -Will monitor for signs of withdrawal (6) UTI (urinary tract infection) Code(s): N39.0 - Urinary tract infection, site not specified Status: Resolved Plan: Patient reported painful urination and difficulty urinating on admission. UA on admission is positive for nitrate, trace leukocyte esterase, few bacteria -culture shows mixed shelli, probable contaminants Patient denies any urinary symptoms today. Now resolved. (7) Nutrition, metabolism, and development symptoms Code(s): R63.8 - Other symptoms and signs concerning food and fluid intake Status: Acute Plan: Fluids: tolerating po Electrolytes: monitor and replete as needed Nutrition: Regular diet GI Prophylaxis: None indicated at this time (8) DVT prophylaxis Status: Acute Plan: DVT Prophylaxis: Early ambulation. SCDs <Olga Roberts - 09/14/17 10:48> - Assessment and Plan 37-year-old white female with history of IVDU presenting with left arm pain. Diagnosed with cellulitis and likely abscess. MRI shows a large abscess. Patient status post bedside I&D on 09/08 (L arm) and 09/12 (R arm) <Olga Roberts - 09/14/17 10:49> - Attending Attestation Patient seen and examined this morning, discussed with resident team. I agree with assessment and management as documented and discussed with me. Abscess near right elbow seems a little more fluctuant today - will repeat I&D. Left forearm wound healing well - no pus; silvadene noted on wound. Discharge to sober living this afternoon, after repeat I&D. <Mali Womack - 09/14/17 16:48>
--- NOTE | 2017-09-14 13:39 | P.PCN ---
<Olga Proctor - Last Filed: 09/14/17 13:40> Date of procedure: 09/14/17 Pre-op diagnosis: right forearm abscess Post-op diagnosis: same Procedure: Incision and drainage Morphine 4 mg IV was given 30 minutes before the procedure The procedure was explained and consents were signed Procedure: Incision and drainage Resident: Olga Proctor MD Attending: Mali Womack MD Timeout 1300 Patient positioned appropriately, 5 cc of lidocaine without epinephrine was used as a local anesthetic. #15 blade scalpel was used for single incision. Blunt dissection of loculated adhesions was performed. Drainage of pus and serosanguineous fluid of about 40 mL was seen. Procedure tolerated without complications. Wound dressed with sterile 4 x 4 gauze and paper tape. Surgeon: Olga Proctor Can Top Setter: Mali Womakc Estimated blood loss (mL): 40 Pathology: none sent Condition: stable Disposition: no change <Mali Womack - Last Filed: 09/14/17 16:50> Procedure: Attending note: I was present for entire procedure. MALI WOMACK MD
--- NOTE | 2017-09-15 11:57 | P.DS ---
Date of admission: 09/07/17 21:12 Primary care physician: No Primary Care Physician Brief History from admission: Ms. Contreras is a 37-year-old white female with a past medical history of IV drug use presenting today with left arm pain. She states that she started having excruciating pain in that arm about 1-2 days ago. She originally thought she that she had an abscess. She used heroin in that arm 2 days ago. She uses it daily. She last used yesterday. She usually injects in her right arm wherever there is an open area. She states that the pain was preceded by swelling and redness a few days before. She reports fevers/chills since last night, night sweats, racing heart. She also states that she has had left-sided chest pain, but is unable to describe it due to her drifting in and out of sleep. PMH: none PSH: sinus surgery Meds: none FHx Mother- healthy father- healthy [place]SH [place] Alcohol- none Cigarettes- 1 ppd since 18yo Illicit- cocaine, heroin DS: Diagnosis - Discharge Diagnosis (1) Abscess of right arm Status: Acute (2) Cellulitis of left arm Status: Acute (3) Systolic murmur Status: Acute (4) Abdominal pain Status: Resolved (5) IVDU (intravenous drug user) Status: Chronic (6) UTI (urinary tract infection) Status: Resolved (7) Nutrition, metabolism, and development symptoms Status: Acute (8) DVT prophylaxis Status: Acute DS: Medications - Discharge Medications Prescriptions: sulfamethoxazole-trimethoprim [Bactrim DS] 1 tab PO BID #10 tab DS: Summary Hospital Course: 37-year-old white female with history of IVDU (cocaine/heroin) presented to hospital with left arm pain and burning with urination. She had leukocytosis, neutrophil predominate, up to 15.9. UA was positive for nitrate, trace leukocyte esterase, few bacteria. Patient did not meet SIRS criteria on admission. However, she developed a fever and tachycardia later. L arm cellulitis course: MRI of the left arm show a > 9 cm large abscess. Was initially placed on clindamycin 900 mg IV every 8 and Zosyn 3.375 g IV every 6 on admission. Surgery was consulted and recommended I&D which was done on 09/08 with about 200ml of pus drained. Wound cultures were sent and grew normal shelli. Clindamycin and Zosyn were discontinued on day 3 of ab and patient was started on cefazolin 1 g every 8 IV. The left wound was packed and redressed daily, improved over the course of her hospital stay. On day 6 of her hospital stay, her left arm wound was healing well and packing was removed, Silver sulfadiazine cream was applied to the left arm wound and redress daily. Her urinary symptoms had resolved. R arm cellulitis course: On day 5 of her hospital stay, patient developed a small right arm abscess. I&D was done successfully on right abscess, draining 50 mL of pus and serosanguineous fluid, wound cultures were sent. Wound cultures came back positive for staph aureus. Patient continued to remain afebrile, white blood cell count was normal. She remained on cefazolin. On day 6 of her hospital stay, the right arm abscess seemed to have grown in size. Another I&D was done successfully on right abscess. Minimal amounts of pus and serosanguineous fluid was drained (20ml). Systolic murmur: A systolic murmur was appreciated on admission. Echo was done during hospital course and had no valvular pathology. UTI: Resolved over hospital course with Bactrim. Discharge: Patient was discharged to sober living home. She was discharged on Bactrim DS twice daily for 5 days. Instructed to continue to clean both wounds and redress daily. Provided Silver sulfadiazine cream to place on L wound. - Time Spent with Patient Total time spent providing and/or coordinating discharge services: - Quality: VTE Deep Vein Thrombosis/Pulmonary Embolism Present on Admission: No Exam Vital signs: Vital Signs 09/14/17 12:00 Temperature 97.9 F Pulse Rate 68 Respiratory Rate 21 Blood Pressure 111/60 Pulse Oximetry 98 Intake & Output 09/14/17 09/15/17 09/15/17 18:59 06:59 18:59 Intake Total 460 / 460 Balance 460 / 460 Intake: IV 100 / 100 Ancef Inj 1,000 MG In NS Inj 100 / 100 100 ML @ 200 mls/hr IV.SIG Q8H BRIE Rx#:[id number] Oral 360 / 360 Other: # Voids 2 Date of Last Bowel Movement 09/14/17 Results Procedures completed during hospitalization: I&D of left forearm abscess done on 09/08: 200 mL of pus and serosanguineous fluid was drained. Ultracet obtained and was positive for normal skin shelli. I&D of right forearm abscess done on 09/12: 50 mL of pus and serosanguineous fluid was drained. Cultures obtained and was positive for staph aureus. I&D of right forearm abscess done on 09/13: Of pus and serosanguineous fluid was drained. Cultures not obtained. - Impressions ITS Impressions Forearm MRI 09/07/17 00:00 CONCLUSION: 1. Greater than 9 cm subcutaneous abscess about the medial aspect of the proximal forearm surrounding the ulna without signal abnormality within the marrow of the ulna. There is evidence of some involvement of the adjacent dorsal musculature. Discharge Plan - Discharge Disposition Patient Disposition: 01 Discharge Home - Discharge Condition Condition: Stable - Discharge Order Discharge Orders: Discharge Order (Routine); Ordered 09/14/17 Ordered By: Olga Roberts - Discharge Details Anticipated Discharge Date: 09/14/17 Discharge Comment: pt has ride to sober living house. - Physicians Team Primary Care Provider: Primary Care Physici,No Attending Provider: Mali Womack Other Providers: Kodak Morillo MD
== END 2017-09-14 14:42 | disposition home or self-care (01) ==
LOC: NEDA 07:33 → NEPE 07:33 → NEDH 15:58 → NEPHCDU 18:17 → N05 09-09 17:37
PROVIDERS: ADMIT Family Medicine; ATTEND Family Medicine

== ENCOUNTER 2017-12-29 10:40 | Observation (INO) ==
[2017-12-29] MEDS ORDERED: Sod Chloride 0.9% Inj 1,000 ML IV.SIG ONE (10:51)
[2017-12-29] MEDS ORDERED: Naloxone Inj 0.4 MG/ML Vial IV.PUSH ONE (10:51)
--- NOTE | 2017-12-29 10:57 | ED ---
HPI General Chief Complaint: Overdose Stated Complaint: Poss OD Time Seen by Provider: 12/29/17 10:51 History of Present Illness HPI Narrative: The patient was seen and examined in the presence of the nurse. This is a 37-year-old IV drug user who is homeless. She walked into his [facility] pharmacy and went into the bathroom and injected heroin. Staff found her with decreased responsiveness and called paramedics. She was given 1 dose of Narcan. She is not cooperative. She cannot provide any useful history or review of systems other than to admit that she injected heroin. She denies suicidal ideation or injecting other substances or taking any other oral medicines. Related Data Home Medications Medication Instructions Recorded Confirmed No Known Home Medications 11/23/17 12/29/17 Allergies Allergy/AdvReac Type Severity Reaction Status Date / Time vancomycin Allergy Severe Hives Verified 09/07/17 18:37 Review of Systems ROS Unobtainable ROS Unobtainable: unobtainable due to mental status PMFSH Social History Social History Substance History: Active Abuse Second Hand Smoke Exposure: Yes Smoking Status: Current every day smoker Tobacco Type: Cigarettes How Often Do You Have a Drink Containing Alcohol: Monthly or less Recent Travel in [facility] within the Last 8 Weeks: No Recent Out of Country Travel within the Last 8 Weeks: No Substance Abuse Detail Heroin: Substance Use Status: Active Route Used Substance Abuse: Intravenously Crack/Cocaine: Substance Use Status: Active Route Used Substance Abuse: Intravenously Methamphetamine: Substance Use Status: Active Route Used Substance Abuse: Intravenously Immunization History Tetanus Immunization: <5 Years Exam Narrative Exam Narrative: GENERAL: Sedated and disheveled well-developed patient in no apparent distress. SKIN: Focused skin assessment reveals no rash. There are some areas on her arms which are fresh injection sites. Skin is Warm and dry. No obvious infection noted HEAD: Atraumatic. Normocephalic. EYES: Pupils equal and round. No scleral icterus. No injection or drainage. ENT: No nasal bleeding or discharge. Mucous membranes pink and moist. NECK: Trachea midline. No JVD. CARDIOVASCULAR: Regular rate and rhythm. No murmur appreciated. RESPIRATORY: No accessory muscle use. Clear to auscultation. Breath sounds equal bilaterally. GASTROINTESTINAL: Abdomen soft, non-tender, nondistended. Hepatic and splenic margins not palpable. MUSCULOSKELETAL: No obvious deformities. No clubbing. No cyanosis. No edema. NEUROLOGICAL: Looking around but acting drowsy and sedated. No obvious cranial nerve deficits. Does not cooperate for motor strength or sensation testing. Slurred speech. PSYCHIATRIC: Lethargic and drowsy mood and affect; insight and judgment poor. Course Initial Documented Vital Signs Temperature 98.3 F 12/29/17 10:49 Pulse Rate 87 12/29/17 10:49 Respiratory Rate 16 12/29/17 10:49 Blood Pressure 110/60 12/29/17 10:49 Pulse Oximetry 100 12/29/17 10:49 Last Documented Vital Signs Temperature 98.3 F 12/29/17 10:49 Pulse Rate 80 12/29/17 13:30 Respiratory Rate 17 12/29/17 13:30 Blood Pressure 107/67 12/29/17 13:30 Pulse Oximetry 97 12/29/17 13:30 Medical Decision Making MDM Narrative Medical decision making narrative: This is a 37-year-old who became altered after injecting heroin. Giving her second dose of Narcan and some IV fluid. Labs have been sent. Will monitor closely for airway control. I have observe this patient for several hours. Now about 3.5 hours and she is still very altered and not stable for discharge. She will arouse to loud voice but then dozes off again. I do not think she needs airway intervention or ICU management at this time but I think she should be hospitalized as an observation given her current mental status due to her heroin overdose. General labs revealed mild anemia and slight LFT elevation. Discussed with the hospitalist. She has not had any fever Medical Screen Exam Complete: Yes Emergency Medical Condition: Yes Lab Data Lab results reviewed: Yes I reviewed the patient's lab results. Lab results narrative: Has mild anemia. Metabolic studies reasonably normal. LFTs have mild elevation Result diagrams: 12/29/17 11:02 12/29/17 11: Lab Results 12/29/17 12/29/17 12/29/17 Range/Units 11: 11: 11: WBC 6.7 (4.0-11.0) th/mm3 RBC 3.46 L (4.00-5.30) mil/mm3 Hgb 10.8 L (11.6-15.3) gm/dL Hct 32.0 L (35.0-46.0) % MCV 92.3 (80.0-100.0) fL MCH 31.2 (27.0-34.0) pg MCHC 33.8 (32.0-36.0) % RDW 16.2 (11.6-17.2) % Plt Count 310 (150-450) th/mm3 MPV 7.6 (7.0-11.0) fL Neut % (Auto) 58.1 (16.0-70.0) % Lymph % (Auto) 30.5 (9.0-44.0) % [place] % (Auto) 9.2 H (0.0-8.0) % Eos % (Auto) 1.7 (0.0-4.0) % Baso % (Auto) 0.5 (0.0-2.0) % Neut # (Auto) 3.9 (1.8-7.7) th/mm3 Lymph # (Auto) 2.0 (1.0-4.8) th/mm3 Ste[place]s # (Auto) 0.6 (0.0-0.9) th/mm3 Eos # (Auto) 0.1 (0.0-0.4) th/mm3 Baso # (Auto) 0.0 (0.0-0.2) th/mm3 WBC Differential . Differential Comment Auto diff final Sodium 144 (136-145) meq/L Potassium 3.4 L (3.5-5.1) meq/L Chloride 109 H (98-107) meq/L Carbon Dioxide 27.3 (21.0-32.0) meq/L Anion Gap 8 (5-15) meq/L BUN 8 (7-18) mg/dL Creatinine 0.81 (0.50-1.00) mg/dL Estimated GFR 80 L (>89) mL/min Random Glucose 83 (74-106) mg/dL Calcium 7.7 L (8.5-10.1) mg/dL Total Bilirubin 0.3 (0.2-1.0) mg/dL AST 127 H (15-37) U/L ALT 228 H (10-53) U/L Alkaline Phosphatase 115 (45-117) U/L Total Protein 6.4 (6.4-8.2) g/dL Albumin 3.0 L (3.4-5.0) g/dL Beta HCG, Quant Less than 1 (0-5) mIU/mL Salicylates 2.2 L (2.8-20.0) mg/dL Acetaminophen Less than 2.0 L (10.0-30.0) mcg/mL Serum Alcohol Less than 3 (0-5) mg/dL ECG Data EKG Prior to Arrival: No Attestation: I personally reviewed and interpreted this ECG as follows: Prior ECG tracings: not available for review Interpretation: EKG shows a sinus rhythm at 85. AR interval is [address] elevation or ectopy. [place] is normal. Discharge Plan Discharge Disposition Patient Disposition: 30 Still Patient Discharge Details Diagnosis: Drug overdose Physicians Team ED Provider: Juan David Kam Primary Care Provider: UNKNOWN, Rxs /Orders / Referrals /Forms Prescriptions: No Action No Known Home Medications RF: 0 Discharge Interventions Interventions: Vital Signs Last Done: 12/29/17 13:30 Status ED Status: With Doctor
[2017-12-29 11:39] LABS: Baso % (Auto) 0.5 % (0.0-2.0); Eos # (Auto) 0.1 th/mm3 (0.0-0.4); Eos % (Auto) 1.7 % (0.0-4.0); Hemoglobin 10.8 gm/dL (11.6-15.3); Lymph % (Auto) 30.5 % (9.0-44.0); Mean Corpuscular HGB Conc 33.8 % (32.0-36.0); Mean Corpuscular Hemoglobin 31.2 pg (27.0-34.0); Mean Corpuscular Volume 92.3 fL (80.0-100.0); Mean Platelet Volume 7.6 fL (7.0-11.0); Mono # (Auto) 0.6 th/mm3 (0.0-0.9); Mono % (Auto) 9.2 % (0.0-8.0); Neut # (Auto) 3.9 th/mm3 (1.8-7.7); Neut % (Auto) 58.1 % (16.0-70.0); Platelet Count 310 th/mm3 (150-450); Red Blood Count 3.46 mil/mm3 (4.00-5.30); Red Cell Distribution Width 16.2 % (11.6-17.2); White Blood Count 6.7 th/mm3 (4.0-11.0)
[2017-12-29 12:10] LABS: Alanine Aminotransferase 228 U/L (10-53); Anion Gap 8 meq/L (5-15); Aspartate Aminotransferase 127 U/L (15-37); Blood Urea Nitrogen 8 mg/dL (7-18); Calcium 7.7 mg/dL (8.5-10.1); Carbon Dioxide 27.3 meq/L (21.0-32.0); Chloride 109 meq/L (98-107); Glomerular Filtration Rate 80 mL/min (>89); Glucose,Random 83 mg/dL (74-106); Potassium 3.4 meq/L (3.5-5.1); Sodium 144 meq/L (136-145)
[2017-12-29 12:15] LABS: Alkaline Phosphatase 115 U/L (45-117); Total Protein 6.4 g/dL (6.4-8.2)
[2017-12-29] MEDS ORDERED: Acetaminophen 325 MG Tablet PO PRN (13:58)
[2017-12-29] MEDS ORDERED: Bisacodyl 10 MG Supp RECTAL PRN (13:58)
--- NOTE | 2017-12-29 14:56 | P.HPIM ---
[facility] Physician: UNKNOWN Chief Complaint: Overdose History of Present Illness: 37-year-old active IV drug user who is homeless brought in by EMS for apparent overdose. Patient reportedly walked into [facility] and went into the bathroom to inject heroin. She was found lethargic by staff and EMS was called. She was given 1 dose of Narcan. On my evaluation, the patient remains lethargic and cannot contribute to the history. History from the EMR reviewed. Unfortunately the patient has had repeated admission related to IV drug use. Review of Systems unobtainable due to mental status PMFSH - History History Provided By: Patient, Concessions Manager / EMT - Medical History Medical History: Medical History (Last Reviewed 12/29/17 @ 14:52 by Jocelin Guy MD) IV drug abuse - Surgical History Surgical History: Surgical History (Last Reviewed 12/29/17 @ 14:52 by Jocelin Guy MD) Hx of sinus surgery - Social History I have reviewed the patient's Social History: Yes - Tobacco History Second Hand Smoke Exposure: Yes Tobacco Use In Past 30 Days: Yes Smoking Status: Current every day smoker Tobacco Type: Cigarettes - Alcohol History How Often Do You Have a Drink Containing Alcohol: Monthly or less - Substance Use History Substance History: Active Abuse - Substance Use Type Heroin Status: Active Route Used: Intravenously Crack/Cocaine Status: Active Route Used: Intravenously Methamphetamine Status: Active Route Used: Intravenously - Travel History Recent Travel in the [place] Within the Last 8 Weeks: No Recent Travel Out of the Country Within the Last 8 Weeks: No - Immunization History Tetanus Immunization: <5 Years Medications and Allergies Active Medications: Active Medications Acetaminophen (Tylenol) 650 mg PO Q4H PRN PRN Reason: Temp > 100.4 Al Hydroxide/Mg Hydroxide (Milk Of Magnesia Liq) 30 ml PO Q12H PRN PRN Reason: Mild Constipation Bisacodyl (Dulcolax Supp) 10 mg RECTAL DAILY PRN PRN Reason: SEVERE CONSITIPATION Sodium Chloride (Ns Inj) 1,000 mls @ 100 mls/hr IV.CONT .Q10H BRIE Lactulose (Lactulose Liq) 30 ml PO DAILY PRN PRN Reason: SEVERE CONSITIPATION Ondansetron HCl (Zofran Inj) 4 mg IV.PUSH Q6H PRN PRN Reason: NAUSEA OR VOMITING Senna/Docusate Sodium (Miguelina-Colace) 1 tab PO BID BRIE Sennosides (Senokot) 17.2 mg PO Q12H PRN PRN Reason: Moderate Constipation Allergies Allergy/AdvReac Type Severity Reaction Status Date / Time vancomycin Allergy Severe Hives Verified 09/07/17 18:37 Home Medications Medication Instructions Recorded Confirmed Type No Known Home Medications 11/23/17 12/29/17 History Exam Vital signs: Vital Signs 12/29/17 10:49 12/29/17 13:30 Temperature 98.3 F Pulse Rate 87 80 Respiratory Rate 16 17 Blood Pressure 110/60 107/67 Pulse Oximetry 100 97 Intake & Output 12/28/17 12/29/17 12/29/17 18:59 06:59 18:59 Intake Total 1000 / 1000 Balance 1000 / 1000 Weight 61.235 kg Intake: IV 1000 / 1000 NS Inj 1,000 ML @ Wide Open IV. 1000 / 1000 SIG BOLUS ONE Rx#:[id number] Narrative: GENERAL: Patient is lethargic, briefly wake up to loud voice. CARDIOVASCULAR: Normal rate and regular rhythm. 2 out of 6 [place]. RESPIRATORY: Breath sounds equal and clear to auscultation bilaterally. GASTROINTESTINAL: Abdomen soft, non-tender, non-distended. Normal active bowel sounds MUSCULOSKELETAL: Extremities without cyanosis, or edema. NEURO: Lethargic. Moves all extremities spontaneously PSYCH: Calm Results - Labs CBC & Chem 7: 12/29/17 11:02 12/29/17 11:02 Labs: Short CBC 12/29/17 Range/Units 11:02 WBC 6.7 (4.0-11.0) th/mm3 Hgb 10.8 L (11.6-15.3) gm/dL Hct 32.0 L (35.0-46.0) % Plt Count 310 (150-450) th/mm3 BMP 12/29/17 11:02 Sodium 144 Potassium 3.4 L Chloride 109 H Carbon Dioxide 27.3 BUN 8 Creatinine 0.81 Calcium 7.7 L Liver Function 12/29/17 Range/Units 11:02 Total Bilirubin 0.3 (0.2-1.0) mg/dL AST 127 H (15-37) U/L ALT 228 H (10-53) U/L Alkaline Phosphatase 115 (45-117) U/L Albumin 3.0 L (3.4-5.0) g/dL Caprini VTE Risk Assessment Caprini VTE Risk Assessment: No/Low Risk (score <= 1) Caprini Risk Assessment Model: Point Value = 1 Point Value = 2 Point Value = 3 Point Value = 5 Age 41-60 Minor surgery BMI > 25 kg/m2 Swollen legs Varicose veins or History of unexplained or recurrent spontaneous Oral contraceptives or hormone replacement Sepsis (< 1 month) Serious lung disease, including pneumonia (< 1 month) Abnormal pulmonary function Acute myocardial infarction Congestive heart failure (< 1 month) History of inflammatory bowel disease Medical patient at bed rest Age 61-74 Arthroscopic surgery Major open surgery (> 45 min) Laparoscopic surgery (> 45 min) Malignancy Confined to bed (> 72 hours) Immobilizing plaster cast Central venous access Age >= 75 History of VTE Family history of VTE Factor V Leiden Prothrombin [id number] Lupus anticoagulant Anticardiolipin antibodies Elevated serum homocysteine Heparin-induced thrombocytopenia Other congenital or acquired thrombophilia Stroke (< 1 month) Elective arthroplasty Hip, pelvis, or leg fracture Acute spinal cord injury (< 1 month) Prophylaxis Regimen: Total Risk Factor Score Risk Level Prophylaxis Regimen 0-1 Low Early ambulation 2 Moderate Order ONE of the following: *Sequential Compression Device (SCD) *Heparin 5000 units SQ BID 3-4 Higher Order ONE of the following medications: *Heparin 5000 units SQ TID *Enoxaparin/Lovenox 40 mg SQ daily (WT < 150 kg, CrCl > 30 mL/min) *Enoxaparin/Lovenox 30 mg SQ daily (WT < 150 kg, CrCl > 10-29 mL/min) *Enoxaparin/Lovenox 30 mg SQ BID (WT < 150 kg, CrCl > 30 mL/min) AND/OR *Sequential Compression Device (SCD) 5 or more Highest Order ONE of the following medications: *Heparin 5000 units SQ TID (Preferred with Epidurals) *Enoxaparin/Lovenox 40 mg SQ daily (WT < 150 kg, CrCl > 30 mL/min) *Enoxaparin/Lovenox 30 mg SQ daily (WT < 150 kg, CrCl > 10-29 mL/min) *Enoxaparin/Lovenox 30 mg SQ BID (WT < 150 kg, CrCl > 30 mL/min) AND *Sequential Compression Device (SCD) Assessment and Plan - Plan 37-year-old female admitted for apparent heroin overdose: Active daily IV drug user/heroine overdose: - Patient appears to be protecting her airway. Clinically stable. Vital signs stable. Status post 1 dose of Narcan by EMS. - Will admit for observation - Supportive care with IV fluid. - Patient would benefit from discharge to [facility] for treatment of polysubstance abuse. Mildly elevated LFTs: Likely secondary to polysubstance use and dehydration. - IVF. - Expect improvement with AM labs.
[2017-12-29] MEDS: Sod Chloride 0.9% Inj 1,000 ML IV.CONT SCH (16:46)
[2017-12-29] MEDS: Senna/Docusate Sodium 8.6/50 MG Tablet PO SCH (22:05)
[2017-12-30] MEDS: Sod Chloride 0.9% Inj 1,000 ML IV.CONT SCH ×2 (02:02→14:07)
[2017-12-30] MEDS: Senna/Docusate Sodium 8.6/50 MG Tablet PO SCH (08:29)
[2017-12-30 10:13] LABS: Albumin 2.8 g/dL (3.4-5.0); Anion Gap 6 meq/L (5-15); Aspartate Aminotransferase 128 U/L (15-37); Blood Urea Nitrogen 8 mg/dL (7-18); Calcium 7.7 mg/dL (8.5-10.1); Carbon Dioxide 26.3 meq/L (21.0-32.0); Chloride 107 meq/L (98-107); Glomerular Filtration Rate Greater Than 89 mL/min (>89); Glucose,Random 83 mg/dL (74-106); Potassium 4.2 meq/L (3.5-5.1); Sodium 139 meq/L (136-145)
[2017-12-30 10:15] LABS: Alanine Aminotransferase 214 U/L (10-53); Alkaline Phosphatase 114 U/L (45-117); Total Protein 6.3 g/dL (6.4-8.2)
[2017-12-30 13:39] LABS: Hepatitis A IgM Antibody Nonreactive (Nonreactive); Hepatitits B Surface Antigen Nonreactive (Nonreactive)
--- NOTE | 2017-12-30 14:51 | P.PN ---
Subjective Interval history: Patient is seen lying in bed. She is complaining of pain all over her body and is crying. At the same time she is eating peanut butter and crackers. she is also complaining of right upper quadrant abdominal pain that has been there for some time. Denies any history of hep C. Denies suicidal intention or desire to hurt her self. States that she simply took too much. Physical Exam Vital signs: Vital Signs 12/29/17 16:27 12/29/17 17:28 12/29/17 20:00 Temperature 97.5 F L 98.1 F Pulse Rate 64 73 Respiratory Rate 16 15 18 Blood Pressure 105/69 111/80 Pulse Oximetry 97 99 12/29/17 22:45 12/30/17 00:00 12/30/17 04:00 Temperature 97.6 F 98.8 F Pulse Rate 72 65 81 Respiratory Rate 16 16 Blood Pressure 96/60 L 117/71 Pulse Oximetry 98 95 12/30/17 07:20 12/30/17 11:58 Temperature 99.1 F 98.7 F Pulse Rate 84 98 H Respiratory Rate 20 20 Blood Pressure 113/67 124/79 Pulse Oximetry 98 95 Intake & Output 12/29/17 12/30/17 12/30/17 18:59 06:59 18:59 Intake Total 1000 / 1000 1600 / 1600 1000 / 1000 Balance 1000 / 1000 1600 / 1600 1000 / 1000 Weight 61.235 kg Intake: IV 1000 / 1000 900 / 900 1000 / 1000 NS Inj 1,000 ML @ 100 mls/hr IV 900 / 900 1000 / 1000 .CONT .Q10H BRIE Rx#:[id number] NS Inj 1,000 ML @ Wide Open IV. 1000 / 1000 SIG BOLUS ONE Rx#:[id number] Oral 700 / 700 Other: # Voids 1 Weight On Admission 61.235 kg Narrative: GENERAL: Well-nourished, well-developed adult female in no obvious distress. SKIN: Warm and dry. HEAD: Atraumatic. Normocephalic. CARDIOVASCULAR: Regular rate and rhythm. RESPIRATORY: No accessory muscle use. Clear to auscultation. Breath sounds equal bilaterally. GASTROINTESTINAL: Abdomen soft, mild tenderness over right upper quadrant, non- distended. Positive bowel sounds. MUSCULOSKELETAL: Extremities without clubbing, cyanosis, or edema. No obvious deformities. NEUROLOGICAL: Awake and alert. No obvious cranial nerve deficits. Motor grossly within normal limits. Normal speech. Results - Labs CBC & Chem 7: 12/29/17 11:02 12/30/17 08:49 Laboratory Results - last 24 hr 12/29/17 12/29/17 12/29/17 17:59 21:38 21:55 Sodium Potassium Chloride Carbon Dioxide Anion Gap BUN Creatinine Estimated GFR POC Glucose 70 67 L 94 Random Glucose Calcium Total Bilirubin AST ALT Alkaline Phosphatase Total Protein Albumin Hepatitis A IgM Ab Hep Bs Antigen Hep B Core IgM Ab Hep C IgG Ab HIV 1&2 Ab/P24 Ag 4thGn 12/30/17 12/30/17 12/30/17 08:49 11:21 12:06 Sodium 139 Potassium 4.2 D Chloride 107 Carbon Dioxide 26.3 Anion Gap 6 BUN 8 Creatinine 0.65 Estimated GFR Greater than 89 POC Glucose 106 Random Glucose 83 Calcium 7.7 L Total Bilirubin 0.2 AST 128 H ALT 214 H Alkaline Phosphatase 114 Total Protein 6.3 L Albumin 2.8 L Hepatitis A IgM Ab Nonreactive Hep Bs Antigen Nonreactive Hep B Core IgM Ab Nonreactive Hep C IgG Ab Reactive H HIV 1&2 Ab/P24 Ag 4thGn Nonreactive Assessment and Plan - Assessment (1) Hepatitis C Code(s): B19.20 - Unspecified viral hepatitis C without hepatic coma Status: Acute (2) IVDU (intravenous drug user) Code(s): F19.90 - Other psychoactive substance use, unspecified, uncomplicated Status: Chronic (3) Drug overdose Code(s): T50.901A - Poisoning by unspecified drugs, medicaments and biological substances, accidental (unintentional), initial encounter Status: Acute - Plan 37-year-old female admitted for apparent heroin overdose: Active daily IV drug user/heroine overdose: - Recovered from OD but remains drug seeking - Patient would benefit from discharge to [facility] for treatment of polysubstance abuse. Mildly elevated LFTs: -Possible secondary to polysubstance use and dehydration. IVF given. -No improvement with AM labs. Hep panel positive for C antibody. HIV negative. Ultrasound ordered. -Recommending outpatient follow-up for the hepatitis C to evaluate need for treatment DVT prophylaxis: Ambulatory Discharge planning: Likely home (3) Drug overdose Qualifiers: Encounter type: initial encounter Injury intent: accidental or unintentional Qualified Code(s): T50.901A - Poisoning by unspecified drugs, medicaments and biological substances, accidental (unintentional), initial encounter
--- NOTE | 2017-12-30 15:22 | ECG ---
Date Performed: 12/29/2017 Time Performed: 10:51:43 PTAGE: 37 years EKG: Sinus rhythm BORDERLINE RIGHT AXIS DEVIATION BORDERLINE ECG NO PREVIOUS TRACING DOCTOR: Felipa Bonds Interpretating Date/Time 12/30/2017 15:19:52
--- NOTE | 2017-12-30 15:36 | US ---
EXAM DATE: 12/30/2017 3:28 PM EST AGE/SEX: 37 years / Female INDICATIONS: Elevated LFT's. CLINICAL DATA: This is the patient's initial encounter. Patient reports that signs and symptoms have been present for 1 day and indicates a pain score of 3/10. MEDICAL/SURGICAL HISTORY: . IVDU. Polysubstance abuse. Dehydration. . Sinus surgery. COMPARISON: No prior exams available for comparison. MEASUREMENTS: Liver:__ 15.9 cm. Common Bile Duct:__ 5mm. Right Kidney:__ 12.4 x 5.8 x 5.3 cm. FINDINGS: Liver: Normal echotexture without focal lesion or ductal dilatation. Portal Vein: Hepatopedal flow seen in portal vein. Common Duct: No intraluminal mass or stone visualized. Gallbladder: Demonstrates no wall thickening or pericholecystic fluid. No stones visualized. Pancreas: The visualized portions are within normal limits Right Kidney: Central renal pelvis is mildly prominent in size although there is no significant stella ceal dilatation. Right kidney otherwise appears unremarkable. No sonographic evidence for radiopaque calculi. Other: None. CONCLUSION: 1. Unremarkable sonographic appearance of the liver. No biliary ductal dilatation. 2. No cholelithiasis or sonographic evidence for cholecystitis. 3. Nonspecific prominence of the central right renal pelvis without calyceal dilatation to suggest h ydronephrosis at this time. Electronically signed by: Phill Tsang MD 12/30/2017 3:35 PM EST
[2017-12-30 15:38] VITALS: BP 123/74; PULSE 85; RESP 16; TEMP 101; O2SAT 98
--- NOTE | 2017-12-30 16:31 | P.DS ---
Date of admission: 12/29/17 14:15 Primary care physician: UNKNOWN Attending physician on discharge: Jocelin Guy Anticipated date of discharge: 12/30/17 Brief History from admission: 37-year-old active IV drug user who is homeless brought in by EMS for apparent overdose. Patient reportedly walked into [facility] and went into the bathroom to inject heroin. She was found lethargic by staff and EMS was called. She was given 1 dose of Narcan. On my evaluation, the patient remains lethargic and cannot contribute to the history. History from the EMR reviewed. Unfortunately the patient has had repeated admission related to IV drug use. DS: Diagnosis - Discharge Diagnosis (1) Hepatitis C Status: Acute (2) IVDU (intravenous drug user) Status: Chronic (3) Drug overdose Status: Acute DS: Summary Hospital Course: 37-year-old female admitted for apparent heroin overdose: Active daily IV drug user/heroine overdose: - Recovered from OD but remains drug seeking - Patient would benefit from discharge to [facility] for treatment of polysubstance abuse. Mildly elevated LFTs: -Possible secondary to polysubstance use and dehydration. IVF given. -No improvement with AM labs. Hep panel positive for C antibody. HIV negative. Ultrasound ordered. -Recommending outpatient follow-up for the hepatitis C to evaluate need for treatment - Time Spent with Patient Total time spent providing and/or coordinating discharge services: Less than 30 minutes - Quality: VTE Deep Vein Thrombosis/Pulmonary Embolism Present on Admission: No Exam Vital signs: Vital Signs 12/29/17 16:27 12/29/17 17:28 12/29/17 20:00 Temperature 97.5 F L 98.1 F Pulse Rate 64 73 Respiratory Rate 16 15 18 Blood Pressure 105/69 111/80 Pulse Oximetry 97 99 12/29/17 22:45 12/30/17 00:00 12/30/17 04:00 Temperature 97.6 F 98.8 F Pulse Rate 72 65 81 Respiratory Rate 16 16 Blood Pressure 96/60 L 117/71 Pulse Oximetry 98 95 12/30/17 07:20 12/30/17 11:58 12/30/17 15:36 Temperature 99.1 F 98.7 F 101.0 F H Pulse Rate 84 98 H 85 Respiratory Rate 20 20 16 Blood Pressure 113/67 124/79 123/74 Pulse Oximetry 98 95 98 Intake & Output 12/29/17 12/30/17 12/30/17 18:59 06:59 18:59 Intake Total 1000 / 1000 1600 / 1600 1000 / 1000 Balance 1000 / 1000 1600 / 1600 1000 / 1000 Weight 61.235 kg Intake: IV 1000 / 1000 900 / 900 1000 / 1000 NS Inj 1,000 ML @ 100 mls/hr IV 900 / 900 1000 / 1000 .CONT .Q10H BRIE Rx#:[id number] NS Inj 1,000 ML @ Wide Open IV. 1000 / 1000 SIG BOLUS ONE Rx#:[id number] Oral 700 / 700 Other: # Voids 1 5 # Bowel Movements 3 Weight On Admission 61.235 kg Narrative: GENERAL: Well-nourished, well-developed adult female in no obvious distress. SKIN: Warm and dry. HEAD: Atraumatic. Normocephalic. CARDIOVASCULAR: Regular rate and rhythm. RESPIRATORY: No accessory muscle use. Clear to auscultation. Breath sounds equal bilaterally. GASTROINTESTINAL: Abdomen soft, mild tenderness over right upper quadrant, non- distended. Positive bowel sounds. MUSCULOSKELETAL: Extremities without clubbing, cyanosis, or edema. No obvious deformities. NEUROLOGICAL: Awake and alert. No obvious cranial nerve deficits. Motor grossly within normal limits. Normal speech. Results Procedures completed during hospitalization: none Labs on day of discharge: Labs from last 24 hours 12/30/17 12/30/17 12/30/17 15:10 12:06 11:21 Sodium Potassium Chloride Carbon Dioxide Anion Gap BUN Creatinine Estimated GFR POC Glucose 147 H 106 Random Glucose Calcium Total Bilirubin AST ALT Alkaline Phosphatase Total Protein Albumin Hepatitis A IgM Ab Nonreactive Hep Bs Antigen Nonreactive Hep B Core IgM Ab Nonreactive Hep C IgG Ab Reactive H HIV 1&2 Ab/P24 Ag 4thGn Nonreactive 12/30/17 12/29/17 12/29/17 08:49 21:55 21:38 Sodium 139 Potassium 4.2 D Chloride 107 Carbon Dioxide 26.3 Anion Gap 6 BUN 8 Creatinine 0.65 Estimated GFR Greater than 89 POC Glucose 94 67 L Random Glucose 83 Calcium 7.7 L Total Bilirubin 0.2 AST 128 H ALT 214 H Alkaline Phosphatase 114 Total Protein 6.3 L Albumin 2.8 L Hepatitis A IgM Ab Hep Bs Antigen Hep B Core IgM Ab Hep C IgG Ab HIV 1&2 Ab/P24 Ag 4thGn 12/29/17 17:59 Sodium Potassium Chloride Carbon Dioxide Anion Gap BUN Creatinine Estimated GFR POC Glucose 70 Random Glucose Calcium Total Bilirubin AST ALT Alkaline Phosphatase Total Protein Albumin Hepatitis A IgM Ab Hep Bs Antigen Hep B Core IgM Ab Hep C IgG Ab HIV 1&2 Ab/P24 Ag 4thGn - Impressions ITS Impressions Liver Ultrasound 12/30/17 00:00 CONCLUSION: 1. Unremarkable sonographic appearance of the liver. No biliary ductal dilatation. 2. No cholelithiasis or sonographic evidence for cholecystitis. 3. Nonspecific prominence of the central right renal pelvis without calyceal dilatation to suggest hydronephrosis at this time. Discharge Plan - Discharge Disposition Patient Disposition: Discharge Home - Discharge Condition Condition: Stable - Discharge Order Discharge Orders: Discharge Order (Routine); Ordered 12/30/17 Ordered By: Manju Pugh - Physicians Team Primary Care Provider: UNKNOWN, Attending Provider: Jocelin Guy
== END 2017-12-30 17:23 | disposition home or self-care (01) ==
LOC: NEPE 10:40 → NEDA 10:40 → NEPHCDU 15:49
PROVIDERS: ADMIT Family Medicine; ATTEND Family Medicine